=== PATIENT | female | born 1950 | race Caucasian/White ===

== ENCOUNTER 2018-09-29 19:23 | Inpatient (IN) | payer MEDICARE, OTHER, SELFPAY ==
[2018-07-21 10:18] VITALS: BMI 39.9
[2018-09-29 19:30] VITALS: BP 144/61; PULSE 79; RESP 20; TEMP 37; O2SAT 94
[2018-09-29 19:31] VITALS: BP 128/52
[2018-09-29 20:10] VITALS: BMI 42.6
--- NOTE | 2018-09-29 20:20 | PCM.HP.STD ---
Problem List (1) Acute respiratory failure with hypoxemia Status: Acute History of Present Illness Date of Admission: 09/29/18 Chief Complaint: shortness of breath The patient is a 67 year old F with a significant history of CVA; CAD status post stent; diabetes mellitus; asthma; hypertension; morbid obesity; and tobacco abuse who presented at [place] [facility] with 4-month history of progressively worsening shortness of breath at rest and increases tremendously with mild exertion. Patient reported that she has been on a course of steroids 2 times recently and a time course of antibiotics. Patient was transferred from [place] emergency department to our hospital. Associated with her symptoms is dry cough that started about a month ago. Also she reports fatigue and weakness. She thinks she has gained about 33 pounds in 3-4 weeks. She reports her current weight as 211 pounds and she thinks that about 3-4 weeks ago she was 178 pounds. He denies orthopnea or paroxysmal nocturnal dyspnea. She thinks that she has swelling in her bilateral legs. However she reports that her PCP did not think that she has a swollen in her bilateral legs but later her PCP agreed that she may have some mild bilateral swelling in her legs but she was not started on any treatment for this. Her PCP schedule her for an echocardiogram which is yet to be done; also her PCP recommended sleep study which patient refused. Patient refused sleep study because she does not have any problems sleeping and she does not snore. Also patient is scheduled to have an appointment with Dr. Mascorro, [employer] Carriage Operator on October 18, 2018. She reported that at [facility] she was made to walk and her oxygen saturations drop into the 60s. CTPA at [facility] showed no evidence of pulmonary embolism. Mild central lobular emphysema; prominent mediastinal and bilateral hilar lymph nodes likely reactive given chronic lung disease; mild cardiac enlargement; dilated main pulmonary artery as may be seen with pulmonary arterial hypertension; multiple tiny 2-3 mm stable nodules in the right upper and right middle lobe requiring no further imaging follow-up. EKG at [facility] showed normal sinus rhythm with sinus arrhythmia and right axis deviation. Reported patient's oxygen saturation was 63% on room air at [place] ED. Since patient has a history of CAD with stent, accepting physician at our Hospital wanted CAD to be ruled out so patient was admitted to the PCU. Past Medical History Medical History: Medical History (Last Reviewed 09/30/18 @ 02:02 by Dallas Mercer MD) Anxiety and depression F41.9, F32.9 Arthritis M19.90 Asthma J45.909 Back problem M53.9 Cancer C80.1 Cataracts, bilateral H26.9 Chronic headaches R51 GI problem R19.8 Gallstones K80.20 Heart disease I51.9 High triglycerides E78.1 Hives L50.9 Hyperlipidemia E78.5 IBS (irritable bowel syndrome) K58.9 Neuropathy G62.9 Pancreatitis K85.90 Seasonal allergies J30.2 Stroke I63.9 Type 2 diabetes mellitus E11.9 Dx : 1995 last exacerbation : DKA : never Hypoglycemic episode : never ER visit : never UTI (urinary tract infection) N39.0 Vision problem H54.7 HTN (hypertension) I10 Allergies ciprofloxacin Allergy (Severe, Verified 09/29/18 09:27) Hives clindamycin Allergy (Severe, Verified 09/29/18 09:27) Hives formoterol [From Dulera] Allergy (Severe, Verified 09/29/18 09:27) Unknown mometasone furoate [From Dulera] Allergy (Severe, Verified 09/29/18 09:27) Unknown Penicillins Allergy (Severe, Verified 09/29/18 09:27) Hives Sulfa (Sulfonamide Antibiotics) Allergy (Severe, Verified 09/29/18 09:27) Hives acetaminophen [From Percocet] Allergy (Unknown, Verified 09/29/18 09:27) Rash codeine Allergy (Unknown, Verified 09/29/18 09:27) Unknown fluticasone [From Advair Diskus] Allergy (Unknown, Verified 09/29/18 09:27) Unknown gemfibrozil [From Lopid] Allergy (Unknown, Verified 09/29/18 09:27) Unknown metformin Allergy (Unknown, Verified 09/29/18 09:27) Unknown oxycodone [From Percocet] Allergy (Unknown, Verified 09/29/18 09:27) Rash salmeterol [From Advair Diskus] Allergy (Unknown, Verified 09/29/18 09:27) Unknown Home Medications: Ambulatory Orders Medication Instructions Recorded albuterol sulfate 1.25 mg/3 mL 1.25 mg INHALATION Q4H PRN 07/21/18 solution for nebulization albuterol sulfate HFA 90 2 puff INHALATION Q6H PRN 07/21/18 mcg/actuation aerosol inhaler amitriptyline 25 mg tablet 25 mg PO QHS 07/21/18 atenolol 25 mg tablet 25 mg PO DAILY@1500 07/21/18 budesonide-formoterol HFA 80 2 puff INHALATION BID 07/21/18 mcg-4.5 mcg/actuation aerosol inhaler calcium citrate 200 mg (950 mg) 400 mg PO QHS tab 07/21/18 tablet clopidogrel 75 mg tablet 75 mg PO DAILY 07/21/18 cyclobenzaprine 5 mg tablet 5 mg PO TID PRN PRN 07/21/18 dicyclomine 20 mg tablet 20 mg PO TID tab 07/21/18 fenofibrate 54 mg tablet 108 mg PO DAILY tab 07/21/18 gabapentin 800 mg tablet 800 mg PO TID tab 07/21/18 losartan 100 mg tablet 100 mg PO DAILY@1500 07/21/18 montelukast 10 mg tablet 10 mg PO QHS 07/21/18 omega-3 fatty acids 500 mg capsule 500 mg PO BID cap 07/21/18 omeprazole 40 mg capsule,delayed 40 mg PO DAILY 07/21/18 release simvastatin 40 mg tablet 40 mg PO QHS 07/21/18 Fluorometholone [Fml] 1 drop OP TID 09/29/18 Insulin NPH Human [Humulin N Pen] 44 units SQ BREAKFAST 09/29/18 Insulin NPH Human [Humulin N Pen] 48 units SQ DINNER 09/29/18 Insulin Regular, Human [Novolin R] 15 - 20 unit SQ LUNCH 09/29/18 Insulin Regular, Human [Novolin R] 30 unit SQ BREAKFAST 09/29/18 Insulin Regular, Human [Novolin R] 30 unit SQ DINNER 09/29/18 Magnesium Oxide 400 mg PO QHS 09/29/18 Multivitamin with Minerals 1 tab PO DAILY 09/29/18 [Multiple Vitamin] Surgical History: Surgical History (Last Reviewed 09/30/18 @ 02:02 by Dallas Mercer MD) H/O: Z98.891 H/O: hysterectomy Z90.710 Hx of cataract surgery Z98.49 Hx of cholecystectomy Z90.49 Lives: Spouse/ Significant Other Smoking Status: Current every day smoker Alcohol: None - *Family History Maternal Family History: Family History (Last Reviewed 09/30/18 @ 02:02 by Dallas Mercer MD) Mother Asthma Arthritis Hypertension Grandmother Cancer Brother Diabetes Heart disease Hypertension Father Heart disease Hypertension Review of Systems Constitutional: Reports: Weakness, Weight Change - She reports an increase in the weight last 3-4 weeks., Fatigue. Denies: Chills, Fever HEENT: Denies: Head Aches, Sinus Congestion, Sinus Drainage Cardiovascular: Reports: Edema - Bilateral legs.. Denies: Chest Pain, Palpitations Respiratory: Reports: Cough, Shortness of breath at rest. Denies: Sputum production Gastrointestinal: Denies: Abdominal Pain, Nausea, Vomiting Genitourinary: Denies: Dysuria Musculoskeletal: Denies: Joint Pain, Joint Tenderness Skin: Denies: Rash, Wounds Neurological: Denies: Numbness, Tingling, Focal weakness Psychiatric: Denies: Anxiety, Depression, Homicidal Ideations, Suicidal Ideations Hematologic/ Lymphatic: Denies: Easy Bruising, Easy Bleeding VTE Information - Inpt Only VTE Present on Admission: No VTE Mechan Device Prophylaxis: None VTE Pharm Prophylaxis ordered?: Yes Patient Problems: Active and Suspected Problems (Last Reviewed 09/30/18 @ 02:02 by Dallas Mercer MD) Acute respiratory failure with hypoxemia (Acute) - Physical Exam General: Alert, Oriented x3, Cooperative HEENT: Atraumatic, PERRLA, EOMI, Normocephalic Neck: Supple, No JVD, Negative Carotid Bruits Lungs: Normal air movement, Diminished Cardiovascular: Regular rate, No murmurs Abdomen: Bowel Sounds Present, Soft, Non Tender Extremities: No edema, Capillary Refill Less than 3 Seconds Skin: No rashes, No breakdown Musculoskeletal: No Tenderness to Palpation of Joints or Extremities Neurological: Neuro grossly intact Psych/Mental Status: Normal Affect, Appropriate Weight: 95.8 kg Body Mass Index (BMI) 42.6 Assessment/Plan All Active Problems (Last Reviewed 09/30/18 @ 02:02 by Dallas Mercer MD) Acute respiratory failure with hypoxemia (Acute) The patient is a 67 year old F with a significant history of CVA; CAD status post stent; diabetes mellitus; asthma; hypertension; morbid obesity; and tobacco abuse who presented with 4-month history of progressively worsening shortness of breath at rest which increases tremendously with mild exertion and was found to be severely hypoxic fast on room air at outside hospital. Acute on chronic hypoxemic respiratory failure CTPA from outside Hospital without acute pathology Her proBNP at outside hospital was not remarkable. Her white count at outside hospital was not remarkable. Her hematocrit at outside hospital was elevated pointing to chronic hypoxemia. Rapid influenza a and B was negative at outside hospital. Her troponin was unremarkable at outside hospital. We will get echocardiogram to evaluate her left lung and pulmonary artery pressures.. We will start patient on scheduled DuoNeb and as needed albuterol. Patient reluctantly agreed to prednisone. She received Solu-Medrol at outside hospital. We will continue patient on prednisone 40 mg daily and will consult physical therapy manager to help figure out the etiology of her acute hypoxemic respiratory failure. Different diagnosis include worsening asthma; polymyositis/dermatomyositis; heart failure; pickwickian syndrome or other. Consider discussing with cardiology to see whether patient would be a candidate for stress testing or coronary angiogram. At [place] ED was unremarkable and his symptoms have been going on for 4 months so there is no need to trend at this time. At the time of examination I did not appreciate any edema on the bilateral legs. Daily weight beginning tonight. Review of labs at outside hospital showed bicarbonate of 35 which may be due to chronic hypercapnia. We will get ABG. Consider VQ scan for CTPE if pulmonary pressures are elevated. Hypertension On admission her blood pressure was within goal. Cozaar; spironolactone and metoprolol continued Trend blood pressures Adjust blood pressure medication as needed. Diabetes mellitus Admit admission blood glucose is was not within goal. Home hypoglycemic regimen reviewed. Will adjust and add a correction scale regimen to her home insulin . Fingerstick q. before meals at bedtime.Adjust insulin regimen as per history. She had a prescription from [facility]; Human Resources Benefits Coordinator Nurse Practitioner for A1c and urine micro albumin; and patient is requesting that this be done inpatient. Accordingly will order A1c and urine microalbumin. History of CVA Plavix continued History of CAD with stents Plavix continued. Tobacco abuse Counseled. She reports taking 3-4 cigarettes/day at this time. Nicotine patch ordered DVT Prophylaxis Subcutaneous heparin. Code Visit Inpatient E&M: 17505 Init Hosp L3
[2018-09-29 20:35] VITALS: BMI 42.7
--- NOTE | 2018-09-29 20:41 | ECHOD_ITS ---
Reason For Study: [email or web address].[email or web address] Procedure This was a 2D Doppler, Color Flow transthoracic echocardiogram. Exam performed portable in patient room. Left Ventricle Normal size and thickness. The estimated ejection fraction is 65-70 %. Normal diastology for age. No regional wall motion abnormalities noted. Right Ventricle Mildly dilated right ventricle. Normal systolic function. Atria The left atrium is mildly enlarged. Normal right atrium. Normal atrial septum. Mitral Valve Mild diffuse mitral valve thickening. Moderate mitral annular calcification extending into the posterior leaflet. Trivial mitral valve insufficiency. Tricuspid Valve Normal tricuspid valve. Mild (1+) tricuspid valve insufficiency. Right ventricular systolic pressure estimated to be 71 mmHg. Severe pulmonary hypertension. Aortic Valve Trisinus/trileaflet aortic valve. Mild diffuse aortic valve thickening. Pulmonic Valve Normal pulmonic valve. Great Vessels Normal aortic root. Normal arch. Normal inferior vena cava. Inferior vena cava collapse with sniff. Pericardium/Pleural No pericardial effusion. MMode/2D Measurements & Calculations LVIDd: 5.8 cm IVSd: 0.98 cm Ao root diam: 2.8 cm LVIDs: 3.6 cm LVPWd: 1.0 cm RVDd: 3.8 cm FS: 38.7 % LAV(MOD-bp): 67.5 ml LA A4 area: 21.5 cm2 LA dimension(2D): 4.6 cm LAV(MOD-bp) Indexed: 35.8 ml/m2 LAV(MOD-sp2): 62.9 ml LAV(MOD-sp4): 61.2 ml RA A4 area: 17.6 cm2 Doppler Measurements & Calculations MV E max manish: 125.5 cm/sec Lat Peak E' Manish: 7.9 cm/sec Med Peak E' Manish: 6.8 cm/sec MV A max manish: 108.2 cm/sec E/E' lat: 15.8 E/E' med: 18.5 MV E/A: 1.2 Ao V2 max: 147.3 cm/sec LV V1 max: 107.9 cm/sec PA V2 max: 101.0 cm/sec Ao max P.7 mmHg LV V1 max P.7 mmHg TR max manish: 373.7 cm/sec TR max P.4 mmHg Interpretation Summary The estimated ejection fraction is 65-70 %. Normal diastology for age. Mildly dilated right ventricle. The left atrium is mildly enlarged. Trivial mitral valve insufficiency. Mild (1+) tricuspid valve insufficiency. Right ventricular systolic pressure estimated to be 71 mmHg. Severe pulmonary hypertension. There is no comparison study available. Ordering Physician: Dallas Mercer Referring Physician: Natalia Nazario Performed By: Roxie Villareal, DARREN, RVT
[2018-09-29 20:51] LABS: Bedside Glucose 203 mg/dL (70-110)
[2018-09-29 20:59] VITALS: PULSE 86
[2018-09-29 21:53] LABS: Hemoglobin A1c 8.8 % (4.2-6.3)
[2018-09-29] MEDS: Amitriptyline 25 MG Tablet PO (22:27)
[2018-09-29] MEDS: Dicyclomine 10 MG Capsule 20 MG PO (22:27)
[2018-09-29] MEDS: Insulin NPH Human 100 UNITS/ML PEN 48 UNITS SC (22:29)
[2018-09-29] MEDS: Atorvastatin Calcium 20 MG Tablet PO (22:29)
[2018-09-29] MEDS: Insulin Lispro 100 UNIT/ML INSULN.PEN 25 UNIT SQ (22:30)
[2018-09-29] MEDS: Insulin Lispro 100 UNIT/ML INSULN.PEN SQ (22:31)
[2018-09-29] MEDS: Magnesium Oxide 400 MG Tablet PO (22:32)
[2018-09-29] MEDS: Montelukast 10 MG Tablet PO (22:33)
[2018-09-29] MEDS: Gabapentin 800 MG Tablet PO (22:33)
[2018-09-29 22:38] VITALS: BP 135/56; PULSE 84; RESP 18; TEMP 36.6; O2SAT 94
[2018-09-29 22:53] LABS: Microalbumin,Random Urine 56.1 mg/L (NO RANGE EST.)
[2018-09-29 22:58] VITALS: PULSE 90
[2018-09-30] VITALS (19 sets, daily range): BP systolic 110–125; BP diastolic 40–60; PULSE 69–101; RESP 12–24; TEMP 36.5–36.8; O2SAT 81–98
[2018-09-30] MEDS: Ipratropium/Albuterol Sulfate 3 ML AMPUL.NEB INHALATION ×5 (00:10→19:02)
[2018-09-30] MEDS: Insulin Lispro 100 UNIT/ML INSULN.PEN SQ ×5 (03:08→20:56)
[2018-09-30 03:16] LABS: Bedside Glucose 390 mg/dL (70-110)
[2018-09-30 05:56] LABS: Allen Test POS; Base Excess 7 mmol/L (-2 to +2); Bicarbonate 34.5 mmol/L (22-26); Blood Gas Specimen Type ART; O2 Delivery Device Nasal Can; PO2 87 mmHG (75-100); SITE R Radial; SO2 94 % (95-99); Time Given 546; Total Carbon Dioxide 37 mmol/L; pCO2 79.3 mmHg (35-45); pH 7.25 (7.35-7.45)
[2018-09-30] MEDS: Dicyclomine 10 MG Capsule 20 MG PO ×3 (06:13→20:55)
[2018-09-30] MEDS: Gabapentin 800 MG Tablet PO ×3 (06:14→20:55)
[2018-09-30 06:55] LABS: Bedside Glucose 298 mg/dL (70-110)
[2018-09-30 07:10] LABS: Absolute Lymphocyte Count 0.44 X10^3/ul (0.83-4.51); Absolute Neutrophil Count 8.9 X10^3/uL (2.0-7.7); Hematocrit 48.8 % (37-47); Hemoglobin 14.7 g/dl (12.0-15.0); Lymphocyte # 0.44 X10^3/ul (4.0); Lymphocyte % 4.6 % (19-41); Mean Corp Hgb Conc 30.1 g/gl (32-36); Mean Corpuscular Hgb 29.1 pg (27.0-32.0); Mean Corpuscular Volume 96.6 fL (81-99); Mean Platelet Vol. 11.6 fl (6.2-12.0); Monocyte# 0.32 X10^3/uL; Monocyte% 3.3 % (0-10); Neutrophil # 8.89 X10^3/uL (2.7-7.7); Neutrophil % 91.9 % (47-70); POSITIVE COUNT NO; POSITIVE DIFFERENTIAL YES; POSITIVE MORPHOLOGY NO; Platelet Count 149 K/mm3 (150-450); RBC Distribution Width CV 16.1 % (11.6-14.6); RBC Distribution Width SD 56.3 fl (35.1-43.9); Red Blood Count 5.05 M/mm3 (4.2-5.4); White Blood Count 9.7 K/mm3 (4.4-11.0)
[2018-09-30 07:11] LABS: Differential Indicated SCAN CRITERIA MET
[2018-09-30 07:19] LABS: Anion Gap 7 (5-15); BUN 15 mg/dL (7-18); BUN/Creat Ratio 14.6 RATIO (10-20); Calcium,Total 8.7 mg/dL (8.5-10.1); Chloride 96 mmol/L (98-107); Creatinine, Serum 1.03 mg/dL (0.55-1.02); EST Glomerular Filtration Rate 57 mL/min (>60); Est Glom Filt Rate - Afr Amer 68 mL/min (>60); Estimated Creatinine Clearance 79.39 ml/min; Glucose 323 mg/dL (74-106); Potassium 5.3 mmol/L (3.5-5.1); Sodium Level 137 mmol/L (136-145)
[2018-09-30] MEDS: predniSONE 20 MG Tablet 40 MG PO (08:40)
[2018-09-30] MEDS: Fenofibrate 145 MG Tablet PO (08:40)
[2018-09-30] MEDS: Multivitamins,Ther W-Minerals Tablet 1 TABLET PO (08:40)
[2018-09-30] MEDS: Pantoprazole Sodium 40 MG Tablet PO (08:40)
[2018-09-30] MEDS: Clopidogrel Bisulfate 75 MG Tablet PO (08:40)
--- NOTE | 2018-09-30 10:33 | PCM.CONS.GEN ---
Problem List (1) Morbid obesity due to excess calories Status: Chronic (2) Coronary artery disease Status: Chronic Qualifiers: Coronary Disease-Associated Artery/Lesion type: [place] artery [place] vs. transplanted heart: [place] heart Associated angina: without angina Qualified Code(s): I25.10 - Atherosclerotic heart disease of [place] coronary artery without angina pectoris (3) IBS (irritable bowel syndrome) Status: Chronic (4) History of stroke Status: Resolved (5) Asthma Status: Chronic Qualifiers: Asthma severity: mild Asthma persistence: intermittent Asthma complication type: uncomplicated Qualified Code(s): J45.20 - Mild intermittent asthma, uncomplicated (6) Acute respiratory failure with hypoxia and hypercapnia Status: Acute (7) Exertional shortness of breath Status: Acute (8) Uncontrolled type 2 diabetes mellitus Status: Chronic Qualifiers: Glycemic state: with hyperglycemia Comment: Today is second visit with this patient. Seen about 2 months ago at which time patient wanted to know about weight loss. Reason for Consult Date of Consultation: 09/30/18 Reason for Consultation: Acute combined respiratory failure History of Present Illness: The patient is a 67 year old F, with past medical history listed below, who presented to [facility] on 09/29/2018 as a direct admission from [facility] secondary to a 4-month history of progressive shortness of breath. Upon evaluation at [facility], patient reportedly desaturated into the 60s with ambulation. A CT scan of the chest showed no evidence of pulmonary embolism, but dilated main pulmonary artery and multiple subcentimeter nodules. Emphysematous changes were reported. While on PCU, patient was noted to have decreased mental status and tachypnea. An ABG was obtained showing a pH of 7.2 with CO2 retention. Patient was offered BiPAP therapy, but refused. Patient states that she would not want to be intubated, is not interested in BiPAP therapy or CPR. Patient has not discussed this with her at this time. A pulmonary consult was obtained for recommendations moving forward. Patient reportedly has been treated with antibiotics and steroids 2 times since initiation without improvement. Patient states that she continue to worsen, so presented for evaluation. Patient does report that she is gained about 35 pounds over the last 3-4 weeks. Patient denies any orthopnea or PND, but has noted some leg swelling bilaterally. Patient has been seen by her primary care physician and reportedly is to have an echocardiogram later this month. Patient does report a long history of smoking. Patient also has a history of coronary artery disease status post stent and stroke. Patient states that she struggles with her diabetes to keep her sugars under control and has no idea how she gained so much weight so quickly. Patient states her exercise tolerance is approximately 5-10 feet at this time. 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 Patient denies exposure to asbestos or TB. Patient denies any illicit drug use. No recent trauma has been reported. No travel reported. Patient has noticed that she is having more difficulty with word finding recently, similar to what she had following her stroke in the past. Patient states this is highly variable and typically I can make the words if I think hard enough. She denies any other focal neurologic deficits. No dysuria, hemoptysis, hematuria, melena or hematochezia is been reported. Review of systems otherwise negative x10 systems. Past Medical History Past Medical History (Chronic Problems): Chronic Problems (Last Reviewed 09/30/18 @ 02:02 by Dallas Mercer MD) Morbid obesity due to excess calories (Chronic) Coronary artery disease (Chronic) IBS (irritable bowel syndrome) (Chronic) Asthma (Chronic) Uncontrolled type 2 diabetes mellitus (Chronic) Today is second visit with this patient. Seen about 2 months ago at which time patient wanted to know about weight loss. Medical History: Medical History (Last Reviewed 09/30/18 @ 02:02 by Dallas Mercer MD) Anxiety and depression F41.9, F32.9 Arthritis M19.90 Asthma J45.909 Back problem M53.9 Cancer C80.1 Cataracts, bilateral H26.9 Chronic headaches R51 GI problem R19.8 Gallstones K80.20 Heart disease I51.9 High triglycerides E78.1 Hives L50.9 Hyperlipidemia E78.5 IBS (irritable bowel syndrome) K58.9 Neuropathy G62.9 Pancreatitis K85.90 Seasonal allergies J30.2 Stroke I63.9 Type 2 diabetes mellitus E11.9 Dx : 1995 last exacerbation : DKA : never Hypoglycemic episode : never ER visit : never UTI (urinary tract infection) N39.0 Vision problem H54.7 HTN (hypertension) I10 Allergies ciprofloxacin Allergy (Severe, Verified 09/29/18 09:27) Hives clindamycin Allergy (Severe, Verified 09/29/18 09:27) Hives formoterol [From Dulera] Allergy (Severe, Verified 09/29/18 09:27) Unknown mometasone furoate [From Dulera] Allergy (Severe, Verified 09/29/18 09:27) Unknown Penicillins Allergy (Severe, Verified 09/29/18 09:27) Hives Sulfa (Sulfonamide Antibiotics) Allergy (Severe, Verified 09/29/18 09:27) Hives acetaminophen [From Percocet] Allergy (Unknown, Verified 09/29/18 09:27) Rash codeine Allergy (Unknown, Verified 09/29/18 09:27) Unknown fluticasone [From Advair Diskus] Allergy (Unknown, Verified 09/29/18 09:) Unknown gemfibrozil [From Lopid] Allergy (Unknown, Verified 09/29/18 09:27) Unknown metformin Allergy (Unknown, Verified 09/29/18 09:27) Unknown oxycodone [From Percocet] Allergy (Unknown, Verified 09/29/18 09:27) Rash salmeterol [From Advair Diskus] Allergy (Unknown, Verified 09/29/18 09:27) Unknown Home Medications: Ambulatory Orders Medication Instructions Recorded albuterol sulfate 1.25 mg/3 mL 1.25 mg INHALATION Q4H PRN 07/21/18 solution for nebulization albuterol sulfate HFA 90 2 puff INHALATION Q6H PRN 07/21/18 mcg/actuation aerosol inhaler amitriptyline 25 mg tablet 25 mg PO QHS 07/21/18 atenolol 25 mg tablet 25 mg PO DAILY@1500 07/21/18 budesonide-formoterol HFA 80 2 puff INHALATION BID 07/21/18 mcg-4.5 mcg/actuation aerosol inhaler calcium citrate 200 mg (950 mg) 400 mg PO QHS tab 07/21/18 tablet clopidogrel 75 mg tablet 75 mg PO DAILY 07/21/18 cyclobenzaprine 5 mg tablet 5 mg PO TID PRN PRN 07/21/18 dicyclomine 20 mg tablet 20 mg PO TID tab 07/21/18 fenofibrate 54 mg tablet 108 mg PO DAILY tab 07/21/18 gabapentin 800 mg tablet 800 mg PO TID tab 07/21/18 losartan 100 mg tablet 100 mg PO DAILY@1500 07/21/18 montelukast 10 mg tablet 10 mg PO QHS 07/21/18 omega-3 fatty acids 500 mg capsule 500 mg PO BID cap 07/21/18 omeprazole 40 mg capsule,delayed 40 mg PO DAILY 07/21/18 release simvastatin 40 mg tablet 40 mg PO QHS 07/21/18 Fluorometholone [Fml] 1 drop OP TID 09/29/18 Insulin NPH Human [Humulin N Pen] 44 units SQ BREAKFAST 09/29/18 Insulin NPH Human [Humulin N Pen] 48 units SQ DINNER 09/29/18 Insulin Regular, Human [Novolin R] 15 - 20 unit SQ LUNCH 09/29/18 Insulin Regular, Human [Novolin R] 30 unit SQ BREAKFAST 09/29/18 Insulin Regular, Human [Novolin R] 30 unit SQ DINNER 09/29/18 Magnesium Oxide 400 mg PO QHS 09/29/18 Multivitamin with Minerals 1 tab PO DAILY 09/29/18 [Multiple Vitamin] miscInsulin syringes #[id number] ea 09/30/18 Surgical History: Surgical History (Last Reviewed 09/30/18 @ 02:02 by Dallas Mercer MD) H/O: Z98.891 H/O: hysterectomy Z90.710 Hx of cataract surgery Z98.49 Hx of cholecystectomy Z90.49 Lives: Spouse/ Significant Other Smoking Status: Current every day smoker Alcohol: None - *Family History Maternal Family History: Family History (Last Reviewed 09/30/18 @ 02:02 by Dallas Mercer MD) Mother Asthma Arthritis Hypertension Grandmother Cancer Brother Diabetes Heart disease Hypertension Father Heart disease Hypertension Review of Systems Comment: See HPI Patient Problems: Active and Suspected Problems (Last Reviewed 09/30/18 @ 02:02 by Dallas Mercer MD) Acute respiratory failure with hypoxia and hypercapnia (Acute) Acute respiratory failure with hypoxemia (Acute) Objective: CT of the chest was reviewed on disc and I agree with the formal interpretation. - Physical Exam General: Alert, Oriented x3, Cooperative, - - Dozed off intermittently during discussion. Morbidly obese. Mild conversational dyspnea. HEENT: Atraumatic, PERRLA, EOMI, Normocephalic, - - Scleral injection noted Oral: Moist Mucosa, No Gingival or Mucosal Lesions/ Ulcerations, - - Mallampati 4 Neck: Supple, No JVD, No Nodes, Trachea Midline Lungs: No rhonchi, No rales, Diminished - With body habitus, Wheezes, - - Symmetric expansion. No dullness to percussion. Cardiovascular: Regular rate, Regular Rhythm, Normal S1, Normal S2, No murmurs, No rub noted, No Gallop Abdomen: Bowel Sounds Present, Soft, Non Tender, Non-Distended, Obese Extremities: No clubbing, No cyanosis, Edema Skin: - - Arterial insufficiency changes of the lower extremities Musculoskeletal: No Tenderness to Palpation of Joints or Extremities Lymphatic: No Cervical, Supraclavicular, or Inguinal Adenopathy Neurological: Cranial nerves II-XII grossly intact, Neuro grossly intact, Motor Exam 5/5 strength throughout Psych/Mental Status: Appropriate, Flat Affect Vital Signs Temp Pulse Resp BP Pulse Ox 36.6 C 76 18 110/40 L 94 09/30/18 08:37 09/30/18 08:37 09/30/18 08:37 09/30/18 08:37 09/30/18 08:37 Oxygen Flow Rate (L/min) 2 Oxygen Delivery Method Nasal Cannula Weight: 96.2 kg Body Mass Index (BMI) 42.6 Intake and Output for Last 24 Hours 09/28/18 09/29/18 09/30/18 23:59 23:59 23:59 Intake Total 660 / 660 240 / 240 Balance 660 / 660 240 / 240 Microbiology Past 72 Hours 09/30/18 00:15 Respiratory Panel (PCR) - Final Mucosa - Nose Laboratory Tests Past 24 Hrs 09/29/18 09/29/18 09/30/18 21:14 21:49 05:46 WBC RBC Hgb Hct MCV MCH MCHC RDW RDW Differential Plt Count MPV Immature Gran % (Auto) Neut % (Auto) Lymph % (Auto) [place] % (Auto) Eos % (Auto) Baso % (Auto) Absolute Neuts (auto) Absolute Lymphs (auto) Total Counted Specimen Type ART Sample Site R Radial pH 7.25 L Bicarbonate Actual 34.5 H POC Total CO2 37 Base Excess 7 H O2 Saturation 94 L ABG pCO2 79.3 H* ABG pO2 87 Wiley Test POS O2 Delivery Device Nasal Can Liter Flow 5.0 Blood Gas Notified Whom HOSP Blood Gas Notified Time 546 Sodium Potassium Chloride Carbon Dioxide Anion Gap BUN Creatinine Estim Creat Clear Calc Est GFR (MDRD) Af Amer Est GFR (MDRD) Non-Af BUN/Creatinine Ratio Glucose Hemoglobin A1c 8.8 H Calcium Ur Random Microalbumin 56.1 09/30/18 09/30/18 06:30 06:30 WBC 9.7 RBC 5.05 Hgb 14.7 Hct 48.8 H MCV 96.6 MCH 29.1 MCHC 30.1 L RDW 16.1 H RDW Differential 56.3 H Plt Count 149 L MPV 11.6 Immature Gran % (Auto) 0.200 Neut % (Auto) 91.9 H Lymph % (Auto) 4.6 L [place] % (Auto) 3.3 Eos % (Auto) 0.0 Baso % (Auto) 0.0 Absolute Neuts (auto) 8.9 H Absolute Lymphs (auto) 0.44 L Total Counted Not Reportable Specimen Type Sample Site pH Bicarbonate Actual POC Total CO2 Base Excess O2 Saturation ABG pCO2 ABG pO2 Wiley Test O2 Delivery Device Liter Flow Blood Gas Notified Whom Blood Gas Notified Time Sodium 137 Potassium 5.3 H Chloride 96 L Carbon Dioxide 34.0 H Anion Gap 7 BUN 15 Creatinine 1.03 H Estim Creat Clear Calc 79.39 Est GFR (MDRD) Af Amer 68 Est GFR (MDRD) Non-Af 57 L BUN/Creatinine Ratio 14.6 Glucose 323 H Hemoglobin A1c Calcium 8.7 Ur Random Microalbumin POC Glucose 09/30/18 09/30/18 09/29/18 06:52 03:07 20:47 POC Glucose 298 H 390 H 203 H Assessment/Plan All Active Problems (Last Reviewed 09/30/18 @ 02:02 by Dallas Mercer MD) History of stroke (Resolved) Acute respiratory failure with hypoxia and hypercapnia (Acute) Acute respiratory failure with hypoxemia (Acute) Exertional shortness of breath (Acute) RECOMMENDATIONS: 1. Await echocardiogram 2. Consider empiric diuresis 3. Initiate IV steroids empirically with bronchodilators 4. Encourage BiPAP rescue if patient decompensates 5. Wean oxygen as tolerated to keep saturations in the low 90s IMPRESSIONS: 1. Acute combined respiratory failure of unclear etiology Patient does have some emphysematous changes noted on CT scan of the chest, but has received 2 rounds of p.o. steroids without improvement in overall condition. Patient does have significant risk factors for coronary artery disease and has gained over 22 pounds during this time. Clinical suspicion for congestive heart failure versus cor pulmonale. Patient may have an element of obstructive sleep apnea with desaturation given walking oximetry, which could lead to elevated pulmonary artery pressures. Await echocardiogram. Consider empiric diuresis. Patient does have emphysematous changes, so COPD exacerbation would be a consideration. Reasonable to initiate bronchodilators and steroids empirically. Stressed to the patient the role of BiPAP and the overall disease plan of care. Patient is refusing at this time, but if patient were to decompensate, she may reconsider BiPAP therapy. Lack of intubation and CPR are likely appropriate given patient's comorbidities. Patient likely should have a stress test or other cardiac evaluation prior to discharge. Consider consultation with cardiology. Do not believe VQ scan would be indicated. Patient is currently refusing transfer to the intensive care unit. 2. Hypertension/diabetes mellitus/history of CVA/history of CAD with stents/tobacco abuse/morbid obesity Complicates care, management, recovery and prognosis. Will need to watch blood sugars closely given diabetes and steroid therapy. If congestive heart failure is noted, removal of steroids would help with blood sugar control. Patient appears to be pre-contemplative for smoking cessation at this time. Code Visit Inpatient E&M: 52519 Init Hosp L3
[2018-09-30] MEDS: Insulin Lispro 100 UNIT/ML INSULN.PEN 25 UNIT SQ ×2 (10:39→17:11)
[2018-09-30] MEDS: Insulin NPH Human 100 UNITS/ML PEN 44 UNITS SC (10:39)
--- NOTE | 2018-09-30 11:21 | CASEMGMT ---
This RN CM to room to complete CM assessment and the neuroscientist is at bedside completing assessment at this time. Will attempt again later. Ariella PEDERSEN CM
--- NOTE | 2018-09-30 11:31 | PN_ITS ---
<Jackson Taylor - Last Filed: 09/30/18 11:25> Patient Problems: Active and Suspected Problems (Last Reviewed 09/30/18 @ 02:02 by Dallas Mercer MD) Acute respiratory failure with hypoxia and hypercapnia (Acute) Acute respiratory failure with hypoxemia (Acute) Subjective: Pt reports overall she has improvement in SOB. She does not use O2 at home, nor does she normally use cpap/bipap. Initially she was reluctant to consider bipap, however now she is agreeable. She does smoke and has done so since a teenager, has failed quitting multiple times and does not feel she is capable. She denies prior dx of CHF or COPD. She does not see a finance administrator. She has some LE edema, she states this is chronic and unchanged. She has no fever or chills. She has a nonproductive cough. - Physical Exam General: Alert, Oriented x3, Cooperative HEENT: Atraumatic, PERRLA, EOMI, Normocephalic Neck: Supple, No JVD, Negative Carotid Bruits Lungs: Diminished, Wheezes Cardiovascular: Regular rate, No murmurs Abdomen: Bowel Sounds Present, Soft, Non Tender Extremities: Edema - 2+ pitting edema BLE. Skin: No rashes, No breakdown Musculoskeletal: No Tenderness to Palpation of Joints or Extremities Neurological: Cranial nerves II-XII grossly intact Psych/Mental Status: Normal Affect, Appropriate, Alert and oriented to time, place, person, mood and affect Vital Signs Temp Pulse Resp BP Pulse Ox 97.8 F 81 18 110/40 L 94 09/30/18 08:37 09/30/18 11:04 09/30/18 08:37 09/30/18 08:37 09/30/18 08:37 Oxygen Flow Rate (L/min) 2 Oxygen Delivery Method Nasal Cannula Weight: 212 lb 1.355 oz Body Mass Index (BMI) 42.6 Intake and Output for Last 24 Hours 09/28/18 09/29/18 09/30/18 23:59 23:59 23:59 Intake Total 660 / 660 240 / 240 Balance 660 / 660 240 / 240 Microbiology Past 72 Hours 09/30/18 00:15 Respiratory Panel (PCR) - Final Mucosa - Nose Laboratory Tests Past 24 Hrs 09/29/18 09/29/18 09/30/18 21:14 21:49 05:46 WBC RBC Hgb Hct MCV MCH MCHC RDW RDW Differential Plt Count MPV Immature Gran % (Auto) Neut % (Auto) Lymph % (Auto) [place] % (Auto) Eos % (Auto) Baso % (Auto) Absolute Neuts (auto) Absolute Lymphs (auto) Total Counted Specimen Type ART Sample Site R Radial pH 7.25 L Bicarbonate Actual 34.5 H POC Total CO2 37 Base Excess 7 H O2 Saturation 94 L ABG pCO2 79.3 H* ABG pO2 87 Wiley Test POS O2 Delivery Device Nasal Can Liter Flow 5.0 Blood Gas Notified Whom [facility] Blood Gas Notified Time 546 Sodium Potassium Chloride Carbon Dioxide Anion Gap BUN Creatinine Estim Creat Clear Calc Est GFR (MDRD) Af Amer Est GFR (MDRD) Non-Af BUN/Creatinine Ratio Glucose Hemoglobin A1c 8.8 H Calcium Ur Random Microalbumin 56.1 09/30/18 09/30/18 06:30 06:30 WBC 9.7 RBC 5.05 Hgb 14.7 Hct 48.8 H MCV 96.6 MCH 29.1 MCHC 30.1 L RDW 16.1 H RDW Differential 56.3 H Plt Count 149 L MPV 11.6 Immature Gran % (Auto) 0.200 Neut % (Auto) 91.9 H Lymph % (Auto) 4.6 L [place] % (Auto) 3.3 Eos % (Auto) 0.0 Baso % (Auto) 0.0 Absolute Neuts (auto) 8.9 H Absolute Lymphs (auto) 0.44 L Total Counted Not Reportable Specimen Type Sample Site pH Bicarbonate Actual POC Total CO2 Base Excess O2 Saturation ABG pCO2 ABG pO2 Wiley Test O2 Delivery Device Liter Flow Blood Gas Notified Whom Blood Gas Notified Time Sodium 137 Potassium 5.3 H Chloride 96 L Carbon Dioxide 34.0 H Anion Gap 7 BUN 15 Creatinine 1.03 H Estim Creat Clear Calc 79.39 Est GFR (MDRD) Af Amer 68 Est GFR (MDRD) Non-Af 57 L BUN/Creatinine Ratio 14.6 Glucose 323 H Hemoglobin A1c Calcium 8.7 Ur Random Microalbumin POC Glucose 09/30/18 09/30/18 09/29/18 06:52 03:07 20:47 POC Glucose 298 H 390 H 203 H Medical Necessity - Tobacco Use Smoking Status: Current every day smoker Assessment/Plan All Active Problems (Last Reviewed 09/30/18 @ 02:02 by Dallas Mercer MD) History of stroke (Resolved) Acute respiratory failure with hypoxia and hypercapnia (Acute) Acute respiratory failure with hypoxemia (Acute) Exertional shortness of breath (Acute) 1. Acute hypoxic/hypercapnic respiratory failure - unclear etiology, possibly COPD/CHF/pulmonary HTN. Pulm consulted. Start bipap now that she is agreeable. Continue aerosols and steroids. CTA reported negative from outpatient facility. BNP also reportedly negative. Echo is pending. Afebrile, no leukocytosis. She does have chronic LE edema. Pt does feel she is improving. Respiratory panel is negative. 2. Nicotine abuse - patch. Cessation encouraged. 3. HTN - stable 4. DMt2 with morbid obesity - this is poorly controlled - A1C 8.8. will titrate insulin while here. SSI. will fluctate with steroids. 5. Hx CVA - on plavix, atenolol, losartan, statin 6. CAD - prior stents - plavix, statin 7. Mild thrombocytopenia - trend 8. Hyperkalemia - albuterol, recheck, kayex if it does not improve. DVT ppx: heparin DC planning: likely will need home o2. This patient was seen by Jackson Taylor PA-C under the supervision of Dr. Briggs. <Leroy Briggs F - Last Filed: 09/30/18 14:27> - Physical Exam Vital Signs Temp Pulse Resp BP Pulse Ox 97.8 F 81 18 110/40 L 94 09/30/18 08:37 09/30/18 11:04 09/30/18 08:37 09/30/18 08:37 09/30/18 08:37 Oxygen Flow Rate (L/min) 2 Oxygen Delivery Method Nasal Cannula Weight: 212 lb 1.355 oz Body Mass Index (BMI) 42.6 Intake and Output for Last 24 Hours 09/28/18 09/29/18 09/30/18 23:59 23:59 23:59 Intake Total 660 / 660 740 / 740 Balance 660 / 660 740 / 740 Microbiology Past 72 Hours 09/30/18 00:15 Respiratory Panel (PCR) - Final Mucosa - Nose Laboratory Tests Past 24 Hrs 09/29/18 09/29/18 09/30/18 21:14 21:49 05:46 WBC RBC Hgb Hct MCV MCH MCHC RDW RDW Differential Plt Count MPV Immature Gran % (Auto) Neut % (Auto) Lymph % (Auto) [place] % (Auto) Eos % (Auto) Baso % (Auto) Absolute Neuts (auto) Absolute Lymphs (auto) Total Counted Specimen Type ART Sample Site R Radial pH 7.25 L Bicarbonate Actual 34.5 H POC Total CO2 37 Base Excess 7 H O2 Saturation 94 L ABG pCO2 79.3 H* ABG pO2 87 Wiley Test POS O2 Delivery Device Nasal Can Liter Flow 5.0 Blood Gas Notified Whom [facility] Blood Gas Notified Time 546 Sodium Potassium Chloride Carbon Dioxide Anion Gap BUN Creatinine Estim Creat Clear Calc Est GFR (MDRD) Af Amer Est GFR (MDRD) Non-Af BUN/Creatinine Ratio Glucose Hemoglobin A1c 8.8 H Calcium Ur Random Microalbumin 56.1 09/30/18 09/30/18 06:30 06:30 WBC 9.7 RBC 5.05 Hgb 14.7 Hct 48.8 H MCV 96.6 MCH 29.1 MCHC 30.1 L RDW 16.1 H RDW Differential 56.3 H Plt Count 149 L MPV 11.6 Immature Gran % (Auto) 0.200 Neut % (Auto) 91.9 H Lymph % (Auto) 4.6 L [place] % (Auto) 3.3 Eos % (Auto) 0.0 Baso % (Auto) 0.0 Absolute Neuts (auto) 8.9 H Absolute Lymphs (auto) 0.44 L Total Counted Not Reportable Specimen Type Sample Site pH Bicarbonate Actual POC Total CO2 Base Excess O2 Saturation ABG pCO2 ABG pO2 Wiley Test O2 Delivery Device Liter Flow Blood Gas Notified Whom Blood Gas Notified Time Sodium 137 Potassium 5.3 H Chloride 96 L Carbon Dioxide 34.0 H Anion Gap 7 BUN 15 Creatinine 1.03 H Estim Creat Clear Calc 79.39 Est GFR (MDRD) Af Amer 68 Est GFR (MDRD) Non-Af 57 L BUN/Creatinine Ratio 14.6 Glucose 323 H Hemoglobin A1c Calcium 8.7 Ur Random Microalbumin POC Glucose 09/30/18 09/30/18 09/30/18 11:57 06:52 03:07 POC Glucose 370 H 298 H 390 H 09/29/18 20:47 POC Glucose 203 H Code Visit Addendum: Dr. Briggs I personally examined the patient and reviewed the chart. I agree with the above. 67-year-old female presenting as a direct admit from [facility] secondary to shortness of breath and weight gain. She was acidotic on admission on an ABG with pH of 7.2 and a CO2 level in the 70s. Pulmonology was consulted and recommended BiPAP though they felt that with the weight gain she could be heart failure and an echo was obtained demonstrating significant right ventricular systolic pressures to 71 mmHg though normal EF. At the moment we will continue treating as a COPD exacerbation given wheezing that was heard on exam that she may need Lasix intermittently given her severe pulmonary hypertension. Inpatient E&M: 14840 Subs Hosp L2
--- NOTE | 2018-09-30 11:48 | CASEMGMT ---
RN CM assessment: Face to Face with patient for initial transition planning/care coordination assessment. RN CM introduced self and role at [facility], pt voices understanding and consents to assessment at this time. Pt is sitting up in chair in no distress at this time. Pt is A/Ox4 at this time and answers all questions appropriately at this time. Care providers, pharmacy, and demographics verified/updated at this time. PCP: Aravind Specialists: Wilfred-cardio at [facility] Preferred Pharmacy: [facility] [employer] Insurance: MCR A/B, [employer] Prescription Benefit: MCR D, pt states she does pay from some Rx's out of pocket as they are cheaper that way or d/t difficulty dealing with Rx insurance. Living Will/HPOA: Pt states does not have LW/HPOA but is interested in info at this time. Pt states would like to look over the info and then talk to her tomorrow. Filipe wilson at this time, voices understanding and will check in with pt tomorrow afternoon. Pt was provided with AD forms, advanced care planning booklet, and social studies department chair pamphlet. LNOK: Win [place], Living Arrangements: Pt states lives with in 2 story home and states no concerns at home at this time. Pt states is independent with ADL's at home at this time. Transportation: Pt states drives self and states no transportation concerns at this time. DME/HHC: Pt states has the following DME: shower chair, grab bars, walker(which she doesn't use), and nebulizer. Pt states has had difficulty getting nebulizer solution lately and call placed to [facility] and they state they will be able to fill if new script sent at discharge. Pt updated at this time and voices gratification to this RN CM. Pt states she would like all scripts sent to [facility] at discharge, so this is marked as preference by this RN CM at this time. Pt states has had HHC in the past s/p CVA but has not been to SNF. Pt states no concerns with going home at time of discharge. Pt is retired. Pt states that she still smokes 5 cigarettes daily and does not drink ETOH. Pt states no further questions/concerns/needs at this time. CM to follow for home oxygen, PT/OT evals and any further discharge planning/needs. Advised pt to ask for CM if any further questions/concerns/needs arise, voices understanding. Plan: Home SStelsa PEDERSEN CM
[2018-09-30 12:00] LABS: Bedside Glucose 370 mg/dL (70-110)
[2018-09-30] MEDS: Insulin Lispro 100 UNIT/ML INSULN.PEN 10 UNIT SQ (12:34)
[2018-09-30] MEDS: Furosemide 20 MG/2 ML VIAL IV ×2 (14:53→21:06)
[2018-09-30] MEDS: Heparin Injection (Vial) 5,000 UNIT/ML VIAL 5000 UNIT SC ×2 (14:54→20:55)
[2018-09-30] MEDS: 0.9% NaCl Peripheral Flush Adult/Peds IV ×2 (14:55→20:59)
[2018-09-30] MEDS: Losartan Potassium 100 MG Tablet PO (15:03)
[2018-09-30] MEDS: Atenolol 25 MG Tablet PO (15:03)
[2018-09-30 16:41] LABS: Bedside Glucose 390 mg/dL (70-110)
[2018-09-30 16:49] LABS: Potassium 5.3 mmol/L (3.5-5.1)
[2018-09-30] MEDS: Magnesium Oxide 400 MG Tablet PO (20:55)
[2018-09-30] MEDS: Montelukast 10 MG Tablet PO (20:55)
[2018-09-30] MEDS: Atorvastatin Calcium 20 MG Tablet PO (20:55)
[2018-09-30] MEDS: Amitriptyline 25 MG Tablet PO (20:55)
[2018-09-30] MEDS: Insulin NPH Human 100 UNITS/ML PEN 48 UNITS SC (20:57)
[2018-09-30 22:51] LABS: Bedside Glucose 284 mg/dL (70-110)
[2018-10-01] VITALS (17 sets, daily range): BP systolic 105–117; BP diastolic 53–68; PULSE 64–90; RESP 12–24; TEMP 36.6–36.8; O2SAT 93–98
[2018-10-01] MEDS: Insulin Lispro 100 UNIT/ML INSULN.PEN SQ ×5 (02:55→22:20)
[2018-10-01 03:16] LABS: Bedside Glucose 166 mg/dL (70-110)
[2018-10-01] MEDS: Ipratropium/Albuterol Sulfate 3 ML AMPUL.NEB INHALATION ×6 (04:11→22:54)
[2018-10-01] MEDS: Dicyclomine 10 MG Capsule 20 MG PO ×3 (05:09→22:18)
[2018-10-01] MEDS: Gabapentin 800 MG Tablet PO ×3 (05:09→22:17)
[2018-10-01] MEDS: Heparin Injection (Vial) 5,000 UNIT/ML VIAL 5000 UNIT SC ×3 (05:09→22:18)
[2018-10-01 06:47] LABS: Anion Gap 6 (5-15); BUN 26 mg/dL (7-18); BUN/Creat Ratio 26.5 RATIO (10-20); Calcium,Total 8.6 mg/dL (8.5-10.1); Chloride 94 mmol/L (98-107); Creatinine, Serum 0.98 mg/dL (0.55-1.02); EST Glomerular Filtration Rate 60 mL/min (>60); Est Glom Filt Rate - Afr Amer 72 mL/min (>60); Estimated Creatinine Clearance 83.44 ml/min; Glucose 147 mg/dL (74-106); Potassium 4.1 mmol/L (3.5-5.1); Sodium Level 135 mmol/L (136-145)
[2018-10-01 07:10] LABS: Bedside Glucose 139 mg/dL (70-110)
[2018-10-01] MEDS: Insulin Lispro 100 UNIT/ML INSULN.PEN 25 UNIT SQ ×2 (08:23→17:26)
[2018-10-01] MEDS: Insulin NPH Human 100 UNITS/ML PEN 44 UNITS SC (08:23)
[2018-10-01] MEDS: predniSONE 20 MG Tablet 40 MG PO (08:26)
[2018-10-01] MEDS: Fenofibrate 145 MG Tablet PO (08:26)
[2018-10-01] MEDS: Multivitamins,Ther W-Minerals Tablet 1 TABLET PO (08:26)
[2018-10-01 08:30] LABS: Bedside Glucose 171 mg/dL (70-110)
[2018-10-01] MEDS: Furosemide 40 MG/4 ML Vial IV ×2 (09:24→17:31)
[2018-10-01] MEDS: Pantoprazole Sodium 40 MG Tablet PO (09:25)
[2018-10-01] MEDS: Clopidogrel Bisulfate 75 MG Tablet PO (09:25)
[2018-10-01] MEDS: 0.9% NaCl Peripheral Flush Adult/Peds IV ×2 (09:30→17:37)
--- NOTE | 2018-10-01 09:34 | PCM.PROGNOTE ---
Patient Problems: Active and Suspected Problems (Last Reviewed 09/30/18 @ 02:02 by Dallas Mercer MD) Acute respiratory failure with hypoxia and hypercapnia (Acute) Acute respiratory failure with hypoxemia (Acute) Subjective: Patient did well overnight. No acute issues were reported. Patient reports subjective improvement in dyspnea compared to yesterday. Patient continues to have some dyspnea on exertion and this morning reported I feel shaky, but I think it is my sugar. Patient states her discomfort in her legs is improved. - Physical Exam General: Alert, Oriented x3, Cooperative, No apparent distress, - - Morbidly obese. Speaking in full sentences. Supplemental oxygen in place. HEENT: Atraumatic, PERRLA, EOMI, Normocephalic, - - No scleral icterus or injection noted. Oral: Moist Mucosa, No Gingival or Mucosal Lesions/ Ulcerations Neck: Supple, No JVD, No Nodes, Trachea Midline Lungs: No rhonchi, No wheeze, No rales, Diminished, - - Symmetric expansion. No dullness to percussion. Slight kyphosis noted. Cardiovascular: Regular rate, Regular Rhythm, Normal S1, Normal S2, No murmurs, No rub noted, No Gallop Abdomen: Bowel Sounds Present, Soft, Non Tender, Non-Distended, Obese Extremities: No cyanosis, Capillary Refill Less than 3 Seconds, Edema Skin: - - Grossly unchanged compared to previous Musculoskeletal: No Tenderness to Palpation of Joints or Extremities Lymphatic: No Cervical, Supraclavicular, or Inguinal Adenopathy Neurological: Cranial nerves II-XII grossly intact, Neuro grossly intact, Motor Exam 5/5 strength throughout Psych/Mental Status: Alert and oriented to time, place, person, mood and affect Vital Signs Temp Pulse Resp BP Pulse Ox 36.7 C 78 18 108/68 98 10/01/18 09:20 10/01/18 09:20 10/01/18 09:20 10/01/18 09:20 10/01/18 09:20 Oxygen Flow Rate (L/min) 2.5 Oxygen Delivery Method Nasal Cannula Weight: 96 kg Body Mass Index (BMI) 42.6 Intake and Output for Last 24 Hours 09/29/18 09/30/18 10/01/18 23:59 23:59 23:59 Intake Total 660 / 660 1490 / 1490 240 / 240 Output Total 750 / 750 750 / 750 Balance 660 / 660 740 / 740 -510 / -510 Microbiology Past 72 Hours 09/30/18 00:15 Respiratory Panel (PCR) - Final Mucosa - Nose Laboratory Tests Past 24 Hrs 09/30/18 09/30/18 10/01/18 15:25 16:20 05:20 Sodium 135 L Potassium Cancelled 5.3 H 4.1 Chloride 94 L Carbon Dioxide 35.0 H Anion Gap 6 BUN 26 H Creatinine 0.98 Estim Creat Clear Calc 83.44 Est GFR (MDRD) Af Amer 72 Est GFR (MDRD) Non-Af 60 BUN/Creatinine Ratio 26.5 H Glucose 147 H Calcium 8.6 POC Glucose 10/01/18 10/01/18 10/01/18 08:19 07:02 02:54 POC Glucose 171 H 139 H 166 H 09/30/18 09/30/18 09/30/18 20:51 16:30 11:57 POC Glucose 284 H 390 H 370 H Medical Necessity - Tobacco Use Smoking Status: Current every day smoker Assessment/Plan All Active Problems (Last Reviewed 09/30/18 @ 02:02 by Dallas Mercer MD) History of stroke (Resolved) Acute respiratory failure with hypoxia and hypercapnia (Acute) Acute respiratory failure with hypoxemia (Acute) Exertional shortness of breath (Acute) RECOMMENDATIONS: 1. Continue diuresis 2. Continue p.o. steroids 3. Increase activity as tolerated 4. Encourage BiPAP rescue if patient decompensates 5. Wean oxygen as tolerated to keep saturations in the low 90s IMPRESSIONS: 1. Acute combined respiratory failure of unclear etiology Patient's echocardiogram shows significant elevation of right-sided pressures. It is unclear if this is secondary to chronic hypoxemia, uncontrolled sleep apnea or diastolic dysfunction. Improvement in creatinine shows improved cardiac output with diuresis indicating over distention of the RV. Would continue with diuresis for now. Patient likely can be discontinued after 5 days of steroid therapy. High clinical suspicion the patient will require supplemental oxygen with ambulation on discharge. After extensive conversation, patient was open to using BiPAP if necessary, but did not use it overnight. 2. Hypertension/diabetes mellitus/history of CVA/history of CAD with stents/tobacco abuse/morbid obesity Complicates care, management, recovery and prognosis. Will need to watch blood sugars closely given diabetes and steroid therapy. If congestive heart failure is noted, removal of steroids would help with blood sugar control. Patient appears to be pre-contemplative for smoking cessation at this time. Code Visit Inpatient E&M: 26420 Subs Hosp L3
[2018-10-01 12:06] LABS: Bedside Glucose 271 mg/dL (70-110)
[2018-10-01] MEDS: Insulin Lispro 100 UNIT/ML INSULN.PEN 10 UNIT SQ (12:08)
--- NOTE | 2018-10-01 13:05 | PN_ITS ---
<Jackson Taylor - Last Filed: 10/01/18 13:00> Patient Problems: Active and Suspected Problems (Last Reviewed 09/30/18 @ 02:02 by Dallas Mercer MD) Acute respiratory failure with hypoxia and hypercapnia (Acute) Acute respiratory failure with hypoxemia (Acute) Subjective: Patient feels that her edema has improved in her lower extremities, she feels that her breathing has greatly improved. She is still on a small amount of O2 via NC. She also wore the BiPAP overnight last night, and states that it was the best night sleep she had had in 4 months. She is agreeable to further diuresis. - Physical Exam General: Alert, Oriented x3, Cooperative HEENT: Atraumatic, PERRLA, EOMI, Normocephalic Neck: Supple, No JVD, Negative Carotid Bruits Lungs: Wheezes Cardiovascular: Regular rate, No murmurs Abdomen: Bowel Sounds Present, Soft, Non Tender Extremities: Capillary Refill Less than 3 Seconds, Edema - 2+ pitting edema ankle to below knees Skin: No rashes, No breakdown Musculoskeletal: No Tenderness to Palpation of Joints or Extremities Neurological: Cranial nerves II-XII grossly intact Psych/Mental Status: Normal Affect, Appropriate, Alert and oriented to time, place, person, mood and affect Vital Signs Temp Pulse Resp BP Pulse Ox 98.0 F 90 18 108/68 98 10/01/18 09:20 10/01/18 11:14 10/01/18 11:14 10/01/18 09:20 10/01/18 09:20 Oxygen Flow Rate (L/min) 2 Oxygen Delivery Method Nasal Cannula Weight: 211 lb 10.3 oz Body Mass Index (BMI) 42.6 Intake and Output for Last 24 Hours 09/29/18 09/30/18 10/01/18 23:59 23:59 23:59 Intake Total 660 / 660 1490 / 1490 765 / 765 Output Total 750 / 750 1650 / 1650 Balance 660 / 660 740 / 740 -885 / -885 Microbiology Past 72 Hours 09/30/18 00:15 Respiratory Panel (PCR) - Final Mucosa - Nose Laboratory Tests Past 24 Hrs 09/30/18 09/30/18 10/01/18 15:25 16:20 05:20 Sodium 135 L Potassium Cancelled 5.3 H 4.1 Chloride 94 L Carbon Dioxide 35.0 H Anion Gap 6 BUN 26 H Creatinine 0.98 Estim Creat Clear Calc 83.44 Est GFR (MDRD) Af Amer 72 Est GFR (MDRD) Non-Af 60 BUN/Creatinine Ratio 26.5 H Glucose 147 H Calcium 8.6 POC Glucose 10/01/18 10/01/18 10/01/18 11:47 08:19 07:02 POC Glucose 271 H 171 H 139 H 10/01/18 09/30/18 09/30/18 02:54 20:51 16:30 POC Glucose 166 H 284 H 390 H Medical Necessity - Tobacco Use Smoking Status: Current every day smoker Assessment/Plan All Active Problems (Last Reviewed 09/30/18 @ 02:02 by Dallas Mercer MD) History of stroke (Resolved) Acute respiratory failure with hypoxia and hypercapnia (Acute) Acute respiratory failure with hypoxemia (Acute) Exertional shortness of breath (Acute) 1. Acute hypoxic/hypercapnic respiratory failure - 2/2 severe pulmonary HTN, Cor pulmonale, probable COPD exacerbation (no formal testing). Pulm consulted. Greatly improved. Tolerated bipap. Lasix increased to 40 BID. Continue aerosols and steroids. CTA reported negative from outpatient facility. BNP also reportedly negative. Afebrile, no leukocytosis. She does have chronic LE edema. Pt does feel she is improving. Respiratory panel is negative. EF 65-70% with normal diastology, RVSP 71, 1+tvi -One more day IV diuresis. -Pt needs sleep study - likely has CIARRA/OHS 2. Nicotine abuse - patch. Cessation encouraged. 3. HTN - stable 4. DMt2 with morbid obesity - this is poorly controlled - A1C 8.8. will titrate insulin while here. SSI. will fluctate with steroids. 5. Hx CVA - on plavix, atenolol, losartan, statin 6. CAD - prior stents - plavix, statin 7. Mild thrombocytopenia - trend 8. Hyperkalemia - resolved. DVT ppx: heparin DC planning: likely will need home o2. This patient was seen by Jackson Taylor PA-C under the supervision of Dr. Briggs. <Leroy Briggs F - Last Filed: 10/01/18 14:27> - Physical Exam Vital Signs Temp Pulse Resp BP Pulse Ox 98.0 F 90 18 108/68 98 10/01/18 09:20 10/01/18 11:14 10/01/18 11:14 10/01/18 09:20 10/01/18 09:20 Oxygen Flow Rate (L/min) 2 Oxygen Delivery Method Nasal Cannula Weight: 211 lb 10.3 oz Body Mass Index (BMI) 42.6 Intake and Output for Last 24 Hours 09/29/18 09/30/18 10/01/18 23:59 23:59 23:59 Intake Total 660 / 660 1490 / 1490 765 / 765 Output Total 750 / 750 1650 / 1650 Balance 660 / 660 740 / 740 -885 / -885 Microbiology Past 72 Hours 09/30/18 00:15 Respiratory Panel (PCR) - Final Mucosa - Nose Laboratory Tests Past 24 Hrs 09/30/18 09/30/18 10/01/18 15:25 16:20 05:20 Sodium 135 L Potassium Cancelled 5.3 H 4.1 Chloride 94 L Carbon Dioxide 35.0 H Anion Gap 6 BUN 26 H Creatinine 0.98 Estim Creat Clear Calc 83.44 Est GFR (MDRD) Af Amer 72 Est GFR (MDRD) Non-Af 60 BUN/Creatinine Ratio 26.5 H Glucose 147 H Calcium 8.6 POC Glucose 10/01/18 10/01/18 10/01/18 11:47 08:19 07:02 POC Glucose 271 H 171 H 139 H 10/01/18 09/30/18 09/30/18 02:54 20:51 16:30 POC Glucose 166 H 284 H 390 H Code Visit Addendum: Dr. Briggs I personally examined the patient and reviewed the chart. I agree with the above. 67-year-old female with a COPD exacerbation, cor pulmonale and severe pulmonary hypertension with shortness of breath. She is doing much better after COPD therapy and Lasix. Right now we will continue with daily IV diuresis and steroids with breathing treatments. The plan will be to discharge in the morning with outpatient follow-up with her primary care physician as well as pulmonology. Inpatient E&M: [id number] [facility] Hosp L2
[2018-10-01] MEDS: Losartan Potassium 100 MG Tablet PO (15:18)
[2018-10-01] MEDS: Atenolol 25 MG Tablet PO (15:18)
[2018-10-01 17:11] LABS: Bedside Glucose 344 mg/dL (70-110)
[2018-10-01] MEDS: Insulin NPH Human 100 UNITS/ML PEN 48 UNITS SC (17:28)
[2018-10-01] MEDS: Atorvastatin Calcium 20 MG Tablet PO (22:18)
[2018-10-01] MEDS: Montelukast 10 MG Tablet PO (22:18)
[2018-10-01] MEDS: Amitriptyline 25 MG Tablet PO (22:18)
[2018-10-01] MEDS: Magnesium Oxide 400 MG Tablet PO (22:18)
[2018-10-01] MEDS: FLUOROMETHOLONE 1 DROP BOTTLE 1 DRP OP (22:21)
[2018-10-01 22:36] LABS: Bedside Glucose 307 mg/dL (70-110)
[2018-10-02] VITALS (10 sets, daily range): BP systolic 112–134; BP diastolic 54–65; PULSE 66–80; RESP 16–20; TEMP 36.6–36.7; O2SAT 83–97
[2018-10-02] MEDS: Insulin Lispro 100 UNIT/ML INSULN.PEN SQ ×3 (02:55→11:51)
[2018-10-02 03:11] LABS: Bedside Glucose 253 mg/dL (70-110)
[2018-10-02] MEDS: Ipratropium/Albuterol Sulfate 3 ML AMPUL.NEB INHALATION ×3 (03:27→10:59)
[2018-10-02] MEDS: Gabapentin 800 MG Tablet PO (05:37)
[2018-10-02] MEDS: Dicyclomine 10 MG Capsule 20 MG PO (05:37)
[2018-10-02] MEDS: FLUOROMETHOLONE 1 DROP BOTTLE 1 DRP OP (05:38)
[2018-10-02] MEDS: Heparin Injection (Vial) 5,000 UNIT/ML VIAL 5000 UNIT SC (05:38)
[2018-10-02 07:00] LABS: Anion Gap 9 (5-15); BUN 31 mg/dL (7-18); BUN/Creat Ratio 27.7 RATIO (10-20); Calcium,Total 8.9 mg/dL (8.5-10.1); Chloride 90 mmol/L (98-107); Creatinine, Serum 1.12 mg/dL (0.55-1.02); EST Glomerular Filtration Rate 51 mL/min (>60); Est Glom Filt Rate - Afr Amer 62 mL/min (>60); Estimated Creatinine Clearance 71.95 ml/min; Glucose 232 mg/dL (74-106); Potassium 4.5 mmol/L (3.5-5.1); Sodium Level 137 mmol/L (136-145)
[2018-10-02 07:50] LABS: Bedside Glucose 201 mg/dL (70-110)
--- NOTE | 2018-10-02 07:55 | PCM.PROGNOTE ---
Patient Problems: Active and Suspected Problems (Last Reviewed 09/30/18 @ 02:02 by Dallas Mercer MD) Acute respiratory failure with hypoxia and hypercapnia (Acute) Acute respiratory failure with hypoxemia (Acute) Subjective: Patient feels significantly better compared to admission. Patient states that she continues to have a periodic cough and some dyspnea on exertion, but feels this is much improved compared to previous. - Physical Exam General: Alert, Oriented x3, Cooperative, No apparent distress, - - Morbidly obese. No conversational dyspnea. HEENT: Atraumatic, PERRLA, EOMI, Normocephalic, - - No scleral icterus or injection noted. Oral: Moist Mucosa, No Gingival or Mucosal Lesions/ Ulcerations Neck: Supple, No JVD, No Nodes, Trachea Midline, - - JVD difficult to assess secondary to body habitus Lungs: No rhonchi, No wheeze, No rales, Diminished, - - Kyphosis noted Cardiovascular: Regular rate, Regular Rhythm, Normal S1, Normal S2, No murmurs, No rub noted, No Gallop Abdomen: Bowel Sounds Present, Soft, Non Tender, Non-Distended, Obese Extremities: No clubbing, No cyanosis, No edema, Capillary Refill Less than 3 Seconds Skin: - - No significant change compared to previous Musculoskeletal: No Tenderness to Palpation of Joints or Extremities Lymphatic: No Cervical, Supraclavicular, or Inguinal Adenopathy Neurological: Cranial nerves II-XII grossly intact, Neuro grossly intact, Motor Exam 5/5 strength throughout Psych/Mental Status: Alert and oriented to time, place, person, mood and affect Vital Signs Temp Pulse Resp BP Pulse Ox 36.7 C 68 16 112/54 L 96 10/02/18 05:57 10/02/18 07:25 10/02/18 07:05 10/02/18 05:57 10/02/18 07:05 Oxygen Flow Rate (L/min) 2 Oxygen Delivery Method Nasal Cannula Weight: 94.8 kg Body Mass Index (BMI) 42.6 Intake and Output for Last 24 Hours 09/30/18 10/01/18 10/02/18 23:59 23:59 23:59 Intake Total 1490 / 1490 1390 / 1390 330 / 330 Output Total 750 / 750 2850 / 2850 250 / 250 Balance 740 / 740 -1460 / -1460 80 / 80 Microbiology Past 72 Hours 09/30/18 00:15 Respiratory Panel (PCR) - Final Mucosa - Nose Laboratory Tests Past 24 Hrs 10/02/18 05:28 Sodium 137 Potassium 4.5 Chloride 90 L Carbon Dioxide 38.0 H Anion Gap 9 BUN 31 H Creatinine 1.12 H Estim Creat Clear Calc 71.95 Est GFR (MDRD) Af Amer 62 Est GFR (MDRD) Non-Af 51 L BUN/Creatinine Ratio 27.7 H Glucose 232 H Calcium 8.9 POC Glucose 10/02/18 10/02/18 10/01/18 07:41 02:53 22:12 POC Glucose 201 H 253 H 307 H 10/01/18 10/01/18 10/01/18 16:37 11:47 08:19 POC Glucose 344 H 271 H 171 H Medical Necessity - Tobacco Use Smoking Status: Current every day smoker Assessment/Plan All Active Problems (Last Reviewed 09/30/18 @ 02:02 by Dallas Mercer MD) History of stroke (Resolved) Acute respiratory failure with hypoxia and hypercapnia (Acute) Acute respiratory failure with hypoxemia (Acute) Exertional shortness of breath (Acute) RECOMMENDATIONS: 1. Okay to switch to p.o. diuretic therapy at low dose 2. Complete 5-day steroid burst 3. Increase activity as tolerated 4. Walking oximetry prior to discharge 5. Wean oxygen as tolerated to keep saturations in the low 90s IMPRESSIONS: 1. Acute combined respiratory failure of unclear etiology Patient's echocardiogram shows significant elevation of right-sided pressures. She has received some diuretic therapy with good response. Likely okay to transition to p.o. diuretic therapy. Patient should likely have a repeat BMP in approximately 1 week with follow-up with PCP. We can see patient in our office in 2 weeks with nurse practitioner for complete pulmonary function test and workup of pulmonary hypertension. Patient has high likelihood of requiring supplemental oxygen on discharge. Stressed to the patient the importance of avoiding open flames around oxygen. Patient does have a history of active tobacco abuse prior to hospitalization. 2. Hypertension/diabetes mellitus/history of CVA/history of CAD with stents/tobacco abuse/morbid obesity Complicates care, management, recovery and prognosis. Will need to watch blood sugars closely given diabetes and steroid therapy. If congestive heart failure is noted, removal of steroids would help with blood sugar control. Patient appears to be pre-contemplative for smoking cessation at this time. Code Visit Inpatient E&M: 68973 Subs Hosp L2
[2018-10-02] MEDS: Insulin Lispro 100 UNIT/ML INSULN.PEN 25 UNIT SQ (08:10)
[2018-10-02] MEDS: Multivitamins,Ther W-Minerals Tablet 1 TABLET PO (08:11)
[2018-10-02] MEDS: Insulin NPH Human 100 UNITS/ML PEN 44 UNITS SC (08:11)
[2018-10-02] MEDS: Fenofibrate 145 MG Tablet PO (08:11)
[2018-10-02] MEDS: Clopidogrel Bisulfate 75 MG Tablet PO (08:12)
[2018-10-02] MEDS: predniSONE 20 MG Tablet 40 MG PO (08:12)
[2018-10-02] MEDS: Pantoprazole Sodium 40 MG Tablet PO (08:13)
[2018-10-02] MEDS: Furosemide 40 MG/4 ML Vial IV (08:13)
[2018-10-02] MEDS: 0.9% NaCl Peripheral Flush Adult/Peds IV (08:21)
--- NOTE | 2018-10-02 11:26 | DCINST_ITS ---
- Discharge Diagnoses Current Active Problems: Current Active and Chronic Problems (Last Reviewed 09/30/18 @ 02:02 by Dallas Mercer MD) Morbid obesity due to excess calories (Chronic) Coronary artery disease (Chronic) IBS (irritable bowel syndrome) (Chronic) Asthma (Chronic) Acute respiratory failure with hypoxia and hypercapnia (Acute) Acute respiratory failure with hypoxemia (Acute) You will use the following diet at home:: Calorie/Carbohydrate Controlled (specify 1200, 1400, etc), Cardiac Your food should be the consistency of: Regular Your liquids should be the consistency of: Regular/Thin Discharge Activity: Return to Normal Activity Call your doctor if you observe: Shortness of breath, Dizziness, Fainting spells, Chest pain, Increased palpitations (irregular heartbeat) Pending Tests on Discharge: BMP next week with her PCP to monitor renal function Allergies/Adverse Reactions: Allergies ciprofloxacin Allergy (Severe, Verified 09/29/18 09:27) Hives clindamycin Allergy (Severe, Verified 09/29/18 09:27) Hives formoterol [From Dulera] Allergy (Severe, Verified 09/29/18 09:27) Unknown mometasone furoate [From Dulera] Allergy (Severe, Verified 09/29/18 09:27) Unknown Penicillins Allergy (Severe, Verified 09/29/18 09:27) Hives Sulfa (Sulfonamide Antibiotics) Allergy (Severe, Verified 09/29/18 09:27) Hives acetaminophen [From Percocet] Allergy (Unknown, Verified 09/29/18 09:27) Rash codeine Allergy (Unknown, Verified 09/29/18 09:27) Unknown fluticasone [From Advair Diskus] Allergy (Unknown, Verified 09/29/18 09:27) Unknown gemfibrozil [From Lopid] Allergy (Unknown, Verified 09/29/18 09:27) Unknown metformin Allergy (Unknown, Verified 09/29/18 09:27) Unknown oxycodone [From Percocet] Allergy (Unknown, Verified 09/29/18 09:27) Rash salmeterol [From Advair Diskus] Allergy (Unknown, Verified 09/29/18 09:27) Unknown Medications to take at Discharge albuterol sulfate HFA 90 mcg/actuation aerosol inhaler 2 puff INHALATION Q6H PRN 07/21/18 amitriptyline 25 mg tablet 25 mg PO QHS 07/21/18 atenolol 25 mg tablet 25 mg PO DAILY@1500 07/21/18 budesonide-formoterol HFA 80 mcg-4.5 mcg/actuation aerosol inhaler 2 puff INHALATION BID 07/21/18 calcium citrate 200 mg (950 mg) tablet 400 mg PO QHS tab 07/21/18 clopidogrel 75 mg tablet 75 mg PO DAILY 07/21/18 cyclobenzaprine 5 mg tablet 5 mg PO TID PRN PRN 07/21/18 dicyclomine 20 mg tablet 20 mg PO TID tab 07/21/18 fenofibrate 54 mg tablet 108 mg PO DAILY tab 07/21/18 gabapentin 800 mg tablet 800 mg PO TID tab 07/21/18 losartan 100 mg tablet 100 mg PO DAILY@1500 07/21/18 montelukast 10 mg tablet 10 mg PO QHS 07/21/18 omega-3 fatty acids 500 mg capsule 500 mg PO BID cap 07/21/18 omeprazole 40 mg capsule,delayed release 40 mg PO DAILY 07/21/18 simvastatin 40 mg tablet 40 mg PO QHS 07/21/18 Fluorometholone [Fml] 1 drop OP TID 09/29/18 Insulin NPH Human [Humulin N Pen] 44 units SQ BREAKFAST 09/29/18 Insulin NPH Human [Humulin N Pen] 48 units SQ DINNER 09/29/18 Insulin Regular, Human [Novolin R] 15 - 20 unit SQ LUNCH 09/29/18 Insulin Regular, Human [Novolin R] 30 unit SQ BREAKFAST 09/29/18 Insulin Regular, Human [Novolin R] 30 unit SQ DINNER 09/29/18 Magnesium Oxide 400 mg PO QHS 09/29/18 Multivitamin with Minerals [Multiple Vitamin] 1 tab PO DAILY 09/29/18 miscInsulin syringes #4501 ea 09/30/18 Albuterol Aerosols [Ventolin Aerosols] 2.5 mg INHALATION Q6H PRN PRN #120 vial 10/01/18 Furosemide [Lasix] 40 mg PO DAILY #30 tablet 10/02/18 Prednisone 20 mg PO BID #10 tablet 10/02/18 The following prescriptions were given: Albuterol Aerosols [Ventolin Aerosols] 2.5 mg INHALATION Q6H PRN PRN #120 vial PRN Reason: Sob &/Or Wheezing Furosemide [Lasix] 40 mg PO DAILY #30 tablet Prednisone 20 mg PO BID #10 tablet Primary Care Physician: Natalia Nazario NP-C [Primary Care Provider] - Please follow up with your Primary Care Physician in: 3-5 days Test Results: Test results from this visit will be discussed in further detail at your follow- up appointment, if applicable. Please Follow Up With: Reji Chauhan MD
--- NOTE | 2018-10-02 11:27 | PCM.DC.SUM ---
Discharge Date and Diagnosis - Problem List Patient Problems: Active and Suspected Problems (Last Reviewed 09/30/18 @ 02:02 by Dallas Mercer MD) Acute respiratory failure with hypoxia and hypercapnia (Acute) Acute respiratory failure with hypoxemia (Acute) Date of Admission: 09/29/18 Date of Discharge: 10/02/18 - Primary Discharge Diagnosis Active and Suspected Problems (Last Reviewed 09/30/18 @ 02:02 by Dallas Mercer MD) Acute respiratory failure with hypoxia and hypercapnia (Acute) Acute respiratory failure with hypoxemia (Acute) - Secondary Discharge Diagnosis Chronic Problems (Last Reviewed 09/30/18 @ 02:02 by Dallas Mercer MD) Morbid obesity due to excess calories (Chronic) Coronary artery disease (Chronic) IBS (irritable bowel syndrome) (Chronic) Asthma (Chronic) Uncontrolled type 2 diabetes mellitus (Chronic) Today is second visit with this patient. Seen about 2 months ago at which time patient wanted to know about weight loss. Hospital Course and Treatment Consults: Pulmonology Operations: None Procedures: 2-D Echocardiogram - Interpretation Summary The estimated ejection fraction is 65-70 %. Normal diastology for age. Mildly dilated right ventricle. The left atrium is mildly enlarged. Trivial mitral valve insufficiency. Mild (1+) tricuspid valve insufficiency. Right ventricular systolic pressure estimated to be 71 mmHg. Severe pulmonary hypertension. There is no comparison study available. Summary of Care Provided: Per HPI: The patient is a 67 year old F with a significant history of CVA; CAD status post stent; diabetes mellitus; asthma; hypertension; morbid obesity; and tobacco abuse who presented at [facility] with 4-month history of progressively worsening shortness of breath at rest and increases tremendously with mild exertion. Patient reported that she has been on a course of steroids 2 times recently and a time course of antibiotics. Patient was transferred from [place] emergency department to our hospital. Associated with her symptoms is dry cough that started about a month ago. Also she reports fatigue and weakness. She thinks she has gained about 33 pounds in 3-4 weeks. She reports her current weight as 211 pounds and she thinks that about 3-4 weeks ago she was 178 pounds. He denies orthopnea or paroxysmal nocturnal dyspnea. She thinks that she has swelling in her bilateral legs. However she reports that her PCP did not think that she has a swollen in her bilateral legs but later her PCP agreed that she may have some mild bilateral swelling in her legs but she was not started on any treatment for this. Her PCP schedule her for an echocardiogram which is yet to be done; also her PCP recommended sleep study which patient refused. Patient refused sleep study because she does not have any problems sleeping and she does not snore. Also patient is scheduled to have an appointment with Dr. Mascorro, Payment Collector on October 18, 2018. She reported that at [facility] she was made to walk and her oxygen saturations drop into the 60s. CTPA at [facility] showed no evidence of pulmonary embolism. Mild central lobular emphysema; prominent mediastinal and bilateral hilar lymph nodes likely reactive given chronic lung disease; mild cardiac enlargement; dilated main pulmonary artery as may be seen with pulmonary arterial hypertension; multiple tiny 2-3 mm stable nodules in the right upper and right middle lobe requiring no further imaging follow-up. EKG at [facility] showed normal sinus rhythm with sinus arrhythmia and right axis deviation. Reported patient's oxygen saturation was 63% on room air at [facility]. Since patient has a history of CAD with stent, accepting physician at our Hospital wanted CAD to be ruled out so patient was admitted to the PCU. Hospital Course: 1. Acute hypoxic and hypercapnic respiratory failure secondary to severe pulmonary hypertension and cor pulmonale with a probable COPD exacerbation -67-year-old female who presented to [facility] with complaints of shortness of breath and weight gain. She had a CTA of the chest which was negative for PE at the outside facility however she was not maintaining her oxygen sats and they transferred her to this facility. On admission her ABG was significant for a respiratory acidosis, with a pH of 7.25, a PCO2 of 79.3 and a bicarb of 34.5. She did tolerate the BiPAP for the first day that she was here and she was treated as both a COPD exacerbation as well as possible heart failure. She was given IV diuresis as well as steroids and nebulizer therapy. She had an echo which demonstrated a normal ejection fraction but significant pulmonary hypertension. The diuresis and the steroids helped her wheezing resolved on the day of discharge and she had gone down by about 3 pounds from her admission weight on the day of discharge. She had an ambulatory pulse ox which went to 83% on room air, so she will be discharged with oxygen. We will also discharge her with daily Lasix 40 mg and prednisone 40 mg for 5 days as well as continuing her home inhalers. She is to follow-up with her primary care doctor in 1 week for a BMP to monitor her renal function given the new diuretic. She will follow-up with pulmonology in 2 weeks for further outpatient testing to possibly include sleep study to rule out CIARRA. 2. DM 2 -I discussed with her that since she is on steroids, her insulin requirements may fluctuate and that she should monitor her blood sugar more closely while taking the steroids. We also extensively discussed diet and exercise as a way to control both her diabetes and her morbid obesity. She did seem receptive but we will see if she is able to follow through. 3. Her other medical diagnoses were evaluated and her home medications were continued where appropriate Patient Problems: Active and Suspected Problems (Last Reviewed 09/30/18 @ 02:02 by Dallas Mercer MD) Acute respiratory failure with hypoxia and hypercapnia (Acute) Acute respiratory failure with hypoxemia (Acute) - Physical Exam General: Alert, Oriented x3, Cooperative, No apparent distress HEENT: Atraumatic, PERRLA, EOMI, Normocephalic Oral: Moist Mucosa Neck: Supple, No JVD, Trachea Midline Lungs: Normal air movement, No rhonchi, No wheeze, No rales, Diminished Cardiovascular: Regular rate, Regular Rhythm, Normal S1, Normal S2, No murmurs, No rub noted, No Gallop Abdomen: Soft, Non Tender, Non-Distended, No Hepato-splenomegaly Extremities: Capillary Refill Less than 3 Seconds, Edema - 2+ pitting Skin: No rashes, No breakdown Neurological: Neuro grossly intact, Sensory exam intact to light touch and pain Psych/Mental Status: Normal Affect, Appropriate Vital Signs Temp Pulse Resp BP Pulse Ox 98.0 F 66 18 134/65 H 90 10/02/18 08:09 10/02/18 08:09 10/02/18 08:09 10/02/18 08:09 10/02/18 10:41 Oxygen Flow Rate (L/min) [ 4 AMBULATION with Oxygen] Oxygen Flow Rate (L/min) 2 Oxygen Delivery Method Nasal Cannula Weight: 208 lb 15.971 oz Body Mass Index (BMI) 42.6 Intake and Output for Last 24 Hours 09/30/18 10/01/18 10/02/18 23:59 23:59 23:59 Intake Total 1490 / 1490 1390 / 1390 810 / 810 Output Total 750 / 750 2850 / 2850 1250 / 1250 Balance 740 / 740 -1460 / -1460 -440 / -440 Microbiology Past 72 Hours 09/30/18 00:15 Respiratory Panel (PCR) - Final Mucosa - Nose Laboratory Tests Past 24 Hrs 10/02/18 05:28 Sodium 137 Potassium 4.5 Chloride 90 L Carbon Dioxide 38.0 H Anion Gap 9 BUN 31 H Creatinine 1.12 H Estim Creat Clear Calc 71.95 Est GFR (MDRD) Af Amer 62 Est GFR (MDRD) Non-Af 51 L BUN/Creatinine Ratio 27.7 H Glucose 232 H Calcium 8.9 POC Glucose 10/02/18 10/02/18 10/01/18 07:41 02:53 22:12 POC Glucose 201 H 253 H 307 H 10/01/18 10/01/18 16:37 11:47 POC Glucose 344 H 271 H Discharge Activity: Return to Normal Activity Call your doctor if you observe: Shortness of breath, Dizziness, Fainting spells, Chest pain, Increased palpitations (irregular heartbeat) Home Medications: Medications to take at Discharge albuterol sulfate HFA 90 mcg/actuation aerosol inhaler 2 puff INHALATION Q6H PRN 07/21/18 amitriptyline 25 mg tablet 25 mg PO QHS 07/21/18 atenolol 25 mg tablet 25 mg PO DAILY@1500 07/21/18 budesonide-formoterol HFA 80 mcg-4.5 mcg/actuation aerosol inhaler 2 puff INHALATION BID 07/21/18 calcium citrate 200 mg (950 mg) tablet 400 mg PO QHS tab 07/21/18 clopidogrel 75 mg tablet 75 mg PO DAILY 07/21/18 cyclobenzaprine 5 mg tablet 5 mg PO TID PRN PRN 07/21/18 dicyclomine 20 mg tablet 20 mg PO TID tab 07/21/18 fenofibrate 54 mg tablet 108 mg PO DAILY tab 07/21/18 gabapentin 800 mg tablet 800 mg PO TID tab 07/21/18 losartan 100 mg tablet 100 mg PO DAILY@1500 07/21/18 montelukast 10 mg tablet 10 mg PO QHS 07/21/18 omega-3 fatty acids 500 mg capsule 500 mg PO BID cap 07/21/18 omeprazole 40 mg capsule,delayed release 40 mg PO DAILY 07/21/18 simvastatin 40 mg tablet 40 mg PO QHS 07/21/18 Fluorometholone [Fml] 1 drop OP TID 09/29/18 Insulin NPH Human [Humulin N Pen] 44 units SQ BREAKFAST 09/29/18 Insulin NPH Human [Humulin N Pen] 48 units SQ DINNER 09/29/18 Insulin Regular, Human [Novolin R] 15 - 20 unit SQ LUNCH 09/29/18 Insulin Regular, Human [Novolin R] 30 unit SQ BREAKFAST 09/29/18 Insulin Regular, Human [Novolin R] 30 unit SQ DINNER 09/29/18 Magnesium Oxide 400 mg PO QHS 09/29/18 Multivitamin with Minerals [Multiple Vitamin] 1 tab PO DAILY 09/29/18 miscInsulin syringes #4501 ea 09/30/18 Albuterol Aerosols [Ventolin Aerosols] 2.5 mg INHALATION Q6H PRN PRN #120 vial 10/01/18 Furosemide [Lasix] 40 mg PO DAILY #30 tablet 10/02/18 Prednisone 20 mg PO BID #10 tablet 10/02/18 Following Prescrptions Were Given to Patient: Albuterol Aerosols [Ventolin Aerosols] 2.5 mg INHALATION Q6H PRN PRN #120 vial PRN Reason: Sob &/Or Wheezing Furosemide [Lasix] 40 mg PO DAILY #30 tablet Prednisone 20 mg PO BID #10 tablet Primary Care Physician: Natalia Nazario NP-C [Primary Care Provider] - Please follow up with your Primary Care Physician in: 3-5 days Please Follow Up With: Reji Chauhan MD Disposition: Home Minutes spent on discharge:: 35 Patient Condition:: Stable Medical Necessity - Tobacco Use Smoking Status: Current every day smoker Meaningful Use Info Meaningful Use Diagnoses (Choose all that apply): None applicable Code Visit Inpatient E&M: 82340 Disch Hosp
--- NOTE | 2018-10-02 11:28 | CPS ---
pt placed back on 2 lpm....92%. nurse aware
[2018-10-02] MEDS: Insulin Lispro 100 UNIT/ML INSULN.PEN 10 UNIT SQ (11:51)
[2018-10-02 12:01] LABS: Bedside Glucose 206 mg/dL (70-110)
== END 2018-10-02 14:59 | disposition home or self-care (01) | DRG 189 ==
PROVIDERS: Hospitalist; Physician Assistant; Family Provider Nurse Practitioner Adult Health; PCP Nurse Practitioner Adult Health; Visit Provider Family Medicine
DX: J96.02 Acute respiratory failure with hypercapnia (principal); Z68.41 Body mass index [BMI] 40.0-44.9, adult; I25.10 Atherosclerotic heart disease of native coronary artery without angina pectoris; E66.01 Morbid (severe) obesity due to excess calories; I27.20 Pulmonary hypertension, unspecified; I27.81 Cor pulmonale (chronic); E87.5 Hyperkalemia; E11.65 Type 2 diabetes mellitus with hyperglycemia; Z79.4 Long term (current) use of insulin; Z79.02 Long term (current) use of antithrombotics/antiplatelets; Z86.73 Personal history of transient ischemic attack (TIA), and cerebral infarction without residual deficits; Z95.5 Presence of coronary angioplasty implant and graft; I10 Essential (primary) hypertension; K58.9 Irritable bowel syndrome, unspecified; J45.909 Unspecified asthma, uncomplicated; Z72.0 Tobacco use
CPT/HCPCS: 36415; 36600; 80048; 82043; 82803; 82962; 83036; 84132; 85025; 87633; 93306; 94002; 94003; 94640; 94667; 94668; 97116; 97162; 97165; 97530; 97802; 99406; A4216; J1940

== ENCOUNTER → 2018-10-18 10:48 | Outpatient (CLI) | payer MEDICARE, OTHER, SELFPAY ==
[2018-10-18 09:36] VITALS: BMI 41.8
[2018-10-18 12:37] LABS: Rheumatoid Factor < 10.0 IU/mL (<15)
[2018-10-19 15:06] LABS: ANTINUCLEAR ANTIBODIES DIRECT Negative (Negative)
[2018-10-20 03:07] LABS: Cytoplasmic Ab (C-ANCA) <1:20 titer (Neg:<1:20)
[2018-10-20 11:38] LABS: CCP IgG Antibodies 7 units (0-19); Perinuclear Ab (P-ANCA) <1:20 titer (Neg:<1:20)
== END ==
PROVIDERS: Visit Provider Nurse Practitioner Acute Care
DX: R06.02 Shortness of breath (principal)
CPT/HCPCS: 36415; 86038; 86200; 86225; 86235; 86256; 86431

== ENCOUNTER → 2018-10-21 16:35 | Outpatient (CLI) | payer MEDICARE, OTHER, SELFPAY ==
[2018-10-21 14:51] VITALS: BMI 41.8
[2018-10-21 17:50] LABS: Anion Gap 10 (5-15); BUN 21 mg/dL (7-18); BUN/Creat Ratio 24.9 RATIO (10-20); Chloride 94 mmol/L (98-107); Creatinine, Serum 0.84 mg/dL (0.55-1.02); EST Glomerular Filtration Rate 71 mL/min (>60); Est Glom Filt Rate - Afr Amer 86 mL/min (>60); Glucose 144 mg/dL (74-106); Potassium 3.7 mmol/L (3.5-5.1); Sodium Level 140 mmol/L (136-145)
== END ==
PROVIDERS: Family Provider Internal Medicine; PCP Internal Medicine; Referring Provider Internal Medicine; Visit Provider Internal Medicine
DX: I10 Essential (primary) hypertension (principal)
CPT/HCPCS: 36415; 80048

== ENCOUNTER → 2018-10-26 10:56 | Outpatient (CLI) | payer MEDICARE, OTHER, SELFPAY ==
[2018-10-26 10:22] VITALS: BMI 41.8
[2018-10-26 11:31] LABS: Hematocrit 45.2 % (37-47); Hemoglobin 13.7 g/dl (12.0-15.0); Mean Corp Hgb Conc 30.3 g/gl (32-36); Mean Corpuscular Hgb 28.8 pg (27.0-32.0); Mean Platelet Vol. 12.1 fl (6.2-12.0); Platelet Count 127 K/mm3 (150-450); RBC Distribution Width CV 14.7 % (11.6-14.6); RBC Distribution Width SD 51.2 fl (35.1-43.9); Red Blood Count 4.76 M/mm3 (4.2-5.4); White Blood Count 6.4 K/mm3 (4.4-11.0)
[2018-10-26 11:32] LABS: Scan Indicated on CBC? Y/N NO
[2018-10-26 11:39] LABS: International Normalized Ratio 0.9; Prothrombin Time (Protime)PT. 12.5 SECONDS (11.7-14.9)
[2018-10-26 11:40] LABS: Partial Thromboplast Time 28.1 Seconds (24.1-36.2)
[2018-10-26 12:01] LABS: AST(SGOT) 56 U/L (15-37); Alanine Aminotransfer ALT/SGPT 61 U/L (13-56); Albumin, Serum 3.2 g/dL (3.2-5.0); Alkaline Phosphatase 108 U/L (45-117); Anion Gap 5 (5-15); BUN 20 mg/dL (7-18); BUN/Creat Ratio 23.4 RATIO (10-20); Bilirubin, Direct 0.12 mg/dL (0.00-0.30); Calcium,Total 8.7 mg/dL (8.5-10.1); Chloride 95 mmol/L (98-107); Cholesterol 163 mg/dL (200); Creatinine, Serum 0.85 mg/dL (0.55-1.02); EST Glomerular Filtration Rate 70 mL/min (>60); Est Glom Filt Rate - Afr Amer 85 mL/min (>60); Globulin 3.4 g/dL (2.2-4.2); Glucose 240 mg/dL (74-106); High Density Lipoprotein 33 mg/dL; Potassium 3.9 mmol/L (3.5-5.1); Protein, Total 6.6 g/dL (6.4-8.2); Sodium Level 135 mmol/L (136-145); Triglycerides 271 mg/dL; Very Low Density Lipoprotein 54 mg/dL (5-40)
== END ==
PROVIDERS: Family Provider Internal Medicine; PCP Internal Medicine; Referring Provider Internal Medicine Cardiovascular Disease; Visit Provider Internal Medicine Cardiovascular Disease
DX: I63.9 Cerebral infarction, unspecified (principal); R06.09 Other forms of dyspnea; I10 Essential (primary) hypertension; E78.5 Hyperlipidemia, unspecified
CPT/HCPCS: 36415; 80048; 80061; 80076; 85027; 85610; 85730

== ENCOUNTER 2018-11-03 08:02 | Day surgery (SDC) | payer MEDICARE, OTHER, SELFPAY ==
[2018-10-26 10:18] VITALS: BMI 41.8
[2018-10-26 10:22] VITALS: BMI 41.8
[2018-11-03] VITALS (22 sets, daily range): BP systolic 107–162; BP diastolic 27–100; PULSE 80–92; RESP 15–97; TEMP 36.7–37.1; O2SAT 94–100; BMI 44.2
--- NOTE | 2018-11-03 10:35 | CL.I_ITS ---
Patient Name: BIMAL STOKES Study Date: 11/03/2018 Performing: Jan Wick MD Ht: 59 inches 149.86 cm : 1950 Wt: 218.99 lbs 99.33 kg Age: 67 Gender: female BSA: 1.92 PROCEDURE(S) PERFORMED [id number]/COR/LV FL13-EIC W OR WO PTCA, SINGLE CORONARY ARTERY CLINICAL PROFILE AND CO-MORBIDITIES Indications: Stable Known CAD, Pre-Operative Evaluation Heart Failure: None Stress/Imaging Stress Test w/SPECT MPI: Yes Result: Positive Low Risk Stress Test with SPECT MPI: Positive Low Risk Angina Classification Anginal Classification w/in 2 Weeks: No symptoms CAD Presentations: Other: Dyspnea on exertion Comorbidities/Risk Factors: Hypertension Dyslipidemia Diabetes Mellitus: Diabetes Therapy: Insulin Prior PCI CONCLUSIONS Normal LV size, wall motion,and systolic function Non obstructive coronary arteries Single vessel CAD of the mid RAMUS Successful PTCA/NICOLLE of mid RAMUS with a 2.25 x 12 Promus Synergy, post dilated with a 2.25 x 8 NC Bal loon; 75%-->0%, no dissection. RECOMMENDATIONS Referred for immediate PCI Highly recommend quitting all tobacco products Follow up with primary service provider Risk factor modification ASA Indefinitley Plavix for at least 12 months Routine post interventional care Refer for Outpatient Cardiac Rehab Manual sheath removal per protocol Follow up with Dr. Wick Pt is at low risk for non cardia surgery and may proceed with cataract surgery. Succesful Mynx closure of RFA. DESCRIPTION OF PROCEDURE The patient arrived to the procedure lab. The risks and benefits of the procedure as well as a full d escription of our services here and lack of surgical backup were fully explained to the patient and/o r their significant other prior to the catheterization. The Timeout was completed, verifying the vera ect patient and procedure. The patient's procedural site was prepped and draped in the usual fashion. Local anesthetic was given subcutaneously to right groin region with Lidocaine 2%. Using a modified Seldinger technique, arterial access was obtained via the right femoral artery, a 4Fr sheath was inse rted. Left Coronary Artery selective angiography was performed in multiple views using a 4 Fr. JL5 c atheter. Right Coronary Artery selective angiography was then performed in multiple views using a 4 F r. 3DRC catheter. Left Ventriculography was performed in OJEDA projection using a 4 Fr. Pigtail cathete r. LV to AO pullback pressures were then recordedThe images were reviewed and options discussed. A decision was then made to proceed with an Intervention, IVUS or other adjunct procedure. Arterial sheath was exchanged for a 6 Fr Sheath. EBU 3.75 Guide catheter was inserted and engaged into the LCA. EBU 3.5 Guide catheter was inserted and engaged into the LCA. BMW Guide wire was advan raj to the Ramus. Angiogram performed pre balloon dilatation. Emerge 2.00x12 Balloon catheter was ins erted. PTCA balloon inflated at 6 atms for 10 secs. Angiogram performed post balloon dilatation. Syne rgy 2.25x12 Drug Eluting stent was inserted. NC Emerge 2.25x8 Balloon catheter was inserted. PTCA bal loon inflated at 10 atms for 12 secs. Contrast was injected through the sheath and the Right Iliac an d Femoral artery were assessed for possible closure device. The arterial sheath was pulled and a Myn x closure device was deployed for hemostasis CORONARY ANGIOGRAPHY DOMINANCE: Right Dominant LEFT HEART ASSESSMENT Left Ventricular Ejection Fraction: by LV Gram 75 % Normal Left Ventricular systolic function LVEDP: 11 mmHg Normal LV wall motion LEFT MAIN: Angiographically normal LEFT ANTERIOR DECENDING ARTERY: No significant disease noted DIAGONAL 1: Mid - 50 % Stenosis CIRCUMFLEX ARTERY: Mild luminal irregularities less than 30% RAMUS: 75 % Stenosis RIGHT CORONARY ARTERY: PROX RCA: Instent restenosis 10 % MID RCA: 50 % Stenosis INTERVENTION INFORMATION LESION SITE: Ramus (Mid) Lesion Complexity: Non-High/Non-C, lesion at bifurcation: Yes, thrombus present: No, lesion length: 1 2 mm, culprit lesion: Yes Pre Stenosis: 75 % Pre intervention RYDER flow: 3 PROCEDURE: Drug Eluting Stent with pre and post dilatation Post Stenosis: 0 % Post intervention RYDER flow: 3 COMPLICATIONS No Complications PROCEDURE MEDICATIONS Oxygen: 2 L/min via nasal cannula Heparin 6000 unit(s) IV 11/03/2018 09:51:37 Nitro 200 mcg IC 11/03/2018 10:08:38 IV Bolus: .9 NaCl 250 ml total 11/03/2018 09:53:36 SUMMARY OF HEMODYNAMIC DATA Time AIR REST ECG 08:24:25 AO 139/77 (102) SA 09:40:04 LV 157/-10, 11 09:46:42 LV 160/-15, 11 09:46:49 LVp 149/-5, 14 09:48:00 AOp 154/57 (94) 09:48:05 Signed By Jan Wick MD On 11/03/2018 10:34:32 AM Jan Wick MD
--- NOTE | 2018-11-03 10:41 | EKG12_ITS ---
Test Reason : POST PCI Blood Pressure : / mmHG Vent. Rate : 075 BPM Atrial Rate : 075 BPM P-R Int : 168 ms QRS Dur : 074 ms QT Int : 370 ms P-R-T Axes : 060 094 077 degrees QTc Int : 413 ms Normal sinus rhythm Nonspecific ST abnormality Abnormal ECG No previous ECGs available Confirmed by YESENIA WALTERS, MARY ANNE ([id number]), dictionary editor LANCE BOO ([id number]) on 11/05/2018 9:31:24 AM Referred By: Jan Wick Confirmed By:MARY ANNE PATTERSON MD
[2018-11-03] MEDS: 0.9% Normal Saline 1,000 ML 150 ML IV (10:45)
--- NOTE | 2018-11-03 11:10 | PCM.DC.CCA ---
Discharge Diet: Low fat/ Low Cholesterol Discharge Activity: Return to Normal Activity May shower in (days): 1 May resume sexual activity in: 10-14 days Lifting Restrictions: Do not lift anything greater than 10 pounds for 3 days Call your doctor if your incision/area has: Continuous Slow Oozing, Sudden Increased Bleeding, Increased Pain/ Swelling, Increased Redness, Foul Smelling Discharge, Swelling at the incision site Call your doctor if you observe: Fever of 101 or Higher, Shortness of breath, Chest pain Remove Dressing in (days):: 1 Cleanse incision/area with: Soap & Water Additional Instructions: You will continue with aspirin therapy. You will continue Plavix for at least one year. If anyone asks you to stop Plavix, please call the [facility] first at [phone]. You are scheduled for an office appointment with Dr. Wick on 11/19/2018 at 1:45 PM. If you have any questions or concerns, please call the [facility] Office. Allergies/Adverse Reactions: Allergies ciprofloxacin Allergy (Severe, Verified 10/26/18 09:03) Hives clindamycin Allergy (Severe, Verified 10/26/18 09:03) Hives formoterol [From Dulera] Allergy (Severe, Verified 10/26/18 09:03) Unknown mometasone furoate [From Dulera] Allergy (Severe, Verified 10/26/18 09:03) Unknown Penicillins Allergy (Severe, Verified 10/26/18 09:03) Hives Sulfa (Sulfonamide Antibiotics) Allergy (Severe, Verified 10/26/18 09:03) Hives acetaminophen [From Percocet] Allergy (Unknown, Verified 10/26/18 09:03) Rash codeine Allergy (Unknown, Verified 10/26/18 09:03) Unknown fluticasone [From Advair Diskus] Allergy (Unknown, Verified 10/26/18 09:03) Unknown gemfibrozil [From Lopid] Allergy (Unknown, Verified 10/26/18 09:03) Unknown metformin Allergy (Unknown, Verified 10/26/18 09:03) Unknown oxycodone [From Percocet] Allergy (Unknown, Verified 10/26/18 09:03) Rash salmeterol [From Advair Diskus] Allergy (Unknown, Verified 10/26/18 09:03) Unknown Medications to take at Discharge albuterol sulfate HFA 90 mcg/actuation aerosol inhaler 2 puff INHALATION Q6H PRN 07/21/18 amitriptyline 25 mg tablet 25 mg PO QHS 07/21/18 budesonide-formoterol HFA 80 mcg-4.5 mcg/actuation aerosol inhaler 2 puff INHALATION BID 07/21/18 calcium citrate 200 mg (950 mg) tablet 400 mg PO QHS tab 07/21/18 clopidogrel 75 mg tablet 75 mg PO DAILY 07/21/18 cyclobenzaprine 5 mg tablet 5 mg PO TID PRN PRN 07/21/18 fenofibrate 54 mg tablet 108 mg PO DAILY tab 07/21/18 gabapentin 800 mg tablet 800 mg PO TID tab 07/21/18 losartan 100 mg tablet 100 mg PO DAILY@1500 07/21/18 montelukast 10 mg tablet 10 mg PO QHS 07/21/18 omega-3 fatty acids 500 mg capsule 500 mg PO BID cap 07/21/18 omeprazole 40 mg capsule,delayed release 40 mg PO DAILY 07/21/18 simvastatin 40 mg tablet 40 mg PO QHS 07/21/18 Fluorometholone [Fml] 1 drp OP TID 09/29/18 Magnesium Oxide 400 mg PO QHS 09/29/18 Multivitamin with Minerals [Multiple Vitamin] 1 tab PO DAILY 09/29/18 Albuterol Aerosols [Ventolin Aerosols] 2.5 mg INHALATION Q6H PRN PRN #120 vial 10/01/18 nitroglycerin 0.3 mg sublingual tablet 0.3 mg SUBLINGUAL Q5-15M PRN 10/21/18 aspirin 81 mg tablet,delayed release 81 mg PO DAILY 10/26/18 atenolol 25 mg tablet 25 mg PO DAILY tab 10/26/18 dicyclomine 20 mg tablet 20 mg PO TID #90 tab 10/26/18 furosemide 40 mg tablet 40 mg PO DAILY #30 tab 10/26/18 insulin NPH isophane U- 100 human 100 unit/mL subcutaneous suspension 44 unit SC .COMPLEX ml 10/29/18 insulin U- 100 regular human 100 unit/mL injection solution 30 unit SC TID ml 10/29/18 Primary Care Physician: Lucila Asencio MD [Primary Care Provider] - Test Results: Test results from this visit will be discussed in further detail at your follow-up appointment, if applicable. Please Follow Up With: Dr. Wick - [facility] Office When: 11/19/2018 at 1:45 Proposed Discharge Date: 11/04/18 Cardiac Rehabilitation Info Cardiac Rehabilitation Program Information: Cardiac Rehabilitation is important for patients like you who are recovering from a heart problem. Cardiac rehabilitation programs are recognized as integral to the continued care of the patient with coronary heart disease. The cardiac rehabilitation program is designed to optimize a patient's physical, psychological, and social functioning. Health healthcare project manager work in cardiac rehabilitation programs and assist you with getting the treatments you need to get stronger and healthier - like exercise, healthy eating habits, and medications. Cardiac rehabilitation has been show to help people with heart problems live longer and have better life enjoyment than people who do not go to cardiac rehabilitation. Please contact the Cardiac Rehabilitation Program at [facility] at in two weeks if you have not heard from them.
--- NOTE | 2018-11-03 11:16 | DCINST_ITS ---
Discharge Diet: Low fat/ Low Cholesterol Discharge Activity: Return to Normal Activity May shower in (days): 1 May resume sexual activity in: 10-14 days Lifting Restrictions: Do not lift anything greater than 10 pounds for 3 days Call your doctor if your incision/area has: Continuous Slow Oozing, Sudden Increased Bleeding, Increased Pain/ Swelling, Increased Redness, Foul Smelling Discharge, Swelling at the incision site Call your doctor if you observe: Fever of 101 or Higher, Shortness of breath, Chest pain Remove Dressing in (days):: 1 Cleanse incision/area with: Soap & Water Additional Instructions: You will continue with aspirin therapy. You will continue Plavix for at least one year. If anyone asks you to stop Plavix, please call the [facility] first at [phone]. You are scheduled for an office appointment with Dr. Wick on 11/19/2018 at 1:45 PM. If you have any questions or concerns, please call the [facility] Office. Allergies/Adverse Reactions: Allergies ciprofloxacin Allergy (Severe, Verified 10/26/18 09:03) Hives clindamycin Allergy (Severe, Verified 10/26/18 09:03) Hives formoterol [From Dulera] Allergy (Severe, Verified 10/26/18 09:03) Unknown mometasone furoate [From Dulera] Allergy (Severe, Verified 10/26/18 09:03) Unknown Penicillins Allergy (Severe, Verified 10/26/18 09:03) Hives Sulfa (Sulfonamide Antibiotics) Allergy (Severe, Verified 10/26/18 09:03) Hives acetaminophen [From Percocet] Allergy (Unknown, Verified 10/26/18 09:03) Rash codeine Allergy (Unknown, Verified 10/26/18 09:03) Unknown fluticasone [From Advair Diskus] Allergy (Unknown, Verified 10/26/18 09:03) Unknown gemfibrozil [From Lopid] Allergy (Unknown, Verified 10/26/18 09:03) Unknown metformin Allergy (Unknown, Verified 10/26/18 09:03) Unknown oxycodone [From Percocet] Allergy (Unknown, Verified 10/26/18 09:03) Rash salmeterol [From Advair Diskus] Allergy (Unknown, Verified 10/26/18 09:03) Unknown Medications to take at Discharge albuterol sulfate HFA 90 mcg/actuation aerosol inhaler 2 puff INHALATION Q6H PRN 07/21/18 amitriptyline 25 mg tablet 25 mg PO QHS 07/21/18 budesonide-formoterol HFA 80 mcg-4.5 mcg/actuation aerosol inhaler 2 puff INHALATION BID 07/21/18 calcium citrate 200 mg (950 mg) tablet 400 mg PO QHS tab 07/21/18 clopidogrel 75 mg tablet 75 mg PO DAILY 07/21/18 cyclobenzaprine 5 mg tablet 5 mg PO TID PRN PRN 07/21/18 fenofibrate 54 mg tablet 108 mg PO DAILY tab 07/21/18 gabapentin 800 mg tablet 800 mg PO TID tab 07/21/18 losartan 100 mg tablet 100 mg PO DAILY@1500 07/21/18 montelukast 10 mg tablet 10 mg PO QHS 07/21/18 omega-3 fatty acids 500 mg capsule 500 mg PO BID cap 07/21/18 omeprazole 40 mg capsule,delayed release 40 mg PO DAILY 07/21/18 simvastatin 40 mg tablet 40 mg PO QHS 07/21/18 Fluorometholone [Fml] 1 drp OP TID 09/29/18 Magnesium Oxide 400 mg PO QHS 09/29/18 Multivitamin with Minerals [Multiple Vitamin] 1 tab PO DAILY 09/29/18 Albuterol Aerosols [Ventolin Aerosols] 2.5 mg INHALATION Q6H PRN PRN #120 vial 10/01/18 nitroglycerin 0.3 mg sublingual tablet 0.3 mg SUBLINGUAL Q5-15M PRN 10/21/18 aspirin 81 mg tablet,delayed release 81 mg PO DAILY 10/26/18 atenolol 25 mg tablet 25 mg PO DAILY tab 10/26/18 dicyclomine 20 mg tablet 20 mg PO TID #90 tab 10/26/18 furosemide 40 mg tablet 40 mg PO DAILY #30 tab 10/26/18 insulin NPH isophane U- 100 human 100 unit/mL subcutaneous suspension 44 unit SC .COMPLEX ml 10/29/18 insulin U- 100 regular human 100 unit/mL injection solution 30 unit SC TID ml 10/29/18 Primary Care Physician: Lucila Asencio MD [Primary Care Provider] - Test Results: Test results from this visit will be discussed in further detail at your follow- up appointment, if applicable. Please Follow Up With: Dr. Wick - [facility] Office When: 11/19/2018 at 1:45 Proposed Discharge Date: 11/04/18 Cardiac Rehabilitation Info Cardiac Rehabilitation Program Information: Cardiac Rehabilitation is important for patients like you who are recovering from a heart problem. Cardiac rehabilitation programs are recognized as integral to the continued care of the patient with coronary heart disease. The cardiac rehabilitation program is designed to optimize a patient's physical, psychological, and social functioning. Health rn acute care work in cardiac rehabilitation programs and assist you with getting the treatments you need to get stronger and healthier - like exercise, healthy eating habits, and medications. Cardiac rehabilitation has been show to help people with heart problems live longer and have better life enjoyment than people who do not go to cardiac rehabilitation. Please contact the Cardiac Rehabilitation Program at [facility] at in two weeks if you have not heard from them.
[2018-11-03 11:21] LABS: Bedside Glucose 309 mg/dL (70-110)
[2018-11-03 12:00] LABS: ACT Activated Clotting Time 164 sec (74-137)
--- NOTE | 2018-11-03 12:59 | CRPHASE1 ---
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 PCP:: Lucila Asencio Phase II:: Yes Risk Factors/Lifestyle Smoking Status: Former smoker Hx Hypertension: Yes Hx Diabetes Mellitus Type 2: Yes Hx Metabolic Disorders: Yes Hx Dyslipidemia: Yes Hx Obesity: Yes Height: 4 ft 11 in Weight:: 219 lb BMI: 44.2 Family History: Family History (Last Reviewed 10/21/18 @ 14:30 by Terra Ariza) Mother Asthma Arthritis Hypertension Grandmother Cancer Brother Diabetes Heart disease Hypertension Father Heart disease Hypertension Past Cardiac Illness: CHF, Coronary Artery Disease, Previous PCI w/Stent Phase I Education Given On:: [place], Nutrition, Antiplatelet medication, CHF, Smoking cessation, Diabetes - Type I, Diabetes - Type II Issues Affecting Care:: None Medical/Surgical History CAD:: Yes Valve Disease/Replacement:: No Pulmonary:: Yes Asthma:: Yes Diabetes:: Yes Hypertension:: Yes Dyslipidemia:: Yes Arthritis:: Yes GI:: No GERD:: No Cancer:: Yes Renal:: No Thyroid:: No Anxiety:: Yes CABG: No PTCA:: Yes ICD:: No Pacemaker:: No Discharge/Home/Social Eval Discharge Disposition: Home Marital Status:
[2018-11-03] MEDS: Insulin Lispro 100 UNIT/ML INSULN.PEN 30 UNIT SC ×2 (13:04→17:06)
--- NOTE | 2018-11-03 13:04 | CRPH1.INSTRU ---
General Education CAD and cardiac anatomy and function:: Not instructed Explanation of diagnoses and procedures:: Not instructed Sign/Symptoms of IN:: Not instructed Antiplatelet therapy: Needs reinforcement Proper use of NTG-SL: Family communicates acknowledgment Emergency procedures and activation of EMS: Not instructed Compliance of all prescribed medications: Needs reinforcement Smoking Patient Nicotine/Smoking Risk Factors Are:: Cigarettes - PT STATES SHE QUIT SMOKING 1 MONTH AGO Recommendations Include:: Previous smoker; encourage continued cessation Nicotine/Smoking Response Code:: Needs reinforcement Dyslipidemia Dyslipidemia Response Code:: Not instructed Overweight/Obesity Patient Overweight/Obesity Risk Factors Are:: Obesity - > or = 30 Overweight/Obesity:: Not instructed Hypertension Hypertension:: Not instructed Heart Disease Patient Heart Disease Risk Factors Are:: Previous cardiac event Heart Disease Response Code:: Not instructed Diabetes Patient Diabetes Risk Factors Are:: Elevated blood sugars Diabetes:: Not instructed Metabolic Syndrome Patient Metabolic Syndrome Risk Factors Are [3 of 5]:: Fasting blood sugar > 100 mg/dL, Waist circumference > 35 [female] or 40 [male], Hypertension Metabolic Syndrome Response Code:: Not instructed Sedentary Sedentary Response Code:: Not instructed Stress Stress Response Code:: Not instructed
[2018-11-03] MEDS: Insulin Lispro 100 UNIT/ML INSULN.PEN SC ×3 (13:05→21:03)
[2018-11-03] MEDS: Albuterol 2.5 MG/3 ML VIAL.NEB. INHALATION ×2 (13:40→18:46)
[2018-11-03] MEDS: CYCLOBENZAPRINE HCL 5 MG TABLET PO (15:52)
[2018-11-03] MEDS: CLARIFY ORDER NOTE (15:53)
[2018-11-03 16:56] LABS: Bedside Glucose 254 mg/dL (70-110)
[2018-11-03] MEDS: Losartan Potassium 100 MG Tablet PO (17:05)
[2018-11-03] MEDS: Dicyclomine 10 MG Capsule 20 MG PO (17:05)
[2018-11-03] MEDS: Gabapentin 800 MG Tablet PO (17:07)
[2018-11-03] MEDS: Insulin NPH Human 100 UNITS/ML PEN 48 UNITS SC (17:07)
[2018-11-03] MEDS: Budesonide Respules 0.5 MG/2 ML AMPUL.NEB. INHALATION (18:46)
[2018-11-03] MEDS: Amitriptyline 25 MG Tablet PO (21:01)
[2018-11-03] MEDS: Atorvastatin Calcium 20 MG Tablet PO (21:01)
[2018-11-03] MEDS: Montelukast 10 MG Tablet PO (21:02)
[2018-11-03] MEDS: Magnesium Oxide 400 MG Tablet PO (21:02)
[2018-11-03 21:25] LABS: Bedside Glucose 278 mg/dL (70-110)
[2018-11-04] VITALS (10 sets, daily range): BP systolic 105–156; BP diastolic 27–98; PULSE 85–100; RESP 17–24; TEMP 36.8; O2SAT 92–100
[2018-11-04 04:08] LABS: Hematocrit 40.2 % (37-47); Hemoglobin 12.1 g/dl (12.0-15.0); Mean Corp Hgb Conc 30.1 g/gl (32-36); Mean Corpuscular Hgb 28.6 pg (27.0-32.0); Mean Platelet Vol. 11.6 fl (6.2-12.0); Platelet Count 164 K/mm3 (150-450); RBC Distribution Width CV 15.3 % (11.6-14.6); RBC Distribution Width SD 51.5 fl (35.1-43.9); Red Blood Count 4.23 M/mm3 (4.2-5.4); White Blood Count 7.2 K/mm3 (4.4-11.0)
[2018-11-04 04:09] LABS: Scan Indicated on CBC? Y/N NO
[2018-11-04 04:22] LABS: Anion Gap 8 (5-15); BUN 18 mg/dL (7-18); BUN/Creat Ratio 20.9 RATIO (10-20); Calcium,Total 9.1 mg/dL (8.5-10.1); Chloride 96 mmol/L (98-107); Cholesterol 161 mg/dL (200); Creatinine, Serum 0.86 mg/dL (0.55-1.02); EST Glomerular Filtration Rate 69 mL/min (>60); Est Glom Filt Rate - Afr Amer 84 mL/min (>60); Estimated Creatinine Clearance 98.34 ml/min; Glucose 281 mg/dL (74-106); High Density Lipoprotein 24 mg/dL; Potassium 4.3 mmol/L (3.5-5.1); Sodium Level 138 mmol/L (136-145); Triglycerides 341 mg/dL; Very Low Density Lipoprotein 68 mg/dL (5-40)
[2018-11-04] MEDS: Albuterol 2.5 MG/3 ML VIAL.NEB. INHALATION (06:47)
[2018-11-04] MEDS: Budesonide Respules 0.5 MG/2 ML AMPUL.NEB. INHALATION (06:47)
--- NOTE | 2018-11-04 08:21 | PCM.PN.CARD ---
Subjectve: Patient doing very well this morning, no 24-hour events. No chest pain. Right groin is clean/dry/intact without evidence of thrills, bruits or hematoma. EKG shows normal sinus rhythm, no acute changes. Telemetry negative. Hemoglobin and creatinine are within nominal limits. Objective: Vital Signs Temp Pulse Resp BP Pulse Ox 98.2 F 94 20 H 148/60 H 100 11/04/18 00:00 11/04/18 06:47 11/04/18 06:47 11/04/18 06:00 11/04/18 06:47 Oxygen Flow Rate (L/min) 3 Oxygen Delivery Method Nasal Cannula Weight: 219 lb 5.759 oz Body Mass Index (BMI) 44.2 Intake and Output for Last 24 Hours 11/02/18 11/03/18 11/04/18 23:59 23:59 23:59 Intake Total 1453 / 1453 720 / 720 Output Total 80 / 80 Balance 1453 / 1453 640 / 640 General: Awake, Alert, Oriented x 3 HEENT: PERRL, EOMI, Sclera Non Icteric Neck: Supple, Good ROM, No Lymph Node Enlargement Lungs: Clear to auscultation Cardiovascular: Regular Rhythm, Normal S1, Normal S2, No Murmurs, No Rubs, No Gallops Vascular: No Carotid Bruits, Normal Femoral Pulses, Normal Radial Pulses, Normal Dorsalis Pedal Pulse, Normal Posterior Tibial Pulses Abdomen: Bowel Sounds Present, Soft, Non Tender, No HSM, No Organomegaly Extremities: No Cyanosis, No Clubbing, No edema Neurological: No Focal Motor or Sensory Deficit 11/04/18 04:00: WBC 7.2, RBC 4.23, Hgb 12.1, Hct 40.2, MCV 95.0, MCH 28.6, MCHC 30.1 L, RDW 15.3 H, RDW Differential 51.5 H, Plt Count 164, MPV 11.6 11/04/18 04:00: Sodium 138, Potassium 4.3, Chloride 96 L, Carbon Dioxide 34.0 H, Anion Gap 8, BUN 18, Creatinine 0.86, Est GFR (MDRD) Af Amer 84, Est GFR (MDRD) Non-Af 69, BUN/Creatinine Ratio 20.9 H, Glucose 281 H, Calcium 9.1, Triglycerides 341 H, Cholesterol 161, LDL Cholesterol 69, VLDL Cholesterol 68 H, HDL Cholesterol 24 L Rhythm: EKG: ECHO: Stress Test: Cardiac Cath: PCI: CT Surgery: Holter monitor: EPS: PPM: CXR: Chest CT Scan: Medical Necessity - Tobacco Use Smoking Status: Former smoker Tobacco Use: Non-smoker Assessment/Plan 1. Coronary artery disease: Patient had an abnormal stress test, and underwent successful angioplasty and drug-eluting stenting to the ramus intermedius with an excellent result. The patient will continue on baby aspirin, Plavix, and antihypertensive medications. She may proceed with cataract surgery providing that she continues baby aspirin and Plavix through the surgery given her new stent. Arrangements were made for the patient to see us in the outpatient setting, followed by cardiac rehab once her groin is healed. 2. Hyperlipidemia: Continue Lipitor therapy. Repeat lipid profile after cardiac rehab. 3. Patient may be discharged home and follow-up with Dr. Wick going forward. Code Visit Inpatient E&M: 32197 Subs Hosp L2
[2018-11-04] MEDS: Atenolol 25 MG Tablet PO (08:22)
[2018-11-04] MEDS: Dicyclomine 10 MG Capsule 20 MG PO (08:22)
[2018-11-04] MEDS: Pantoprazole Sodium 40 MG Tablet PO (08:22)
[2018-11-04] MEDS: Aspirin E.C. 81 MG Tablet PO (08:22)
[2018-11-04] MEDS: Furosemide 40 MG Tablet PO (08:23)
[2018-11-04] MEDS: Clopidogrel Bisulfate 75 MG Tablet PO (08:23)
[2018-11-04] MEDS: Fenofibrate 48 MG Tablet 96 MG PO (08:23)
[2018-11-04] MEDS: Gabapentin 800 MG Tablet PO (08:23)
[2018-11-04] MEDS: Insulin Lispro 100 UNIT/ML INSULN.PEN SC (08:24)
[2018-11-04] MEDS: Multivitamins,Ther W-Minerals Tablet 1 TABLET PO (08:24)
[2018-11-04] MEDS: Insulin NPH Human 100 UNITS/ML PEN 44 UNITS SC (08:25)
[2018-11-04] MEDS: Insulin Lispro 100 UNIT/ML INSULN.PEN 30 UNIT SC (08:25)
[2018-11-04 08:36] LABS: Bedside Glucose 344 mg/dL (70-110)
--- NOTE | 2018-11-04 10:00 | EKG12_ITS ---
Test Reason : AM EKG Blood Pressure : / mmHG Vent. Rate : 081 BPM Atrial Rate : 081 BPM P-R Int : 158 ms QRS Dur : 084 ms QT Int : 368 ms P-R-T Axes : 026 078 042 degrees QTc Int : 427 ms Normal sinus rhythm Normal ECG When compared with ECG of 03-NOV-2018 10:54, MANUAL COMPARISON REQUIRED, DATA IS UNCONFIRMED Confirmed by YESENIA WALTERS, MARY ANNE ([id number]), visual effects editor CORAZON MORAN ([id number]) on 11/15/2018 5:33:47 PM Referred By: Jan Wick Confirmed By:MARY ANNE PATTERSON MD
== END 2018-11-04 10:15 | disposition home or self-care (01) ==
LOC: CLSP 08:03 → ICU 10:19
PROVIDERS: Family Provider Internal Medicine; PCP Internal Medicine; Referring Provider Internal Medicine Cardiovascular Disease; Visit Provider Internal Medicine Cardiovascular Disease
DX: I25.10 Atherosclerotic heart disease of native coronary artery without angina pectoris (principal); R06.00 Dyspnea, unspecified; I27.21 Secondary pulmonary arterial hypertension; E66.01 Morbid (severe) obesity due to excess calories; E11.9 Type 2 diabetes mellitus without complications; E78.5 Hyperlipidemia, unspecified; Z68.41 Body mass index [BMI] 40.0-44.9, adult; Z87.891 Personal history of nicotine dependence; Z87.440 Personal history of urinary (tract) infections; Z95.5 Presence of coronary angioplasty implant and graft; Z79.51 Long term (current) use of inhaled steroids; Z79.899 Other long term (current) drug therapy
CPT/HCPCS: 80048; 80061; 82962; 85027; 85347; 92928; 93005; 93458; 94640; 97802; C1760; J7030; J7040; C1725; C1769; C1874; C1887; C9600; Q9967

== ENCOUNTER → 2018-11-11 22:44 | Outpatient (CLI) | payer MEDICARE, OTHER, SELFPAY ==
[2018-10-18 09:36] VITALS: BMI 41.8
[2018-11-03 11:00] VITALS: BMI 44.2
[2018-11-03 13:03] VITALS: BMI 44.2
== END ==
PROVIDERS: Family Provider Internal Medicine; PCP Internal Medicine; Referring Provider Nurse Practitioner Acute Care; Visit Provider Nurse Practitioner Acute Care
DX: G47.33 Obstructive sleep apnea (adult) (pediatric) (principal)
CPT/HCPCS: 95811

== ENCOUNTER → 2018-11-18 10:58 | Outpatient (CLI) | payer MEDICARE, OTHER, SELFPAY ==
[2018-11-03 13:03] VITALS: BMI 44.2
[2018-11-18 10:10] VITALS: BMI 44.2
[2018-11-18 11:03] LABS: Bacteria 0 SEEN /hpf (None Seen); Mucous, Urine 0 SEEN /hpf (<or=2+); Red Blood Cells-Urine 0 SEEN /hpf (0-5)
[2018-11-18 12:56] LABS: Color, Urine Yellow (Yellow); Glucose, Dipstick Normal (Normal); Ketone-Dipstick Negative (Negative); Leukocyte Esterase-Dipstick 25 /ul (Negative); Nitrite-Dipstick Negative (Negative); Occult Blood-Urine Negative /ul (Negative); Protein-Dipstick Negative (Negative); Urine Bilirubin Dipstick Negative (Negative); Urine Clarity Clear (Clear); Urine Urobilinogen Normal (Normal); Urine pH 6.5 (5.0 - 8.0)
[2018-11-18 13:04] LABS: Squamous Epithelial Cells - UA 0-5 SEEN /hpf (5-10); White Blood Cells 0-5 SEEN /hpf (0-5)
[2018-11-18 13:13] LABS: Microalbumin,Random Urine 7.1 mg/L (NO RANGE EST.)
== END ==
PROVIDERS: Nurse Practitioner Family; Family Provider Internal Medicine; PCP Internal Medicine; Visit Provider Nurse Practitioner
DX: E11.9 Type 2 diabetes mellitus without complications (principal); R30.0 Dysuria
CPT/HCPCS: 36415; 81001; 82043; 82570; 83036; 87086; 87088; 87186

== ENCOUNTER → 2018-11-23 08:46 | Outpatient (CLI) | payer MEDICARE, OTHER, SELFPAY ==
[2018-10-18 09:36] VITALS: BMI 41.8
[2018-11-03 13:03] VITALS: BMI 44.2
[2018-11-18 10:10] VITALS: BMI 44.2
--- NOTE | 2018-11-23 17:27 | PFT ---
INTRODUCTION: The patient is a 67-year-old female that presents for pulmonary function studies secondary to a diagnosis of shortness of breath. Respiratory therapy reports good patient effort. Bronchodilators were used during testing. INTERPRETATION: Forced expiration spirometry demonstrates the presence of a severe large airways obstructive ventilatory defect. Although not considered significant by ATS criteria, the patient did have a bronchodilator response. Spirograms are of good quality and do not plateau. Body plethysmography was performed and reveals an elevated RV to 181% of predicted, indicative of underlying air trapping. Diffusing capacity by single breath CO is reduced at 48% of predicted. IMPRESSION: These pulmonary function studies demonstrate the presence of a severe large airways obstructive ventilatory defect with associated air trapping and reduction in diffusing capacity. Although not considered significant by ATS criteria, the patient did have a demonstratable bronchodilator response.
== END ==
PROVIDERS: Family Provider Internal Medicine; PCP Internal Medicine; Referring Provider Nurse Practitioner Acute Care; Visit Provider Nurse Practitioner Acute Care
DX: R06.02 Shortness of breath (principal)
CPT/HCPCS: 94060; 94726; 94729

== ENCOUNTER → 2018-11-24 10:57 | Outpatient (CLI) | payer MEDICARE, OTHER, SELFPAY ==
[2018-10-18 09:36] VITALS: BMI 41.8
[2018-11-03 13:03] VITALS: BMI 44.2
[2018-11-18 10:10] VITALS: BMI 44.2
[2018-11-24 11:00] VITALS: PULSE 73; PULSE 78; PULSE 82; PULSE 84; PULSE 87; PULSE 88; PULSE 91; O2SAT 87; O2SAT 88; O2SAT 91; O2SAT 92; O2SAT 93; O2SAT 95
--- NOTE | 2018-11-24 11:52 | CPS ---
Patient arrived on 2L continuous O2. O2 turned off and RA Spo2 was 87%. 2L applied and walk test started on 2L. At the 5min inocente the patient dropped to 89% and O2 turned up to 3L for remainder of test.
--- NOTE | 2018-11-26 11:32 | PCM.PSN.6M ---
PSN 6 Minute Walk Test - 6 Minute Walk Test 6 Minute Walk Test: 6 Minute Walk Test PSN:6-Minute Walk Test Start: 11/24/18 11:49 Freq: Status: Active Protocol: RESP.6MINW Document 11/24/18 11:00 REYNA (Rec: 11/24/18 11:56 JLA [id number]) 6 Minute Walk Test Date Performed 11/24/18 Time Performed 11:00 Height 4 ft 11 in Weight: 219 lb Weight in Pounds 219.[address]: Reji Chauhan Assistive device used: None Pre-test Oxygen Delivery Method Room Air Pulse Ox (%) 87 Pulse Rate (60-100 beats/min) 73 Dyspnea Alfredo Scale (0-10) 1 Exertion Alfredo Scale (6-20) 6 1st minute Oxygen Flow Rate (L/min) (L/min) 2 Oxygen Delivery Method Nasal Cannula Pulse Ox (%) 93 Pulse Rate (60-100 beats/min) 82 2nd minute Oxygen Flow Rate (L/min) (L/min) 2 Oxygen Delivery Method Nasal Cannula Pulse Ox (%) 92 Pulse Rate (60-100 beats/min) 84 3rd minute Oxygen Flow Rate (L/min) (L/min) 2 Oxygen Delivery Method Nasal Cannula Pulse Ox (%) 93 Pulse Rate (60-100 beats/min) 88 4th minute Oxygen Flow Rate (L/min) (L/min) 2 Oxygen Delivery Method Nasal Cannula Pulse Ox (%) 91 Pulse Rate (60-100 beats/min) 87 5th minute Oxygen Flow Rate (L/min) (L/min) 2 Oxygen Delivery Method Nasal Cannula Pulse Ox (%) 88 Pulse Rate (60-100 beats/min) 91 6th minute Oxygen Flow Rate (L/min) (L/min) 3 Oxygen Delivery Method Nasal Cannula Pulse Ox (%) 92 Pulse Rate (60-100 beats/min) 91 Dyspnea Alfredo Scale (0-10) 4 Exertion Alfredo Scale (6-20) 13 Post-test Oxygen Flow Rate (L/min) (L/min) 3 Oxygen Delivery Method Nasal Cannula Pulse Ox (%) 95 Pulse Rate (60-100 beats/min) 78 Full Laps Walked 4 Partial Lap, Number of Tiles Walked 30 Total Distance Walked (ft) 266 11/24/18 11:52 Cardiopulmonary Services by Aberegg,Shirley L Patient arrived on 2L continuous O2. O2 turned off and RA Spo2 was 87%. 2L applied and walk test started on 2L. At the 5min inocente the patient dropped to 89% and O2 turned up to 3L for remainder of test. Initialized on 11/24/18 11:52 - END OF NOTE - Interpretation Interpretation: The patient ambulated 266 feet over the course of 6 minutes without assistive devices or breaks. Pretesting oxygen saturation on room air was noted to be 87%. 2 L/min of oxygen was applied and the patient began her test. With ambulation, the michael oxygen saturation was 88% at minute 5 of testing. The supplemental flow rate was increased to 3 L/min and the patient was able to complete the remainder of the test while maintaining appropriate oxygen saturations. - Recommendations Recommendations: 2 L/min of supplemental oxygen should be utilized at rest. 3 L/min should be utilized with exertion.
--- NOTE | 2018-11-26 11:35 | WT_ITS ---
PSN 6 Minute Walk Test - 6 Minute Walk Test 6 Minute Walk Test: 6 Minute Walk Test PSN:6-Minute Walk Test Start: 11/24/18 11:49 Freq: Status: Active Protocol: RESP.6MINW Document 11/24/18 11:00 REYNA (Rec: 11/24/18 11:56 JLA [id number]) 6 Minute Walk Test Date Performed 11/24/18 Time Performed 11:00 Height 4 ft 11 in Weight: 219 lb Weight in Pounds 219.[address]: Reji Chauhan Assistive device used: None Pre-test Oxygen Delivery Method Room Air Pulse Ox (%) 87 Pulse Rate (60-100 beats/min) 73 Dyspnea Alfredo Scale (0-10) 1 Exertion Alfredo Scale (6-20) 6 1st minute Oxygen Flow Rate (L/min) (L/min) 2 Oxygen Delivery Method Nasal Cannula Pulse Ox (%) 93 Pulse Rate (60-100 beats/min) 82 2nd minute Oxygen Flow Rate (L/min) (L/min) 2 Oxygen Delivery Method Nasal Cannula Pulse Ox (%) 92 Pulse Rate (60-100 beats/min) 84 3rd minute Oxygen Flow Rate (L/min) (L/min) 2 Oxygen Delivery Method Nasal Cannula Pulse Ox (%) 93 Pulse Rate (60-100 beats/min) 88 4th minute Oxygen Flow Rate (L/min) (L/min) 2 Oxygen Delivery Method Nasal Cannula Pulse Ox (%) 91 Pulse Rate (60-100 beats/min) 87 5th minute Oxygen Flow Rate (L/min) (L/min) 2 Oxygen Delivery Method Nasal Cannula Pulse Ox (%) 88 Pulse Rate (60-100 beats/min) 91 6th minute Oxygen Flow Rate (L/min) (L/min) 3 Oxygen Delivery Method Nasal Cannula Pulse Ox (%) 92 Pulse Rate (60-100 beats/min) 91 Dyspnea Alfredo Scale (0-10) 4 Exertion Alfredo Scale (6-20) 13 Post-test Oxygen Flow Rate (L/min) (L/min) 3 Oxygen Delivery Method Nasal Cannula Pulse Ox (%) 95 Pulse Rate (60-100 beats/min) 78 Full Laps Walked 4 Partial Lap, Number of Tiles Walked 30 Total Distance Walked (ft) 266 11/24/18 11:52 Cardiopulmonary Services by Aberegg,Shirley L Patient arrived on 2L continuous O2. O2 turned off and RA Spo2 was 87%. 2L applied and walk test started on 2L. At the 5min inocente the patient dropped to 89% and O2 turned up to 3L for remainder of test. Initialized on 11/24/18 11:52 - END OF NOTE - Interpretation Interpretation: The patient ambulated 266 feet over the course of 6 minutes without assistive de vices or breaks. Pretesting oxygen saturation on room air was noted to be 87%. 2 L/min of oxygen was applied and the patient began her test. With ambulation, the michael oxygen saturation was 88% at minute 5 of testing. The supplemental flow rate was increased to 3 L/min and the patient was able to complete the remainder of the test while maintaining appropriate oxygen saturations. - Recommendations Recommendations: 2 L/min of supplemental oxygen should be utilized at rest. 3 L/min should be utilized with exertion.
== END ==
PROVIDERS: Family Provider Internal Medicine; PCP Internal Medicine; Referring Provider Nurse Practitioner Acute Care; Visit Provider Nurse Practitioner Acute Care
DX: R06.02 Shortness of breath (principal)
CPT/HCPCS: 94618

== ENCOUNTER 2018-11-29 13:04 | Outpatient (RCR) | payer MEDICARE, OTHER, SELFPAY ==
[2018-11-03 13:03] VITALS: BMI 44.2
[2018-11-18 10:10] VITALS: BMI 44.2
== END 2018-11-29 23:59 | disposition home or self-care (01) ==
LOC: DC 13:04
PROVIDERS: Family Provider Internal Medicine; PCP Internal Medicine; Referring Provider Nurse Practitioner; Visit Provider Nurse Practitioner
DX: E11.65 Type 2 diabetes mellitus with hyperglycemia (principal); Z71.3 Dietary counseling and surveillance
CPT/HCPCS: 97802

== ENCOUNTER → 2018-12-03 12:40 | Outpatient (CLI) | payer MEDICARE, OTHER, SELFPAY ==
[2018-11-03 13:03] VITALS: BMI 44.2
[2018-12-03 11:02] VITALS: BMI 44.2
--- NOTE | 2018-12-03 13:11 | RAD_ITS ---
STUDY: X-RAY - CERVICAL SPINE REASON FOR EXAM: Female, 67 years old. Radiculopathy TECHNIQUE: 6 view(s) of the cervical spine were obtained. COMPARISON: None FINDINGS: The study is technically limited secondary to patient obesity. Normal anterior atlantoaxial articulation. Normal odontoid process. Normal cervical lordosis. There is limited visualization of C5-C7 on the lateral views. Normal disc space heights. There is multi-level osseous foraminal stenosis. The soft tissue structures are unremarkable. RAD/Cerv Spine 4 or 5 Views IMPRESSION: Technically limited study. Limited visualization of C5-C7 on the lateral views. There is multilevel foraminal narrowing bilaterally. If clinically indicated, CT and/or MRI may be helpful for further evaluation. Electronically Signed: Sae Knowles MD at 18:29 EDT , Service support ,
== END ==
PROVIDERS: Family Provider Internal Medicine; PCP Internal Medicine; Referring Provider Internal Medicine; Visit Provider Internal Medicine
DX: M54.12 Radiculopathy, cervical region (principal)
CPT/HCPCS: 72050

== ENCOUNTER → 2018-12-16 10:39 | Outpatient (CLI) | payer MEDICARE, OTHER, SELFPAY ==
[2018-11-03 13:03] VITALS: BMI 44.2
[2018-12-03 11:02] VITALS: BMI 44.2
[2018-12-16 09:41] VITALS: BMI 44.6
--- NOTE | 2018-12-16 10:42 | MRI_ITS ---
STUDY: MRI CERVICAL SPINE WITHOUT CONTRAST REASON FOR EXAM: Female, 68 years old. Follow-up radiographs. Decreased sensation at the hands. Decreased hand strength. TECHNIQUE: Standardized fat and water weighted pulse sequences were obtained in the sagittal and axial planes. COMPARISON: X-rays dated December 03, 2018 FINDINGS: Patient motion obscures the examination. Normal foramen magnum and brainstem-cervical cord junction. Normal craniovertebral junction. Normal anterior atlantoaxial articulation. Normal odontoid process. Preserved cervical lordosis. Intact vertebral bodies and posterior osseous elements. C2-3: Normal endplates. Normal disc height, signal and morphology. Normal central canal and intervertebral neural foramina. C3-4: Normal endplates. Shallow disc bulge without central canal narrowing. Limited neural foraminal assessment. Facet joint arthrosis. C4-5: Normal endplates. Disc bulge, asymmetric to the left, without central canal narrowing. Severe left neural foraminal narrowing. Facet joint arthrosis. C5-6: Normal endplates. Disc bulge, asymmetric to the left, without central canal narrowing. Severe left neural foraminal narrowing. Facet joint arthrosis. C6-7: Normal endplates. Central protrusion with mild central canal narrowing (axial image 43 series 8 and sagittal image 7 series 2). Limited neural foraminal assessment. Facet joint arthrosis. C7-T1: Normal endplates. Normal disc height, signal and morphology. Normal central canal and intervertebral neural foramina. No abnormal cord signal. Limited evaluation of the vascular flow voids. Mild paraspinal muscle atrophy. No obvious soft tissue abnormality given extent of motion. MRI/Spine Cervical (Routine) IMPRESSION: Motion limited examination No abnormal cord signal Multilevel intervertebral disc disease with mild central canal narrowing at C6-7 Limited neural foraminal assessment with apparent severe narrowing of the left C4 and C5 foramina (better assessed on previous radiograph) Multilevel facet joint arthrosis Electronically Signed: Vega Krishnan DO at 11:13 EDT Tel , Service support ,
== END ==
PROVIDERS: Family Provider Internal Medicine; PCP Internal Medicine; Referring Provider Internal Medicine; Visit Provider Internal Medicine
DX: M54.12 Radiculopathy, cervical region (principal); R93.7 Abnormal findings on diagnostic imaging of other parts of musculoskeletal system
CPT/HCPCS: 72141

== ENCOUNTER → 2019-05-13 13:02 | Outpatient (CLI) | payer MEDICARE, OTHER, SELFPAY ==
[2018-11-03 13:03] VITALS: BMI 44.2
[2019-03-30 14:48] VITALS: BMI 43.6
--- NOTE | 2019-05-13 13:06 | US_ITS ---
STUDY: RENAL ULTRASOUND - COMPLETE REASON FOR EXAM: Female, 68 years old. UTI. TECHNIQUE: Ultrasound evaluation of the kidneys was performed with real-time and static tolliver-scale imaging. COMPARISON: None. FINDINGS: RIGHT KIDNEY: Normal location of the right kidney, which is normal in size. The right kidney measures 11.8 x 5.6 x 6.5 cm. There is a normal cortex of the right kidney. The renal cortex measures 1.4 cm. There is no right renal mass or cyst. There are no right renal calculi. There is no right hydronephrosis. DISTAL RIGHT URETER: There is non-visualization of the distal right ureter. There is no demonstrated right ureterovesical junction calculus. There is a visualized right ureteral jet. LEFT KIDNEY: Normal location of the left kidney, which is normal in size. The left kidney measures 11.2 x 4.6 x 5.7 cm. There is a normal cortex of the left kidney. The renal cortex measures 1.3 cm. There is no left renal mass or cyst. There are no left renal calculi. There is no left hydronephrosis. DISTAL LEFT URETER: There is non-visualization of the distal left ureter. There is no demonstrated left ureterovesical junction calculus. There is a visualized left ureteral jet. BLADDER: The distended urinary bladder has a volume of 78.3 ml. There is a normal 3 mm wall thickness of the distended urinary bladder. There is no demonstrated mass within the urinary bladder. There are no demonstrated bladder calculi. US/Kidney and Bladder IMPRESSION: Normal ultrasound of the kidneys and incompletely distended urinary bladder. No hydronephrosis. Electronically Signed: Prem Beatty MD at 14:11 EDT , Service support ,
== END ==
PROVIDERS: Family Provider Internal Medicine; PCP Internal Medicine; Referring Provider Urology; Visit Provider Urology
DX: N39.0 Urinary tract infection, site not specified (principal)
CPT/HCPCS: 76770

== ENCOUNTER → 2019-05-30 10:08 | Outpatient (CLI) | payer MEDICARE, OTHER, SELFPAY ==
[2018-11-03 13:03] VITALS: BMI 44.2
[2019-03-30 14:48] VITALS: BMI 43.6
[2019-05-20 15:15] VITALS: BMI 45.2
--- NOTE | 2019-05-30 10:09 | ART_ITS ---
Reason For Study: BLE PAIN L>R Procedure A bilateral lower extremity continuous wave Doppler with analog waveform analysis and ankle brachial indexes. Left Segmental Pressures Left brachial= 150mmHg. Left posterior tibial artery = 184mmHg. Left dorsalis pedis artery = 165mmHg. Left digit = 103 mmHg. The left dorsalis pedis waveforms are triphasic. The left posterior tibial artery waveforms are triphasic. Right Segmental Pressures Right brachial= 142mmHg. Right posterior tibial artery = 179mmHg. Right dorsalis pedis artery = 162mmHg. Right digit = 147 mmHg. The right dorsalis pedis waveforms are triphasic. The right posterior tibial artery waveforms are triphasic. Indices The right ankle brachial index by the dorsalis pedis is 1.08. The right ankle brachial index by the posterior tibial artery is 1.19. The right digital-brachial index is 0.98. The left ankle brachial index by the dorsalis pedis is 1.10. The left ankle brachial index by the posterior tibial artery is 1.23. The left digital-brachial index is 0.69. Interpretation Summary Normal bilateral lower extremity resting ankle/brachial indices. Normal right digital brachial indiex Abnormal left digital brachial index--possible small vessel disease or vasospasm--clinical correlation would be appropriate. Ordering Physician: Lcuila Asencio Referring Physician: Lucila Asencio Performed By: Roxie Vilalreal RVT, RDCS
== END ==
PROVIDERS: Family Provider Internal Medicine; PCP Internal Medicine; Referring Provider Internal Medicine; Visit Provider Internal Medicine
DX: I73.9 Peripheral vascular disease, unspecified (principal); M79.604 Pain in right leg; M79.605 Pain in left leg
CPT/HCPCS: 93922

== ENCOUNTER → 2019-06-17 11:13 | Outpatient (CLI) | payer MEDICARE, OTHER, SELFPAY ==
[2018-11-03 13:03] VITALS: BMI 44.2
[2019-06-17 10:53] VITALS: BMI 44.8
--- NOTE | 2019-06-17 11:17 | RAD_ITS ---
STUDY: X-RAY CHEST REASON FOR EXAM: Female, 68 years old. Shortness of breath and cough TECHNIQUE: PA and lateral views of the chest. COMPARISON: None. FINDINGS: There are interstitial fibrotic changes of the lungs. There is no demonstrated pleural abnormality. Normal size heart. Normal mediastinum and diandra. Normal visualized pulmonary arteries. Normal visualized aortic arch and descending thoracic aorta. Normal visualized thoracic spine. Normal visualized ribs, clavicles, and shoulders. There is no demonstrated abnormality of the visualized soft tissue structures of the upper abdomen. RAD/Chest PA and Lateral IMPRESSION: Chronic interstitial changes, no superimposed acute pulmonary process Electronically Signed: Prem Hammond MD at 11:37 EDT , Service support ,
== END ==
PROVIDERS: Family Provider Internal Medicine; PCP Internal Medicine; Referring Provider Internal Medicine Critical Care Medicine; Visit Provider Internal Medicine Critical Care Medicine
DX: J44.9 Chronic obstructive pulmonary disease, unspecified (principal); I27.20 Pulmonary hypertension, unspecified; E66.01 Morbid (severe) obesity due to excess calories; Z68.41 Body mass index [BMI] 40.0-44.9, adult
CPT/HCPCS: 71046

== ENCOUNTER → 2019-06-20 13:00 | Outpatient (CLI) | payer MEDICARE, OTHER, SELFPAY ==
[2018-11-03 13:03] VITALS: BMI 44.2
[2019-05-30 11:06] VITALS: BMI 44.8
[2019-06-17 10:53] VITALS: BMI 44.8
--- NOTE | 2019-06-20 13:01 | ECHOD_ITS ---
Reason For Study: PHTN Procedure This was a 2D Doppler, Color Flow transthoracic echocardiogram. Exam performed in department. Left Ventricle Normal size and thickness. The estimated ejection fraction is 65-70 %. Stage 1 diastolic dysfunction. No regional wall motion abnormalities noted. Right Ventricle Normal size and thickness. Normal systolic function. Atria Normal left atrium. Normal right atrium. Normal atrial septum. Mitral Valve Mild diffuse mitral valve thickening. Moderate mitral annular calcification extending into the posterior leaflet. Trivial mitral valve insufficiency. Tricuspid Valve Normal tricuspid valve. Trivial tricuspid valve insufficiency. Right ventricular systolic pressure estimated to be 47 mmHg. Moderate pulmonary hypertension. Aortic Valve Trisinus/trileaflet aortic valve. Normal aortic valve. Pulmonic Valve Normal pulmonic valve. Great Vessels Normal aortic root. Normal arch. Normal inferior vena cava. Inferior vena cava collapse with sniff. Pericardium/Pleural No pericardial effusion. MMode/2D Measurements & Calculations LVIDd: 4.5 cm IVSd: 1.3 cm Ao root diam: 3.1 cm LVIDs: 2.8 cm LVPWd: 1.1 cm RVDd: 3.3 cm FS: 36.6 % LAV(MOD-bp): 47.1 ml LVAd ap4: 21.3 cm2 SV(MOD-sp4): 34.4 ml LAV(MOD-bp) Indexed: 24.8 ml/m2 EDV(MOD-sp4): 56.8 ml LAV(MOD-sp2): 54.0 ml EDV(sp4-el): 59.2 ml LAV(MOD-sp4): 42.1 ml LVAs ap4: 11.5 cm2 ESV(MOD-sp4): 22.4 ml ESV(sp4-el): 21.4 ml EF(MOD-sp4): 60.6 % EF(sp4-el): 64.0 % SV(sp4-el): 37.9 ml LA A4 area: 16.2 cm2 LA dimension(2D): 4.4 cm RA A4 area: 11.7 cm2 Doppler Measurements & Calculations MV E max manish: 117.5 cm/sec Lat Peak E' Manish: 7.3 cm/sec Med Peak E' Manish: 4.1 cm/sec MV A max manish: 107.5 cm/sec E/E' lat: 16.1 E/E' med: 28.9 MV E/A: 1.1 Ao V2 max: 161.6 cm/sec LV V1 max: 119.5 cm/sec PA V2 max: 98.9 cm/sec Ao max P.4 mmHg LV V1 max P.7 mmHg Ao V2 mean: 112.7 cm/sec Ao mean P.5 mmHg Ao V2 VTI: 34.8 cm TR max manish: 322.3 cm/sec TR max P.6 mmHg Interpretation Summary The estimated ejection fraction is 65-70 %. Stage 1 diastolic dysfunction. Trivial mitral valve insufficiency. Trivial tricuspid valve insufficiency. Right ventricular systolic pressure estimated to be 47 mmHg. Moderate pulmonary hypertension. Compared to echo report dated 09/30/2018, LV function has remained the same, but RVSP has improved from 71 to 47 mm Hg. The study was technically difficult. Ordering Physician: Jan Wick Referring Physician: Lucila Asencio Performed By: Adeola Mcclain, DARREN, RVT
== END ==
PROVIDERS: Family Provider Internal Medicine; PCP Internal Medicine; Referring Provider Internal Medicine Cardiovascular Disease; Visit Provider Internal Medicine Cardiovascular Disease
DX: I27.20 Pulmonary hypertension, unspecified (principal); J44.9 Chronic obstructive pulmonary disease, unspecified; R06.02 Shortness of breath; I27.21 Secondary pulmonary arterial hypertension; I25.10 Atherosclerotic heart disease of native coronary artery without angina pectoris; Z95.5 Presence of coronary angioplasty implant and graft
CPT/HCPCS: 93306

== ENCOUNTER → 2019-07-25 14:58 | Outpatient (CLI) | payer MEDICARE, OTHER, SELFPAY ==
[2018-11-03 13:03] VITALS: BMI 44.2
[2019-07-25 14:00] VITALS: BMI 44.8
[2019-07-25 16:15] LABS: Absolute Neutrophil Count 5.7 X10^3/uL (2.0-7.7); Basophil# 0.03 X10^3/uL; Basophil% 0.4 % (0-1); Eosinophil# 0.19 X10^3/uL; Eosinophils% 2.5 % (0-5); Hemoglobin 12.9 g/dL (12.0-15.0); Lymphocyte % 16.8 % (19-41); Mean Corp Hgb Conc 31.5 g/dL (32-36); Mean Corpuscular Hgb 29.9 pg (27.0-32.0); Mean Corpuscular Volume 95.1 fL (81-99); Mean Platelet Vol. 12.3 fl (6.2-12.0); Monocyte# 0.53 X10^3/uL; Monocyte% 6.9 % (0-10); NRBC Flagged by Analyzer 0 % (0-5); Neutrophil # 5.66 X10^3/uL (2.7-7.7); Neutrophil % 73.1 % (47-70); Platelet Count 162 K/mm3 (150-450); RBC Distribution Width SD 49.6 fl (35.1-43.9); Red Blood Count 4.31 M/mm3 (4.2-5.4); White Blood Count 7.7 K/mm3 (4.4-11.0)
[2019-07-25 16:43] LABS: Anion Gap 9 (5-15); BUN 22 mg/dL (7-18); BUN/Creat Ratio 17.5 RATIO (10-20); Calcium,Total 8.9 mg/dL (8.5-10.1); Chloride 100 mmol/L (98-107); Creatinine, Serum 1.26 mg/dL (0.55-1.02); EST Glomerular Filtration Rate 45 mL/min (>60); Est Glom Filt Rate - Afr Amer 54 mL/min (>60); Glucose 225 mg/dL (74-106); Potassium 4.7 mmol/L (3.5-5.1); Sodium Level 139 mmol/L (136-145); Thyroid Stim Hormone (TSH) 1.58 uIU/mL (0.358-3.74)
[2019-07-25 17:04] LABS: BNP,B-Type NATRIURETIC PEPTIDE 10.3 pg/mL (0-100)
== END ==
LOC: LAB 14:59
PROVIDERS: Family Provider Internal Medicine; PCP Internal Medicine; Referring Provider Physician Assistant Medical; Visit Provider Physician Assistant Medical
DX: I25.10 Atherosclerotic heart disease of native coronary artery without angina pectoris (principal); I10 Essential (primary) hypertension; I27.21 Secondary pulmonary arterial hypertension; E78.5 Hyperlipidemia, unspecified; G47.33 Obstructive sleep apnea (adult) (pediatric); R53.83 Other fatigue
CPT/HCPCS: 36415; 80048; 83880; 84443; 85025

== ENCOUNTER → 2019-12-07 10:50 | Outpatient (CLI) | payer MEDICARE, OTHER, SELFPAY ==
[2018-11-03 13:03] VITALS: BMI 44.2
[2019-12-07 10:05] VITALS: BMI 45.4
[2019-12-07 12:44] LABS: ALB/GLOB Ratio 0.9 RATIO (0.9-2.4); AST(SGOT) 50 U/L (15-37); Alanine Aminotransfer ALT/SGPT 49 U/L (13-56); Albumin, Serum 3.9 g/dL (3.2-5.0); Alkaline Phosphatase 108 U/L (45-117); Anion Gap 8 (5-15); BUN 30 mg/dL (7-18); BUN/Creat Ratio 21.7 RATIO (10-20); Calcium,Total 9.8 mg/dL (8.5-10.1); Chloride 96 mmol/L (98-107); Creatinine, Serum 1.38 mg/dL (0.55-1.02); EST Glomerular Filtration Rate 40 mL/min (>60); Est Glom Filt Rate - Afr Amer 49 mL/min (>60); Globulin 4.4 g/dL (2.2-4.2); Glucose 113 mg/dL (74-106); Potassium 4.1 mmol/L (3.5-5.1); Protein, Total 8.3 g/dL (6.4-8.2); Sodium Level 134 mmol/L (136-145)
== END ==
PROVIDERS: PCP Internal Medicine; Referring Provider Internal Medicine; Visit Provider Internal Medicine
DX: I11.0 Hypertensive heart disease with heart failure (principal); I50.32 Chronic diastolic (congestive) heart failure; F41.9 Anxiety disorder, unspecified; F32.9 Major depressive disorder, single episode, unspecified; E78.5 Hyperlipidemia, unspecified; E11.9 Type 2 diabetes mellitus without complications
CPT/HCPCS: 80053

== ENCOUNTER → 2020-02-24 10:25 | Outpatient (CLI) | payer MEDICARE, OTHER, SELFPAY ==
[2018-11-03 13:03] VITALS: BMI 44.2
[2020-02-24 09:58] VITALS: BMI 45.6
[2020-02-24 13:17] LABS: ALB/GLOB Ratio 0.8 RATIO (0.9-2.4); AST(SGOT) 56 U/L (15-37); Alanine Aminotransfer ALT/SGPT 52 U/L (13-56); Albumin, Serum 3.4 g/dL (3.2-5.0); Alkaline Phosphatase 101 U/L (45-117); Anion Gap 6 (5-15); BUN 20 mg/dL (7-18); Calcium,Total 9.9 mg/dL (8.5-10.1); Chloride 99 mmol/L (98-107); Creatinine, Serum 0.95 mg/dL (0.55-1.02); EST Glomerular Filtration Rate 62 mL/min (>60); Est Glom Filt Rate - Afr Amer 75 mL/min (>60); Glucose 245 mg/dL (74-106); Potassium 4.4 mmol/L (3.5-5.1); Protein, Total 7.4 g/dL (6.4-8.2); Sodium Level 137 mmol/L (136-145)
== END ==
PROVIDERS: PCP Internal Medicine; Referring Provider Internal Medicine; Visit Provider Internal Medicine
DX: N39.0 Urinary tract infection, site not specified (principal); I10 Essential (primary) hypertension
CPT/HCPCS: 36415; 80053

== ENCOUNTER → 2020-07-13 14:25 | Outpatient (CLI) | payer MEDICARE, OTHER, SELFPAY ==
[2018-11-03 13:03] VITALS: BMI 44.2
[2019-12-07 12:45] VITALS: BMI 45.6
[2020-06-21 13:53] VITALS: BMI 45.6
--- NOTE | 2020-07-13 14:25 | BI_ITS ---
MAMMOGRAPHY - BILATERAL SCREENING REASON FOR EXAM: Female, 69 years old. Routine annual screening examination. PERTINENT HISTORY: Non-contributory. TECHNIQUE: Digital bilateral breast marcy (3D mammographic acquisition) in the CC and MLO projections. 2-D mediolateral oblique (MLO) and craniocaudad (CC) views of both breasts were obtained. CAD: Full Field Digital Mammography with Computer Added Detection was performed. COMPARISON: Comparison is made with prior examination dated 09/23/2018. FINDINGS: Breast Composition: There are scattered areas of fibroglandular density. There are no dominant masses or suspicious calcifications. No other significant abnormalities are identified. There has been no significant change since the prior study. BI/SCREEN MAMM (CAD) W/MARCY BILAT IMPRESSION: Stable bilateral screening mammogram. Yearly follow-up mammogram recommended. (A) ASSESSMENT CATEGORY: BIRADS Category 1: Negative. A letter regarding these results will be sent to the patient by the facility within 30 days. Approximately 10% of breast cancers are not detected by mammography. A normal mammogram should not delay biopsy of a clinically suspicious abnormality. [id number] Electronically Signed: Everardo Rivas, at 15:40 EDT , Service support ,
== END ==
PROVIDERS: PCP Internal Medicine; Referring Provider Internal Medicine; Visit Provider Internal Medicine
DX: Z12.31 Encounter for screening mammogram for malignant neoplasm of breast (principal)
CPT/HCPCS: 77063; 77067

== ENCOUNTER → 2020-09-28 11:21 | Outpatient (CLI) | payer MEDICARE, OTHER, SELFPAY ==
[2018-11-03 13:03] VITALS: BMI 44.2
[2020-09-28 10:41] VITALS: BMI 47.6
[2020-09-28 12:33] LABS: Absolute Lymphocyte Count 1.43 X10^3/uL (0.83-4.51); Basophil# 0.02 X10^3/uL; Basophil% 0.2 % (0-1); Eosinophil# 0.13 X10^3/uL; Eosinophils% 1.6 % (0-5); Hematocrit 39.4 % (37-47); Hemoglobin 12.4 g/dL (12.0-15.0); Lymphocyte # 1.43 X10^3/ul (4.0); Lymphocyte % 17.6 % (19-41); Mean Corp Hgb Conc 31.5 g/dL (32-36); Mean Corpuscular Hgb 30.3 pg (27.0-32.0); Mean Corpuscular Volume 96.3 fL (81-99); Mean Platelet Vol. 11.7 fl (6.2-12.0); Monocyte# 0.52 X10^3/uL; Monocyte% 6.4 % (0-10); NRBC Flagged by Analyzer 0 % (0-5); Platelet Count 126 K/mm3 (150-450); RBC Distribution Width CV 13.7 % (11.6-14.6); RBC Distribution Width SD 48.7 fl (35.1-43.9); Red Blood Count 4.09 M/mm3 (4.2-5.4); White Blood Count 8.1 K/mm3 (4.4-11.0)
[2020-09-28 13:03] LABS: ALB/GLOB Ratio 0.8 RATIO (0.9-2.4); AST(SGOT) 68 U/L (15-37); Alanine Aminotransfer ALT/SGPT 45 U/L (13-56); Albumin, Serum 3.3 g/dL (3.2-5.0); Alkaline Phosphatase 114 U/L (45-117); Anion Gap 4 (5-15); BUN 14 mg/dL (7-18); BUN/Creat Ratio 15.9 RATIO (10-20); Calcium,Total 9.7 mg/dL (8.5-10.1); Chloride 101 mmol/L (98-107); Cholesterol 173 mg/dL (200); Creatinine, Serum 0.88 mg/dL (0.55-1.02); EST Glomerular Filtration Rate 67 mL/min (>60); Est Glom Filt Rate - Afr Amer 81 mL/min (>60); Globulin 4.3 g/dL (2.2-4.2); Glucose 187 mg/dL (74-106); High Density Lipoprotein 36 mg/dL; Potassium 4.2 mmol/L (3.5-5.1); Protein, Total 7.6 g/dL (6.4-8.2); Sodium Level 136 mmol/L (136-145); Triglycerides 141 mg/dL; Very Low Density Lipoprotein 28 mg/dL (5-40)
== END ==
PROVIDERS: PCP Internal Medicine; Referring Provider Internal Medicine; Visit Provider Internal Medicine
DX: E78.5 Hyperlipidemia, unspecified (principal); E11.9 Type 2 diabetes mellitus without complications; I10 Essential (primary) hypertension
CPT/HCPCS: 36415; 80053; 80061; 85025

== ENCOUNTER → 2020-11-30 10:26 | Outpatient (CLI) | payer MEDICARE, OTHER, SELFPAY ==
[2018-11-03 13:03] VITALS: BMI 44.2
[2020-04-11 10:30] VITALS: BMI 45.6
[2020-09-28 10:41] VITALS: BMI 47.6
--- NOTE | 2020-12-01 07:50 | PFT ---
INTRODUCTION: The patient is a 69-year-old female that presents for pulmonary function studies secondary to a diagnosis of COPD. Respiratory therapy reports good patient effort. Bronchodilators were used during testing. INTERPRETATION: Forced expiration spirometry demonstrates the presence of a severe large airways obstructive ventilatory defect. There was a significant response to aerosolized bronchodilators. Spirograms are of fair quality and plateau gradually indicating slow emptying of the lungs. Body plethysmography was performed and revealed a decreased TLC to 2.79 L, 73% of predicted, indicative of a mild restrictive ventilatory impairment. Diffusing capacity by single breath CO is reduced at 54% of predicted. When compared to previous pulmonary function studies from November 2018, there has been a significant reduction in TLC. IMPRESSION: Partially reversible severe mixed ventilatory defect with symmetric reduction in diffusing capacity. There has been worsening in the patient's total lung capacity since 2019, as noted above.
== END ==
PROVIDERS: PCP Internal Medicine; Referring Provider Nurse Practitioner Acute Care; Visit Provider Nurse Practitioner Acute Care
DX: J44.9 Chronic obstructive pulmonary disease, unspecified (principal)
CPT/HCPCS: 94060; 94726; 94729

== ENCOUNTER → 2020-12-10 11:02 | Outpatient (CLI) | payer MEDICARE, OTHER, SELFPAY ==
[2018-11-03 13:03] VITALS: BMI 44.2
[2020-12-10 10:21] VITALS: BMI 46.4
--- NOTE | 2020-12-10 11:15 | RAD_ITS ---
INDICATION: Concern for effusion, SOB EXAMINATION/TECHNIQUE: X-RAY - XR Chest 2 Views COMPARISON: 06/17/2019. FINDINGS: Chronic interstitial lung changes. Tortuous and calcified thoracic aorta. The heart is not enlarged. No pleural effusion or pneumothorax. No acute osseous abnormalities. RAD/Chest PA and Lateral IMPRESSION: No acute radiographic abnormalities. Chronic interstitial lung changes. Electronically Signed: Tucker Brown MD at 20:21 EDT Tel , Service support ,
== END ==
PROVIDERS: PCP Internal Medicine; Referring Provider Internal Medicine Critical Care Medicine; Visit Provider Internal Medicine Critical Care Medicine
DX: I27.20 Pulmonary hypertension, unspecified (principal); J44.9 Chronic obstructive pulmonary disease, unspecified
CPT/HCPCS: 71046

== ENCOUNTER → 2021-02-07 12:41 | Outpatient (CLI) | payer MEDICARE, OTHER, SELFPAY ==
[2018-11-03 13:03] VITALS: BMI 44.2
[2021-01-21 13:46] VITALS: BMI 46.4
--- NOTE | 2021-02-07 12:44 | ECHOCS_ITS ---
Reason For Study: MURMUR Procedure This was a 2D Doppler, Color Flow transthoracic echocardiogram. The study was technically difficult. Contrast injection was performed. Exam performed in department. Left Ventricle Based upon the 2D echocardiographic and contrast enhanced images obtained there appears to be grossly normal left ventricular size, wall motion, and systolic function. The estimated ejection fraction is 60 %. There is evidence of diastolic dysfunction. Right Ventricle Normal RV size. Normal systolic function. Atria The left atrium is mildly enlarged. Normal right atrium. No doppler evidence for ASD. Mitral Valve There is mild mitral annular calcification. Extension of the mitral annular calcification on the base of the posterior mitral leaflet. Trivial mitral valve insufficiency. Tricuspid Valve Normal tricuspid valve. Trivial tricuspid valve insufficiency. Right ventricular systolic pressure estimated to be 43 mmHg. Aortic Valve The aortic valve is not well visualized. Trivial aortic valve insufficiency. Pulmonic Valve The pulmonic valve is not well visualized. Great Vessels Normal sized aortic root. Pericardium/Pleural No pericardial effusion. MMode/2D Measurements & Calculations RVDd: 4.3 cm Ao root diam: 3.4 cm LAV(MOD-bp): 69.1 ml LAV(MOD-bp) Indexed: 35.3 ml/m2 LAV(MOD-sp2): 55.9 ml LAV(MOD-sp4): 85.0 ml SV(MOD-sp4): 81.9 ml LVAd ap4: 35.2 cm2 LVAd ap2: 27.7 cm2 LVLd ap4: 8.4 cm LVLd ap2: 7.7 cm EDV(MOD-sp4): 126.3 ml EDV(MOD-sp2): 84.0 ml EDV(sp4-el): 125.6 ml EDV(sp2-el): 84.3 ml LVAs ap4: 18.1 cm2 LVAs ap2: 15.8 cm2 LVLs ap4: 6.1 cm LVLs ap2: 6.3 cm ESV(MOD-sp4): 44.4 ml ESV(MOD-sp2): 33.6 ml ESV(sp4-el): 45.7 ml ESV(sp2-el): 33.4 ml EF(MOD-sp4): 64.9 % EF(MOD-sp2): 60.1 % EF(sp4-el): 63.6 % SV(MOD-sp2): 50.5 ml SV(sp4-el): 79.9 ml LA A4 area: 25.1 cm2 LA dimension(2D): 3.7 cm RA A4 area: 16.6 cm2 Time Measurements MV dec time: 0.22 sec Doppler Measurements & Calculations MV E max manish: 113.2 cm/sec Lat Peak E' Manish: 8.0 cm/sec Med Peak E' Manish: 5.0 cm/sec MV A max manish: 120.1 cm/sec E/E' lat: 14.1 E/E' med: 22.5 MV E/A: 0.94 MV V2 max: 106.9 cm/sec Ao V2 max: 173.3 cm/sec LV V1 max: 119.0 cm/sec MV max P.6 mmHg Ao max P.0 mmHg LV V1 max P.7 mmHg MV V2 mean: 66.4 cm/sec MV mean P.1 mmHg MV V2 VTI: 33.7 cm PA V2 max: 111.1 cm/sec TR max manish: 314.5 cm/sec MV P1/2t-pr_phl: 73.1 msec TR max P.6 mmHg ECHO/Echo Complete W/ Contrast Interpretation Summary The study was technically difficult. Contrast injection was performed. Based upon the 2D echocardiographic and contrast enhanced images obtained there appears to be grossly normal left ventricular size, wall motion, and systolic function. The estimated ejection fraction is 60 %. The left atrium is mildly enlarged. There is mild mitral annular calcification. Extension of the mitral annular calcification on the base of the posterior mitr al leaflet. Trivial mitral valve insufficiency. Trivial tricuspid valve insufficiency. Trivial aortic valve insufficiency. Right ventricular systolic pressure estimated to be 43 mmHg. There is evidence of diastolic dysfunction. Ordering Physician: Bienvenido Lim Referring Physician: Lucila Asencio Performed By: Evangelina Mendenhall, HUDSONCS, RVT
== END ==
PROVIDERS: PCP Internal Medicine; Referring Provider Internal Medicine Cardiovascular Disease; Visit Provider Internal Medicine Cardiovascular Disease
DX: I25.10 Atherosclerotic heart disease of native coronary artery without angina pectoris (principal); R01.1 Cardiac murmur, unspecified
CPT/HCPCS: 93306; Q9957; A4216; C8929

== ENCOUNTER → 2021-03-01 10:45 | Outpatient (CLI) | payer MEDICARE, OTHER, SELFPAY ==
[2018-11-03 13:03] VITALS: BMI 44.2
[2021-03-01 10:12] VITALS: BMI 48.6
[2021-03-01 12:26] LABS: ALB/GLOB Ratio 0.9 RATIO (0.9-2.4); AST(SGOT) 53 U/L (15-37); Alanine Aminotransfer ALT/SGPT 39 U/L (13-56); Albumin, Serum 3.3 g/dL (3.2-5.0); Alkaline Phosphatase 103 U/L (45-117); Anion Gap 2 (5-15); BUN 29 mg/dL (7-18); BUN/Creat Ratio 30.6 RATIO (10-20); Calcium,Total 9.4 mg/dL (8.5-10.1); Chloride 99 mmol/L (98-107); Creatinine, Serum 0.95 mg/dL (0.55-1.02); EST Glomerular Filtration Rate 62 mL/min (>60); Est Glom Filt Rate - Afr Amer 75 mL/min (>60); Globulin 3.5 g/dL (2.2-4.2); Glucose 261 mg/dL (74-106); Potassium 4.2 mmol/L (3.5-5.1); Protein, Total 6.8 g/dL (6.4-8.2); Sodium Level 138 mmol/L (136-145)
== END ==
PROVIDERS: PCP Internal Medicine; Referring Provider Internal Medicine; Visit Provider Internal Medicine
DX: I10 Essential (primary) hypertension (principal)
CPT/HCPCS: 36415; 80053

== ENCOUNTER 2021-06-06 17:00 | Emergency (ER) | payer MEDICARE, OTHER, SELFPAY ==
[2018-11-03 13:03] VITALS: BMI 44.2
[2021-06-06 17:02] VITALS: BP 96/82; PULSE 65; RESP 22; TEMP 36; O2SAT 95; BMI 45.9
--- NOTE | 2021-06-06 18:12 | EKG12_ITS ---
Test Reason : FALL Blood Pressure : / mmHG Vent. Rate : 067 BPM Atrial Rate : 067 BPM P-R Int : 146 ms QRS Dur : 086 ms QT Int : 434 ms P-R-T Axes : 080 077 073 degrees QTc Int : 458 ms Normal sinus rhythm Septal infarct , age undetermined , cannot be excluded Abnormal ECG Confirmed by MARIIA WALTERS, ISAIAS ([id number]), editor map SILVERIO VALDOVINOS ([id number]) on 06/07/2021 1:13:18 PM Referred By: BRUCE/KEVIN Confirmed By:ISAIAS CHIANG MD
[2021-06-06 19:07] LABS: Absolute Neutrophil Count 9.6 X10^3/uL (2.0-7.7); Basophil# 0.08 X10^3/uL; Basophil% 0.6 % (0-1); Eosinophil# 0.11 X10^3/uL; Eosinophils% 0.8 % (0-5); Hematocrit 35.9 % (37-47); Hemoglobin 11.4 g/dL (12.0-15.0); Lymphocyte % 18.5 % (19-41); Mean Corp Hgb Conc 31.8 g/dL (32-36); Mean Corpuscular Hgb 30.2 pg (27.0-32.0); Mean Corpuscular Volume 95.2 fL (81-99); Mean Platelet Vol. 11.9 fl (6.2-12.0); Monocyte# 1.15 X10^3/uL; Monocyte% 8.5 % (0-10); NRBC Flagged by Analyzer 0 % (0-5); Neutrophil # 9.62 X10^3/uL (2.7-7.7); Neutrophil % 71.2 % (47-70); POSITIVE COUNT YES; Platelet Count 154 K/mm3 (150-450); RBC Distribution Width CV 13.5 % (11.6-14.6); RBC Distribution Width SD 47.6 fl (35.1-43.9); Red Blood Count 3.77 M/mm3 (4.2-5.4); White Blood Count 13.5 K/mm3 (4.4-11.0)
--- NOTE | 2021-06-06 19:20 | RAD_ITS ---
STUDY: X-RAY - RIGHT FOOT CLINICAL: Female, 70 years old. pain TECHNIQUE: 3 view(s) of the foot. COMPARISON: None. FINDINGS: Acute fracture of the distal fibular shaft Normal talus, calcaneus, and tarsal bones. Normal visualized subtalar, talonavicular, calcaneocuboid, tarsal and tarsometatarsal articulations. Nondisplaced cortical fracture of the base of the second metatarsal. Postsurgical changes status post fusion of the first metatarsal proximal phalanx of the great toe.. Normal tibial and fibular sesamoid bones. Normal interphalangeal joint of the great toe. Normal phalanges of the great toe. Normal second through fifth metatarsophalangeal joints. Normal interphalangeal joints and phalanges of the lesser toes. The soft tissue structures are unremarkable. RAD/Foot min 3 Views IMPRESSION: Acute hairline fracture of the base of the second metatarsal.. Postsurgical changes of the first toe Electronically Signed: Jimbo Palencia MD at 21:33 EDT , Service support ,
--- NOTE | 2021-06-06 19:23 | ED.VIS.LOWEX ---
HPI History of Present Illness Chief Complaint: Lower Extremity Injury Narrative Narrative: Patient presenting with right ankle pain. Apparently she had imaging done at an outside hospital last night and was offered admission but did not want to stay in the hospital. She was discharged home without pain medication at her request. Podiatry follow-up today sent her to the ED because she has multiple health problems and he needed medical clearance in order to be performed the surgery. On patient arrival he is having worsening pain in the right ankle. She states this is because she cannot keep it elevated well. She does have a at home that can help her. [facility] Medical History Anxiety and depression Arthritis Asthma Atherosclerosis of coronary artery of [place] heart without angina pectoris Atherosclerotic heart disease of [place] coronary artery without angina pectoris Back problem Cancer Cardiac murmur Cataracts, bilateral Chronic headaches CVA (cerebral vascular accident) Diastolic CHF Essential (primary) hypertension Exertional shortness of breath Gallstones GI problem High triglycerides Hives Hyperlipidemia IBS (irritable bowel syndrome) Morbid obesity with BMI of 40.0-44.9, adult Neuropathy Nicotine dependence CIARRA (obstructive sleep apnea) Pancreatitis Pulmonary hypertension Routine health maintenance Secondary pulmonary arterial hypertension Skin tags, multiple acquired Uncontrolled type 2 diabetes mellitus UTI (urinary tract infection) Vision problem Home Medications albuterol sulfate 90 mcg/actuation aerosol inhaler 2 puff INHALATION Q6H PRN 07/21/18 [History Last Taken 09/29/18 08:00] calcium citrate 200 mg (950 mg) tablet 400 mg PO QHS tab 07/21/18 [History Last Taken 11/02/18 21:00] omega-3 fatty acids 500 mg capsule 500 mg PO BID cap 07/21/18 [History Last Taken 11/02/18 08:00] magnesium oxide 400 mg PO QHS 09/29/18 [History Last Taken 11/02/18 21:00] multivitamin with minerals 1 tab PO DAILY 09/29/18 [History Last Taken 11/02/18 08:00] albuterol sulfate 2.5 mg INHALATION Q6H PRN PRN #120 vial 10/01/18 [Rx Last Taken 09/21/18 08:00] nitroglycerin 0.3 mg sublingual tablet 0.3 mg SUBLINGUAL Q5-15M PRN 10/21/18 [History Last Taken Unknown] aspirin 81 mg tablet,delayed release 81 mg PO DAILY 10/26/18 [History Last Taken 11/03/18] flash glucose scanning reader #1 ea 07/01/19 [Rx Last Taken Unknown] flash glucose sensor #4 ea 07/01/19 [Rx Last Taken Unknown] insulin syringe-needle U-100 0.5 mL 31 gauge x 02/03 #100 ea 09/29/19 [Rx Last Taken Unknown] budesonide-formoterol HFA 80 mcg-4.5 mcg/actuation aerosol inhaler 2 puff INHALATION BID #10.2 g 04/11/20 [Rx Last Taken Unknown] montelukast 10 mg tablet 10 mg PO QHS #90 tab 11/19/20 [Rx Last Taken Unknown] atenolol 25 mg tablet 25 mg PO DAILY #90 tab 01/04/21 [Rx Last Taken Unknown] losartan 50 mg tablet 50 mg PO DAILY #90 tab 01/04/21 [Rx Last Taken Unknown] furosemide 40 mg tablet 40 mg PO DAILY tab 01/21/21 [History Last Taken Unknown] insulin regular hum U-500 conc 90 unit SC TID ml 01/21/21 [History Last Taken Unknown] amitriptyline 25 mg tablet 25 mg PO QHS #90 tab 02/19/21 [Rx Last Taken Unknown] fenofibrate 54 mg tablet 108 mg PO DAILY #180 tab 03/01/21 [Rx Last Taken Unknown] omeprazole 20 mg capsule,delayed release 20 mg PO DAILY 03/01/21 [History Last Taken Unknown] trimethoprim 100 mg tablet 100 mg PO DAILY 03/01/21 [History Last Taken Unknown] clopidogrel 75 mg tablet 75 mg PO DAILY #90 tab 03/04/21 [Rx Last Taken Unknown] rosuvastatin 5 mg tablet 5 mg PO DAILY #90 tab 03/04/21 [Rx Last Taken Unknown] pen needle, diabetic 32 gauge x 32 #300 each 04/12/21 [Rx Last Taken Unknown] hydrocodone-acetaminophen 1 tab PO Q6H PRN PRN 3 Days #12 tablet 06/06/21 [Rx Last Taken Unknown] Allergy/AdvReac Type Severity Reaction Status Date / Time ciprofloxacin Allergy Severe Hives Verified 06/06/21 17:01 clindamycin Allergy Severe Hives Verified 06/06/21 17:01 codeine Allergy Severe Itching Verified 06/06/21 17:01 formoterol [From Dulera] Allergy Severe Unknown Verified 06/06/21 17:01 mometasone furoate Allergy Severe Unknown Verified 06/06/21 17:01 [From Dulera] Penicillins Allergy Severe Hives Verified 06/06/21 17:01 Sulfa (Sulfonamide Allergy Severe Hives Verified 06/06/21 17:01 Antibiotics) fluticasone Allergy Unknown Unknown Verified 06/06/21 17:01 [From Advair Diskus] gemfibrozil [From Lopid] Allergy Unknown Unknown Verified 06/06/21 17:01 metformin Allergy Unknown Upset Verified 06/06/21 17:01 Stomach oxycodone [From Percocet] Allergy Unknown Rash Verified 06/06/21 17:01 salmeterol Allergy Unknown Unknown Verified 06/06/21 17:01 [From Advair Diskus] Family History Mother Asthma Arthritis Hypertension Grandmother Cancer Brother Diabetes Heart disease Hypertension Father Heart disease Hypertension Surgical History H/O: H/O: hysterectomy History of right cataract extraction Hx of cataract surgery Hx of cholecystectomy Stented coronary artery (11/03/18) Social History Smoking Status: Former smoker Tobacco: How many years used: 50 how long ago did patient quit smokin, 1ppd second hand exposure: Yes alcohol intake: never substance use type: does not use ROS ROS ED Constitutional Constitutional ED: Denies chills or fever(s) Eyes Eyes: Denies blurry vision or change in vision ENT ENT ED: Denies rhinorrhea or sore throat Cardiovascular Cardiovascular: Denies chest pain or palpitations Respiratory/Chest Respiratory/Chest: Denies cough or dyspnea Gastrointestinal Gastrointestinal: Denies abdominal pain or nausea Genitourinary Genitourinary ED: Denies dysuria or hematuria Musculoskeletal Musculoskeletal: Reports other Details: Right ankle pain Integumentary Denies Abrasions or rash Neurologic Neurologic: Denies headache(s) or paresthesias EXAM Physical Exam Const Vital Signs: 06/06/21 17:02 06/06/21 20:24 Temperature 96.8 F L 96.8 F L Temperature Source Temporal Temporal Pulse Rate 65 65 Respiratory Rate 22 H 22 H Blood Pressure 96/82 H 96/82 H Blood Pressure Mean 86 86 Pulse Ox 95 95 Oxygen Delivery Method Nasal Cannula Nasal Cannula Oxygen Flow Rate (L/min) 4 4 Positive well nourished General Appearance ED: NAD HEENT normocephalic and atraumatic Resp normal respiratory effort and clear to auscultation bilaterally Cardio regular rate and regular rhythm Extremity Extremity Narrative: Patient is in a splint. Her right ankle is tender to palpation. There is cap refill to all 5 toes. Neuro oriented x3 Sensorium / Orientation: alert Psych mental status grossly normal MDM MDM MDM Narrative Medical decision making narrative: After patient arrival I spoke with Dr. Palmer who still wanted to obtain medical clearance labs and imaging. She states that given that the patient is on Plavix she would have to wait several days to perform surgery on her. At this point she states the patient may have to go home and receiving pain medicines there. Patient states she has a at home that can help her. I will obtain blood work and imaging. Patient had an EKG which shows a normal sinus rhythm with ventricular rate of 67 bpm without sign of ischemic change. I obtained lab work for surgical planning. Patient's renal function and electrolytes are normal. She is a slight leukocytosis at 13.5. Her last hemoglobin was from September and was 12.5. I obtain images of the right ankle and right foot. Right ankle images show near anatomical alignment of previous fractures. Right foot shows a fracture of the base of the fifth metatarsal. Patient is already splinted. She is given Alva for pain. Patient will be given a prescription for this as well. Patient is nonambulatory currently. She was able to call her who will pick her up. She will follow-up with podiatry next week. Impression: 1. Right ankle fracture 2. Base of fifth metatarsal fracture Lab Data Labs: Laboratory Results - last 24 hr 06/06/21 06/06/21 06/06/21 18:58 19:05 20:22 WBC 13.5 H RBC 3.77 L Hgb 11.4 L Hct 35.9 L MCV 95.2 MCH 30.2 MCHC 31.8 L RDW Std Deviation 47.6 H RDW Coeff of [place] 13.5 Plt Count 154 MPV 11.9 Immature Gran % (Auto) 0.400 Neut % (Auto) 71.2 H Lymph % (Auto) 18.5 L [place] % (Auto) 8.5 Eos % (Auto) 0.8 Baso % (Auto) 0.6 Absolute Neuts (auto) 9.6 H Absolute Lymphs (auto) 2.50 Nucleated RBC % 0 Differential Comment SCANNED Sodium 138 Potassium 3.6 Chloride 100 Carbon Dioxide 34.0 H Anion Gap 4 L BUN 23 H Creatinine 0.94 Estim Creat Clear Calc 86.48 Est GFR (MDRD) Af Amer 75 Est GFR (MDRD) Non-Af 62 BUN/Creatinine Ratio 24.4 H Glucose 83 Calcium 9.6 Total Bilirubin 0.60 AST 49 H ALT 48 Alkaline Phosphatase 106 Total Protein 7.6 Albumin 3.2 Globulin 4.4 H Albumin/Globulin Ratio 0.7 L POC Glucose 84 Radiography Diagnostic Testing: Radiology Impression Foot X-Ray 06/06/21 19:20 IMPRESSION: Acute hairline fracture of the base of the second metatarsal.. Postsurgical changes of the first toe Electronically Signed: Jimbo Palencia MD at 21:33 EDT , Service support , Ankle X-Ray 06/06/21 19:58 IMPRESSION: Status post ORIF and casting of distal tibial and fibular fractures with fracture fragments in near anatomic alignment and position Electronically Signed: Jimbo Palencia MD at 21:35 EDT , Service support , Discharge Plan Triage Chief Complaint: Lower Extremity Injury ED Provider: Josiah Grider Dx/Rx/DC Orders Instructions: ED Ankle Fracture Prescriptions: New hydrocodone-acetaminophen 5-325 mg tablet 1 tab PO Q6H PRN PRN (Reason: Pain) 3 Days Qty: 12 RF: 0 No Action calcium citrate 200 mg (950 mg) tablet 400 mg PO QHS RF: 0 omega-3 fatty acids 500 mg capsule 500 mg PO BID RF: 0 Ventolin HFA 90 mcg/actuation HFA aerosol inhaler 2 puff INHALATION Q6H PRN (Reason: Asthma) RF: 0 nitroglycerin 0.3 mg tablet, sublingual 0.3 mg SUBLINGUAL Q5-15M PRN (Reason: chest pain) RF: 0 aspirin [Adult Aspirin Regimen] 81 mg tablet,delayed release (DR/EC) 81 mg PO DAILY RF: 0 (DME) FreeStyle Charli 14 Day [place] Misc See Rx Instructions .ROUTE .MEDSUPPLY Qty: 1 RF: 0 (DME) FreeStyle Charli 14 Day Sensor Kit See Rx Instructions .ROUTE .MEDSUPPLY Qty: 4 RF: 7 budesonide-formoterol 80-4.5 mcg/actuation HFA aerosol inhaler 2 puff INHALATION BID Qty: 10.2 RF: 3 Humulin R U-500 (Conc) Kwikpen 500 unit/mL (3 mL) insulin pen 90 unit SC TID RF: 0 furosemide 40 mg tablet 40 mg PO DAILY RF: 0 omeprazole 20 mg capsule,delayed release(DR/EC) 20 mg PO DAILY RF: 0 trimethoprim 100 mg tablet 100 mg PO DAILY RF: 0 fenofibrate 54 mg tablet 54 mg tablet 108 mg PO DAILY Qty: 180 RF: 3 multivitamin with minerals 1 EACH tablet 1 tab PO DAILY RF: 0 magnesium oxide 400 MG tablet 400 mg PO QHS RF: 0 albuterol sulfate 2.5 MG/3 ML solution for nebulization 2.5 mg Inhalation Q6H PRN PRN (Reason: Sob &/Or Wheezing) Qty: 120 RF: 0 (DME) insulin syringe-needle U-100 [BD Insulin Syringe Ultra-Fine] 0.5 mL 31 gauge x 5/16 syringe See Rx Instructions .ROUTE .MEDSUPPLY Qty: 100 RF: 8 montelukast 10 mg tablet 10 mg PO QHS Qty: 90 RF: 3 atenolol 25 mg tablet 25 mg PO DAILY Qty: 90 RF: 3 losartan 50 mg tablet 50 mg PO DAILY Qty: 90 RF: 3 amitriptyline 25 mg tablet 25 mg PO QHS Qty: 90 RF: 3 clopidogrel 75 mg tablet 75 mg PO DAILY Qty: 90 RF: 3 rosuvastatin 5 mg tablet 5 mg PO DAILY Qty: 90 RF: 3 (DME) pen needle, diabetic [BD Ultra-Fine July Pen Needle] 32 gauge x 5/32 needle See Rx Instructions .ROUTE .MEDSUPPLY Qty: 300 RF: 3 Primary Care Provider: Lucila Asencio Referrals: Lucila Asencio MD [Primary Care Provider] - Leslie Palmer DPM [STAFF PHYSICIAN] - As soon as possible Disposition Disposition: Home, Self Care Discharge Date/Time: 06/06/21 20:26
[2021-06-06 19:32] LABS: ALB/GLOB Ratio 0.7 RATIO (0.9-2.4); AST(SGOT) 49 U/L (15-37); Alanine Aminotransfer ALT/SGPT 48 U/L (13-56); Albumin, Serum 3.2 g/dL (3.2-5.0); Alkaline Phosphatase 106 U/L (45-117); Anion Gap 4 (5-15); BUN 23 mg/dL (7-18); BUN/Creat Ratio 24.4 RATIO (10-20); Calcium,Total 9.6 mg/dL (8.5-10.1); Chloride 100 mmol/L (98-107); Creatinine, Serum 0.94 mg/dL (0.55-1.02); EST Glomerular Filtration Rate 62 mL/min (>60); Est Glom Filt Rate - Afr Amer 75 mL/min (>60); Estimated Creatinine Clearance 86.48 ml/min; Globulin 4.4 g/dL (2.2-4.2); Glucose 83 mg/dL (74-106); Potassium 3.6 mmol/L (3.5-5.1); Protein, Total 7.6 g/dL (6.4-8.2); Sodium Level 138 mmol/L (136-145)
[2021-06-06] MEDS: HYDROcodone Bitartrate/Apap 5/325 Tablet PO (19:41)
[2021-06-06 19:45] LABS: Differential Comment SCANNED; Differential Indicated SCAN CRITERIA MET
--- NOTE | 2021-06-06 19:58 | RAD_ITS ---
STUDY: X-RAY - RIGHT ANKLE REASON FOR EXAM: Female, 70 years old. ankle pain TECHNIQUE: 3 view(s) of the ankle. COMPARISON: None. FINDINGS: Obliquely oriented fracture through the distal shaft of fibula with very mild separation of fracture fragments. There is also acute fracture of the medial aspect of the distal tibial plafond with very mild separation of fracture fragments.. Normal medial and lateral malleoli. Normal tibiotalar articulation and ankle mortise. Normal visualized talus and calcaneus. The visualized subtalar, talonavicular, calcaneocuboid and tarsal articulations are normal. Postop change status post ORIF and casting of distal tibial and fibular fractures. RAD/Ankle min 3 Views IMPRESSION: Status post ORIF and casting of distal tibial and fibular fractures with fracture fragments in near anatomic alignment and position Electronically Signed: Jimbo Palencia MD at 21:35 EDT , Service support ,
--- NOTE | 2021-06-06 20:16 | ED.RN ---
PT STATES INSULIN PUMP READING BGS OF 50. CRACKERS AND PB GIVEN TO PATIENT, REFUSING JUICE AT THIS TIME. WILL CONTINUE TO MONITOR.
[2021-06-06 20:24] VITALS: BP 96/82; PULSE 65; RESP 22; TEMP 36; O2SAT 95
[2021-06-06 20:31] LABS: Bedside Glucose 84 mg/dL (70-110)
== END 2021-06-06 20:26 | disposition home or self-care (01) ==
LOC: ED 19:55
PROVIDERS: Emergency Provider Student in an Organized Health Care Education/Training Program; PCP Internal Medicine
DX: S82.891A Other fracture of right lower leg, initial encounter for closed fracture (principal); S92.351A Displaced fracture of fifth metatarsal bone, right foot, initial encounter for closed fracture; X58.XXXA Exposure to other specified factors, initial encounter; Y93.9 Activity, unspecified; Y92.89 Other specified places as the place of occurrence of the external cause; Y99.9 Unspecified external cause status; E11.36 Type 2 diabetes mellitus with diabetic cataract; E11.40 Type 2 diabetes mellitus with diabetic neuropathy, unspecified; E11.65 Type 2 diabetes mellitus with hyperglycemia; E78.1 Pure hyperglyceridemia; E78.5 Hyperlipidemia, unspecified; F32.9 Major depressive disorder, single episode, unspecified; F41.9 Anxiety disorder, unspecified; G47.33 Obstructive sleep apnea (adult) (pediatric); I25.10 Atherosclerotic heart disease of native coronary artery without angina pectoris; I50.30 Unspecified diastolic (congestive) heart failure; I27.21 Secondary pulmonary arterial hypertension; I11.0 Hypertensive heart disease with heart failure; J45.909 Unspecified asthma, uncomplicated; K58.9 Irritable bowel syndrome, unspecified; E66.01 Morbid (severe) obesity due to excess calories; Z68.41 Body mass index [BMI] 40.0-44.9, adult; Z79.4 Long term (current) use of insulin; Z79.51 Long term (current) use of inhaled steroids; Z79.82 Long term (current) use of aspirin; Z87.891 Personal history of nicotine dependence
CPT/HCPCS: 73610; 73630; 80053; 82962; 85025; 93005; 99285; A4216

== ENCOUNTER → 2021-06-07 16:10 | Outpatient (CLI) | payer MEDICARE, OTHER, SELFPAY ==
[2018-11-03 13:03] VITALS: BMI 44.2
[2021-06-07 16:43] LABS: Absolute Lymphocyte Count 2.38 X10^3/uL (0.83-4.51); Absolute Neutrophil Count 6.7 X10^3/uL (2.0-7.7); Basophil# 0.04 X10^3/uL; Basophil% 0.4 % (0-1); Eosinophil# 0.26 X10^3/uL; Eosinophils% 2.5 % (0-5); Hemoglobin 11.1 g/dL (12.0-15.0); Lymphocyte # 2.38 X10^3/ul (0.83-4.51); Lymphocyte % 23.2 % (19-41); Mean Corp Hgb Conc 30.8 g/dL (32-36); Mean Corpuscular Hgb 29.9 pg (27.0-32.0); Mean Platelet Vol. 11.7 fl (6.2-12.0); Monocyte# 0.89 X10^3/uL; Monocyte% 8.7 % (0-10); NRBC Flagged by Analyzer 0 % (0-5); Neutrophil # 6.66 X10^3/uL (2.7-7.7); Neutrophil % 64.7 % (47-70); Platelet Count 160 K/mm3 (150-450); RBC Distribution Width CV 13.6 % (11.6-14.6); Red Blood Count 3.71 M/mm3 (4.2-5.4); White Blood Count 10.3 K/mm3 (4.4-11.0)
[2021-06-07 16:54] LABS: Hemoglobin A1c 9.7 % (3.8-5.6)
--- NOTE | 2021-06-07 16:59 | RAD_ITS ---
STUDY: X-RAY CHEST REASON FOR EXAM: Female, 70 years old. pre-operative clearance TECHNIQUE: PA and lateral views of the chest. COMPARISON: 12/10/2020 FINDINGS: The lungs are clear and expanded. There is no demonstrated pleural abnormality. Normal size heart. Normal mediastinum and diandra. Normal visualized pulmonary arteries. Normal visualized aortic arch and descending thoracic aorta. Normal visualized thoracic spine. Normal visualized ribs, clavicles, and shoulders. There is no demonstrated abnormality of the visualized soft tissue structures of the upper abdomen. RAD/Chest PA and Lateral IMPRESSION: Normal x-ray examination of the chest. Electronically Signed: Lupillo Wolf MD at 6:50 EDT Tel , Service support ,
[2021-06-07 17:06] LABS: ALB/GLOB Ratio 0.7 RATIO (0.9-2.4); AST(SGOT) 52 U/L (15-37); Alanine Aminotransfer ALT/SGPT 47 U/L (13-56); Albumin, Serum 3.3 g/dL (3.2-5.0); Alkaline Phosphatase 106 U/L (45-117); Anion Gap 5 (5-15); BUN 26 mg/dL (7-18); BUN/Creat Ratio 22.6 RATIO (10-20); Calcium,Total 9.4 mg/dL (8.5-10.1); Chloride 101 mmol/L (98-107); Creatinine, Serum 1.15 mg/dL (0.55-1.02); EST Glomerular Filtration Rate 49 mL/min (>60); Est Glom Filt Rate - Afr Amer 60 mL/min (>60); Globulin 4.5 g/dL (2.2-4.2); Glucose 74 mg/dL (74-106); Protein, Total 7.8 g/dL (6.4-8.2); Sodium Level 141 mmol/L (136-145)
== END ==
PROVIDERS: PCP Internal Medicine; Referring Provider Physician Assistant; Visit Provider Physician Assistant
DX: Z01.818 Encounter for other preprocedural examination (principal); J44.9 Chronic obstructive pulmonary disease, unspecified; E11.65 Type 2 diabetes mellitus with hyperglycemia; I50.32 Chronic diastolic (congestive) heart failure; E11.22 Type 2 diabetes mellitus with diabetic chronic kidney disease; N18.30 Chronic kidney disease, stage 3 unspecified; I13.0 Hypertensive heart and chronic kidney disease with heart failure and stage 1 through stage 4 chronic kidney disease, or unspecified chronic kidney disease; Z79.4 Long term (current) use of insulin
CPT/HCPCS: 36415; 71046; 80053; 83036; 85025

== ENCOUNTER → 2021-06-11 14:04 | Outpatient (CLI) | payer MEDICARE, OTHER, SELFPAY ==
[2018-11-03 13:03] VITALS: BMI 44.2
--- NOTE | 2021-06-11 14:05 | CT_ITS ---
STUDY: CT RIGHT ANKLE WITHOUT CONTRAST REASON FOR EXAM: Female, 70 years old. ANKLE PAIN. Bimalleolar fractures. RADIATION DOSAGE (If Supplied By Facility): CTDIvol = ( 15.35 ) mGy, DLP = ( 399.82 ) mGycm TECHNIQUE: Thin section transaxial imaging of the ankle was obtained, with sagittal and coronal reconstructed images. Individualized dose optimization techniques were used for this CT. COMPARISON: Comparison is made with prior radiograph dated 06/06/2021. FINDINGS: There is evidence of a comminuted oblique oriented fracture through the distal shaft of the fibula. There is minimal separation of the fracture fragments. No evidence of an avulsion fracture of the medial malleolus as well as an avulsion fracture of the posterior malleolus of the distal tibia. Normal talus, calcaneus, navicular and cuboid tarsal bones. Normal subtalar, talonavicular and calcaneocuboid articulations. Normal navicular-cuneiform, cuneiform tarsal bones and intercuneiform articulations. Normal tarsometatarsal articulations and visualized metatarsi. Soft tissue swelling. CT/Extremity Lower without Contra IMPRESSION: Comminuted slightly displaced fracture of the distal fibular shaft. Avulsion fracture of the medial malleolus as well as the posterior malleolus of the posterior malleolus of the distal tibia. Soft tissue swelling. Electronically Signed: Everardo Rivas MD at 15:15 EDT , Service support ,
== END ==
PROVIDERS: PCP Internal Medicine; Referring Provider Podiatrist; Visit Provider Podiatrist
DX: S82.841A Displaced bimalleolar fracture of right lower leg, initial encounter for closed fracture (principal); M25.571 Pain in right ankle and joints of right foot
CPT/HCPCS: 73700

== ENCOUNTER 2021-06-13 07:34 | Inpatient (IN) | payer MEDICARE, OTHER, SELFPAY ==
[2018-11-03 13:03] VITALS: BMI 44.2
[2021-06-13] VITALS (10 sets, daily range): BP systolic 127–182; BP diastolic 50–87; PULSE 61–97; RESP 16–24; TEMP 36.1–36.9; O2SAT 94–100; BMI 45.9
[2021-06-13 06:25] LABS: Bedside Glucose 131 mg/dL (70-110)
--- NOTE | 2021-06-13 07:24 | RAD_ITS ---
STUDY: X-RAY - RIGHT ANKLE REASON FOR EXAM: Intraoperative fluoroscopy for ORIF of trimalleolar fracture. TECHNIQUE: 12 intraoperative images and a cine loop of the ankle. COMPARISON: Radiographs 06/06/2021. FINDINGS: There is an orthopedic plate and screws transfixing a distal fibular fracture in anatomical alignment and position, orthopedic screws transfixing a medial malleolar fracture, and syndesmotic fixation. 236.1 seconds of fluoroscopy time was used. Electronically Signed: Moy Sarmiento MD at 13:51 EDT Tel , Service support , RAD/Ankle 2 Views
--- NOTE | 2021-06-13 07:32 | HP.PCM_ITS ---
[facility] - General General Date of Admission: 06/13/21 Date of Service: 06/13/21 Chief Complaint: ankle fracture HPI Narrative BIMAL STOKES, is a 70 F with multiple comorbidities (uncontrolled diabetes with A1C 9.4%, sleep apnea, coronary artery disease, EF 60%, murmer, h/o stroke, hypertension, hyperlipidemia, IBS, morbid obesity, anxiety, depression, COPD, prior smoking history, and pulmonary hypertension) sustained a right unstable ankle fracture on 06/05/21. She is unable to bear weight and is at risk for further falling. She is admitted postoperative for medical management, therapy assessment, and pain control. [facility] Medical History (Updated 06/13/21 @ 11:[address] Leslie Palmer, [place]) Anxiety Anxiety and depression Arthritis Asthma Atherosclerosis of coronary artery of [place] heart without angina pectoris Atherosclerotic heart disease of [place] coronary artery without angina pectoris Back problem BiPAP (biphasic positive airway pressure) dependence Cancer Cardiac murmur Cardiology follow-up encounter Cataracts, bilateral Chronic headaches COPD (chronic obstructive pulmonary disease) CVA (cerebral vascular accident) Depression Diabetes Diastolic CHF Essential (primary) hypertension Excessive bleeding Exertional shortness of breath Former smoker Gallstones Gastric reflux GI problem High cholesterol High triglycerides History of echocardiogram History of edema History of stress test Hives Hyperlipidemia Hypertension IBS (irritable bowel syndrome) Insulin dependent diabetes mellitus Migraine headache Morbid obesity with BMI of 40.0-44.9, adult Neuropathy Nicotine dependence On home oxygen therapy CIARRA (obstructive sleep apnea) Pancreatitis Pulmonary hypertension Routine health maintenance Secondary pulmonary arterial hypertension Skin tags, multiple acquired Sleep apnea Uncontrolled type 2 diabetes mellitus Uses wheelchair UTI (urinary tract infection) Vision problem Wears dentures Wears glasses Home Medications albuterol sulfate 90 mcg/actuation aerosol inhaler 2 puff INHALATION Q6H PRN 07/21/18 [History Last Taken 09/29/18 08:00] calcium citrate 200 mg (950 mg) tablet 400 mg PO QHS tab 07/21/18 [History Last Taken 11/02/18 21:00] omega-3 fatty acids 500 mg capsule 500 mg PO BID cap 07/21/18 [History Last Taken 11/02/18 08:00] magnesium oxide 400 mg PO QHS 09/29/18 [History Last Taken 11/02/18 21:00] multivitamin with minerals 1 tab PO DAILY 09/29/18 [History Last Taken 11/02/18 08:00] albuterol sulfate 2.5 mg INHALATION Q6H PRN PRN #120 vial 10/01/18 [Rx Last Taken 09/21/18 08:00] nitroglycerin 0.3 mg sublingual tablet 0.3 mg SUBLINGUAL Q5-15M PRN 10/21/18 [History Last Taken Unknown] aspirin 81 mg tablet,delayed release 81 mg PO DAILY 10/26/18 [History Last Taken 06/11/21] flash glucose scanning reader #1 ea 07/01/19 [Rx Last Taken Unknown] flash glucose sensor #4 ea 07/01/19 [Rx Last Taken Unknown] insulin syringe-needle U-100 0.5 mL 31 gauge x 5/16 #100 ea 09/29/19 [Rx Last Taken Unknown] montelukast 10 mg tablet 10 mg PO QHS #90 tab 11/19/20 [Rx Last Taken Unknown] furosemide 40 mg tablet 40 mg PO DAILY tab 01/21/21 [History Last Taken Unknown] insulin regular hum U-500 conc 55 - 160 unit SUBCUT TID ml 01/21/21 [History Last Taken Unknown] amitriptyline 25 mg tablet 25 mg PO QHS #90 tab 02/19/21 [Rx Last Taken 06/11/21] fenofibrate 54 mg tablet 108 mg PO DAILY #180 tab 03/01/21 [Rx Last Taken Unknown] trimethoprim 100 mg tablet 100 mg PO DAILY 03/01/21 [History Last Taken Unknown] clopidogrel 75 mg tablet 75 mg PO DAILY #90 tab 03/04/21 [Rx Last Taken 06/08/21] rosuvastatin 5 mg tablet 5 mg PO DAILY #90 tab 03/04/21 [Rx Last Taken 06/11/21] pen needle, diabetic 32 gauge x 5/32 #300 each 04/12/21 [Rx Last Taken Unknown] hydrocodone-acetaminophen 1 tab PO Q6H PRN 7 Days #28 tab 06/07/21 [Rx Last Taken Unknown] budesonide-formoterol [Symbicort] 2 puff INHALATION BID 06/11/21 [History Last Taken Unknown] atenolol 25 mg PO 1500 06/12/21 [History Last Taken 06/12/21 15:00] losartan 50 mg PO 1500 06/12/21 [History Last Taken 06/12/21 15:00] Allergy/AdvReac Type Severity Reaction Status Date / Time ciprofloxacin Allergy Severe Hives Verified 06/13/21 06:38 clindamycin Allergy Severe Hives Verified 06/13/21 06:38 codeine Allergy Severe Itching Verified 06/13/21 06:38 formoterol [From Dulera] Allergy Severe Unknown Verified 06/13/21 06:38 mometasone furoate Allergy Severe Unknown Verified 06/13/21 06:38 [From Dulera] Penicillins Allergy Severe Hives Verified 06/13/21 06:38 Sulfa (Sulfonamide Allergy Severe Hives Verified 06/13/21 06:38 Antibiotics) fluticasone Allergy Unknown Unknown Verified 06/13/21 06:38 [From Advair Diskus] gemfibrozil [From Lopid] Allergy Unknown Unknown Verified 06/13/21 06:38 metformin Allergy Unknown Upset Verified 06/13/21 06:38 Stomach oxycodone [From Percocet] Allergy Unknown Rash Verified 06/13/21 06:38 salmeterol Allergy Unknown Unknown Verified 06/13/21 06:38 [From Advair Diskus] Family History Mother Asthma Arthritis Hypertension Grandmother Cancer Brother Diabetes Heart disease Hypertension Father Heart disease Hypertension Surgical History (Updated 06/11/21 @ 12:49 by Deidre Armijo) H/O: H/O: hysterectomy History of cardiac catheterization History of coronary artery stent placement History of right cataract extraction Hx of cataract surgery Hx of cholecystectomy Stented coronary artery (11/03/18) Social History Smoking Status: Former smoker Tobacco: How many years used: 50 how long ago did patient quit smokin, 1ppd second hand exposure: Yes alcohol intake: never substance use type: does not use ROS Constitutional Constitutional: Reports frequent falls and lethargy; Denies chills or fever(s) ENT HEENT: Denies sore throat Respiratory/Chest Respiratory/Chest: Reports dyspnea and dyspnea on exertion; Denies cough Genitourinary Genitourinary: Reports low back pain and urinary frequency Musculoskeletal Musculoskeletal: Reports numbness Integumentary Integumentary: Denies erythema or wounds Psychiatric Psychiatric: Reports anxiety Hematologic/Lymphatic Hematologic/Lymphatic: Denies easy bleeding Vital Signs Vital Signs Vital Signs: 06/13/21 06:40 06/13/21 06:48 Temperature 97 F L Temperature Source Temporal Pulse Rate 85 Respiratory Rate 22 H Respiratory Pattern Tachypnea Blood Pressure 148/70 H Blood Pressure Mean 96 Blood Pressure Source Monitor Blood Pressure Position Semi-Fowlers Blood Pressure Location Left Arm Pulse Ox 100 Oxygen Delivery Method Nasal Cannula Oxygen Flow Rate (L/min) 4 Weight Weight: 99.79 kg Body Mass Index (BMI) 45.9 Physical Exam Const alert and oriented x3 General Appearance: cooperative and anxious HEENT normocephalic and moist oral mucous membranes Chest inspection of chest normal Resp Auscultation: wheezes and diminished lung sounds Extremity no calf tenderness Extremity Narrative: Right lower extremity surgical limb is in a rectus position and splint which is clean dry and intact. Active range of motion of the proximal right limb noted. Peripheral Pulses: Yes dorsalis pedis pulses present Skin Skin Narrative: Postoperative dressing in place without strikethrough or adjacent streaking Neuro oriented x3 Neuro Narrative: Lack of epicritic sensation light touch to toes consistent with neuropathic status right lower extremity Psych cooperative Activity / Motor Behavior: restless Mood & Affect: anxious Results Lab / Micro Data Labs: Laboratory Results - last 24 hr 06/13/21 06:20: POC Glucose 131 H Assessment & Plan Assessment/Plan (1) Walking difficulty due to ankle and foot: (2) Left ankle pain: (3) Closed right trimalleolar fracture: PLAN: The patient tolerated the procedure and anesthesia well this morning. The patient was transported to the PACU with vital signs stable and vascular status intact to the surgical limb. To ice and elevate for pain and inflammation management. Postoperative x-rays were reviewed prior to leaving the operating room. Deformity and fracture correction noted with hardware in desired position and trajectory. No acute injuries are noted. She was admitted postoperative for pain control, medical management, and placement consideration. She also needs to work with physical and occupational therapy to confirm if she is safe to return home or if she would be a potential rehabilitation candidate pending bed availability; this was confirmed preoperatively. To maintain strict nonweightbearing status of right lower extremity with assistive device. To ice and elevate for pain and inflammation management. Oral and IV pain medications were ordered. Her multiple allergies are noted. She reports she tolerated morphine ok in the past but in a lower dosage. To use incentive spirometer. DVT prophylaxis pharmacological medications will be ordered tomorrow after hemostasis continues to remain controlled. To optimize healing with nutritional supplementation. Screening for D deficiency will be performed to determine if supplementation is pertinent. She is multiple comorbidities and is at risk for healing complications. This is a limb salvage surgery. Hospitalist will be asked to be on consultation for medical management and this is greatly appreciated. Reviewed case with Dr. Houston; input appreciated. Postoperative orders were entered electronically. Please do not hesitate to call if you have any questions. I will follow her closely while in house. Leslie Palmer DPM, [facility] [phone]
--- NOTE | 2021-06-13 10:51 | PCM.OPRPT ---
Problems Associated Problem List Diagnoses (1) Closed right trimalleolar fracture: (2) Left ankle pain: (3) Walking difficulty due to ankle and foot: Report of Operation Date of Procedure: 06/13/21 Pre-Operative Diagnosis: Right try malleolus ankle fracture Post-Operative Diagnosis: Right trimalleolus ankle fracture Surgery/Procedure Performed:: Open reduction internal fixation right trimalleolar ankle fracture Description of Surgical Findings:: Hemostasis: Well-padded pneumatic right thigh tourniquet, 350 mmHg, 115 minutes Materials: 2-0 Vicryl, 2-0 and 3-0 nylon, 1 Arthrex reconstructive fibular plate (12 hole), four 3.5 cortical screws, one 3.5 cancellous screw, four 3.5 locking screws, one 4.0 long thread partially-threaded screw, one 3.0 short thread partially threaded screw, one k-wire, one syndesmotic tight rope The patient tolerated the procedure and anesthesia well. The patient was transported to the PACU with vital signs stable and vascular status intact to the surgical limb. To ice and elevate for pain and inflammation management. Postoperative x-rays were reviewed prior to leaving the operating room. This demonstrated adequate fracture deformity reduction with internal fixation and desired trajectory and position. Stress ankle syndesmotic tests were performed including cotton test, dorsiflexion external rotation, and hindfoot eversion with no additional gross instability. No additional acute injuries are noted. Postoperative orders were entered electronically. She will be admitted for medical management, pain control, and for consideration of temporary jail facility placement. Surgeon: Leslie Palmer Type of Anesthesia: Block,Regional and Spinal Specimen's removed: none Drains: none Estimated Blood Loss (mL): 75 mL Description of Procedure: Indications: This 70 year old female with multiple comorbidities (uncontrolled diabetes with A1C 9.4%, sleep apnea, coronary artery disease, EF 60%, murmer, h/o stroke, hypertension, hyperlipidemia, IBS, morbid obesity, anxiety, depression, COPD, prior smoking history, and pulmonary hypertension) sustained a right unstable ankle fracture on 06/05/21. She is unable to bear weight. She was seen in the emergency room setting and follow-up with clinical center in which she was splinted with a posterior mold splint cellulitis after reduction was performed. She had a dopplerable DP pulse and capillary fill time less than 3 seconds to all digits skin is atrophic. Her neurological status is decreased due to her neuropathic condition. X-rays demonstrated comminuted multi segment extended fibula fracture pattern to the posterior medial free piece. Medial malleolus fracture identified. CT scan confirmed and also clarifies and comminution with fibula and medial malleolus fracture fragments. There is also a posterior lateral fracture that is 10% of the articular surface. Evidence of syndesmosis injury proximal to the ankle joint level is suspected. The preoperative indications, planned procedure, possible benefits, risks, complications, and anticipated healing time and management were discussed in detail the patient. She understands and elects to proceed with surgery at this time. She understands complications may include but are not limited to the following: Pain, swelling, scarring, delayed or non-healing of the skin or bone, hardware failure, infection, under or overcorrection, need for additional surgery, blood clot, allergic reaction, loss of limb, function, life, numbness, chronic pain syndrome. Medical clearance was obtained by her primary care physician (Dr. Asencio) as well as her director of ancillary services (Dr. Lim). She is higher risk due to her hemoglobin A1c over 9%. Her ejection fraction is noted to be at 60%. This is a limb salvage case when she is at risk for complications and weight loss. Her preoperative diagnostic data was reviewed and without gross abnormalities. She held plavix for five days. The patient also understands there is an inherent risk with being in the hospital and undergoing a procedure during the time of COVID-19 pandemic. The patient understands precautions are being taken to prevent transmission. This patient understands the benefits and risks of having a procedure at this time versus waiting in which the benefits are reasonable at this time. I answered all her questions. The informed surgical consent and the surgical limb were signed. Procedure in detail: The patient was transferred to the operating room via cart and placed on the operating table in supine position. Final verification of the patient, surgery, and limb designation was performed via the timeout procedure. A well-padded pneumatic thigh tourniquet was placed on the right lower extremity. The patient was given IV Ancef prior to the surgical procedure initiation. Spinal anesthesia was initiated by the anesthesia team. A right lower extremity regional block including popliteal and adductor canal was provided by anesthesia team. Upon splint removal, it is noted she does have fracture blisters to the anterior ankle and also to the medial heel area. The fracture blisters only obtain serous drainage and does not appear to interfere with incision placement. There is no necrosis. The right lower extremity was prepped and draped in the usual aseptic manner. Exsanguination was performed with an Esmarch bandage and the tourniquet was inflated at this time. Attention was first directed to the lateral aspect of the ankle in which a 10 cm linear incision was made through the skin. Blunt dissection was performed down to the fracture fragment taking care to preserve the periosteum. The fracture hematoma was identified and the fracture site was gently mobilized. Bone reducing forceps were used to obtain anatomic reduction. One 3.5 cortical screws were applied perpendicular to the proximal fracture fragment utilizing lag technique and proper AO fixation techniques to achieve solid fracture fixation and improved stability. Intraoperative fluoroscopy was utilized to confirm appropriate episcopalian of the fibular length and rotational position. The distal fibula reconstructive tubular plate was next applied and secured with screws to the distal lateral malleolus (cancellous, cortical, and locking). Additional locking and nonlocking screws were applied via the plate proximal to the fracture fragments to span the entire fracture fragments to hold the communited distal fragment out to length in a stable manner (buttress/ neutralization techniques). All reduction clamps were removed and this fracture was fixated in a stable manner moved as one solid unit. Next, attention was directed to the medial malleolus in which a small stab incision was made in the skin and the fracture fragment was percutaneously gently mobilized. Intraoperative fluoroscopy was used to confirm improved rectus mortise alignment in multiple views. This was next secured in place with one 4.0 and one 3.0 cannulated screws. Her bone was relatively soft and the screws however solid fixation was achieved as the screws were applied. Solid fixation was achieved clinically. An additional free k wires was also applied for rotation prevention. It was noted from preop CT scan that this fracture fragment did have some comminution. Radiographically all hardware was checked and the desired trajectory, length, and position with fixated fracture position was confirmed. There are some instability of the syndesmosis suspected per preoperative imaging and also with dorsiflexion external rotation of the ankle stress test. An Arthrex syndesmosis tightrope was applied according standard protocol and this was tightened according to hand tightness with notable deformity correction. Intraoperative fluoroscopy was used to confirm proper placement and maintained reduction. It is noted the fibula is out to length and there is improved to fibula and tibia overlap. Additional intraoperative live syndesmotic stress maneuvers were performed as documented. Again, improved alignment was achieved radiographically and clinically. All wound sites were irrigated with normal saline. Deep closure was achieved with 2-0 Vicryl to cover all hardware. The tourniquet was deflated and brisk capillary refill time was noted to all digits of the right lower extremity. No pulsatile bleeding was noted. Pressure was applied to maintain hemostasis and minimal electrocauterization was needed. Deep closure was achieved with 2-0 and 3-0 Vicryl. The skin was reapproximated with 2-0 and 3-0 nylon utilizing no touch technique with simple and horizontal mattress techniques. A postoperative dressing consisting of Adaptic, gauze, abdominal pads, Kerlix, sterile webril, and Kerlix was applied in a protective manner. Next, a posterior mold splint was applied with the foot and ankle in a rectus position and this was secured gently with Gabriel wraps. After procedure: The patient tolerated the procedure and anesthesia well. She was transported to the PACU with vital signs stable and vascular status intact to the right lower extremity. She will be transferred back to the medical surgical floor upon continued stability for pain control and medical management. All of her postoperative orders were entered electronically. She was advised to maintain a strict nonweightbearing right lower extremity status. To ice and elevate for pain and inflammation management. Additional oral and IV pain medications were ordered. Medical management, DVT prophylaxis, and pain management per primary team is appreciated. She will resume plavix likely tomorrow. Rehabilitation placement is highly recommended and this is in process pending PT/OT evaluation. I recommend nutritional supplementation, Amos. Vitamin D level screening will also be performed to see if supplementation is pertinent to optimize healing. This case will also be discussed with the admitting hospitalist. All of her postoperative orders were entered electronically. Leslie Palmer DPM, [facility] Complications none Admit VTE Documentation VTE Present on Admission: No VTE Mechan Device Prophylaxis: SCD's VTE Pharm Prophylaxis ordered?: Yes
[2021-06-13 11:51] LABS: Bedside Glucose 230 mg/dL (70-110)
[2021-06-13] MEDS: Morphine 4 MG/ML Syringe IV ×2 (12:46→15:37)
[2021-06-13 13:21] LABS: Bedside Glucose 223 mg/dL (70-110)
[2021-06-13 14:07] LABS: Vitamin D,25 Hydroxy 29.1 ng/mL
--- NOTE | 2021-06-13 14:45 | CASEMGMT ---
Social Work RNCM reporting pt is requesting to go to TCU at time of discharge for continued therapy prior to return home with her spouse. VM left with Keyla in TCU with referral. SW will await determination. TAVIA Loyd
--- NOTE | 2021-06-13 15:06 | CASEMGMT ---
SLAVA BAILEY Face to Face with patient for initial transition planning/care coordination assessment. SLAVA BAILEY introduced self and role at [facility]. Patient sitting in chair, alert and oriented. Patient willing to participate in assessment and is able to answer all questions appropriately. Care providers, pharmacy, and demographics verified. Patient wishes to discharge to home but is willing to go to TCU if recommended and bed available. SNF list provided to patient. Patient states he has no further needs or concerns at this time. SLAVA BAILEY updated SW regarding request for TCU. CM to follow for discharge planning needs that may arise. PCP: Elif Specialists: Spencer, salesperson burial needs; Raphale, nerve specialist; Tien, fbi special agent [facility]acy: [facility] Insurance: [employer] at [employer], [employer] other Prescription Benefit: yes Living Will/HPOA: none LNOK: Living Arrangements: Patient lives with in a 3 story home. Patient currently staying in walkout basement. Patient states that has been assisting with ADLs Transportation: DME/HHC: patient states she has shower chair, BSC, walker, wheelchair, bipap, home oxygen 4lpm with portability through [employer]. Patient denies previous HHC or SNF. Disposition Plan: TCU pending acceptance. Maria M UNDERWOOD, RN, CM
[2021-06-13] MEDS: Acetaminophen 325 MG Tablet PO (15:07)
--- NOTE | 2021-06-13 15:28 | PN.HOSP_ITS ---
Documented by User: Shirley Leonard NP, FUNCTIONAL MENTAL DISABILITY TEACHER-C 06/13/21 15:46 Subjective Subjective Patient seen and examined. Underwent ORIF right trimalleolar ankle fracture. Reports significant pain. Patient appears dyspneic, she states she is short of breath at baseline however feels her breathing is worse secondary to pain. Objective Data Objective Data Vital Signs: Vital Signs Temp Pulse Resp BP Pulse Ox 98.3 F 90 18 130/50 H 98 06/13/21 14:30 06/13/21 14:30 06/13/21 14:30 06/13/21 14:30 06/13/21 14:30 Oxygen Flow Rate (L/min) 3 Oxygen Delivery Method Nasal Cannula Weight: 220 lb Body Mass Index (BMI) 45.9 Intake & Output: Intake and Output for Last 24 Hours 06/11/21 06/12/21 06/13/21 23:59 23:59 23:59 Intake Total 530 / 530 Balance 530 / 530 Lab / Micro Data Labs: Laboratory Results - last 24 hr 06/13/21 06:20: POC Glucose 131 H 06/13/21 11:47: POC Glucose 230 H 06/13/21 13:12: POC Glucose 223 H 06/13/21 13:30: Vitamin D 25-Hydroxy 29.1 Radiography Diagnostic Testing: Radiology Impression Ankle X-Ray 06/13/21 07:24 Physical Exam Const alert, oriented x3 and no apparent distress Orientation / Consciousness: awake, oriented to person, oriented to place and oriented to time Nutritional Appearance: obese HEENT normocephalic and moist oral mucous membranes Eyes PERRL, EOMs intact bilaterally and conjunctivae normal Neck no lymphadenopathy Resp Effort and Inspection: tachypneic Auscultation: clear to auscultation bilaterally and diminished lung sounds Cardio regular rate, regular rhythm and no murmurs Peripheral Pulses: pulses 2+ throughout GI normal to inspection, nondistended, normoactive bowel sounds, non-tender and non-distended Extremity normal to inspection Extremity Narrative: Right lower extremity postop dressing intact Skin no rashes or lesions noted Lesions: no lesions Rashes: no rashes Trauma: no lacerations or abrasions Neuro CN's II-XII intact bilaterally, no focal motor deficits, no sensory deficits noted and deep tendon reflexes 2+ bilaterally Psych mental status grossly normal and affect normal Assessment & Plan Assessment/Plan (1) Closed right trimalleolar fracture: PLAN: 1. Right trimalleolus ankle fracture status post ORIF-management per podiatry. Pain currently uncontrolled. Will adjust pain regimen. PT/OT. 2. Type 2 diabetes [id number] with sliding scale insulin. Continue home insulin regimen. 3. Hypertension-stable, continue current regimen. 4. Chronic hypoxic respiratory failure, pulmonary arterial hypertension/severe COPD/CIARRA-continue supplement oxygen to maintain O2 sat above 90%. 5. Morbid obesity-diet and lifestyle modifications encouraged. 6. Chronic heart failure with preserved ejection fraction-stable, continue home diuretic regimen. DVT prophylaxis-SCDs, pharmacologic prophylaxis if okay per podiatry This patient was seen by TYRELL Esteves under the supervision of Dr. Houston. Documented by User: Dr. Modesta Houston MD 06/13/21 17:29 Charges/Coding Addendum Addendum: This patient was seen in conjunction with Shirley Leonard. I have independently interviewed and examined the patient and reviewed pertinent historical, laboratory, and other data. I have reviewed her note and concur with her documentation 70-year-old female with multiple comorbidities including morbid obesity, type II DM, poorly controlled, CIARRA, CAD, hypertension, hyperlipidemia who presented for elective right trimalleolar a right unstable ankle fracture on 06/05/21. fracture repair. Patient has sustained We were consulted for postop management. At the time of being seen, patient complains of shortness of breath and uncontrolled pain. Physical Exam: Gen: Looks in some discomfort, morbidly obese, not pale, not jaundiced CVS:HS I +II, regular, no murmurs RESP: Diminished at lung bases GI: BS present and normal, soft, nontender, no palpable organs EXT: Right leg in cast and Gabriel wraps ASSESSMENT: 1. Postop day #0 status post right trimalleolar ankle fracture ORIF 2. Type II DM 3. Hypertension 4. Chronic hypoxic respiratory failure 5. Pulmonary hypertension 6. COPD/CIARRA 7. Morbid obesity Plan: Continue on oxygen, wean off oxygen Continue rest of home medications Continue pain control Repeat blood work in a.m. Visit Charges Inpatient E&M: 67976 Init Hosp L3
--- NOTE | 2021-06-13 15:30 | NURSING ---
PT RESTING IN CHAIR. REPORTS NEED TO URINATE. ATTEMPTED TO GET TO BSC. PT WITH MUCH ANXIETY- DYSPNEA, TEARS, CRYING. ASSISTED PT TO BED INSTREAD OF BSC. PT TOOK SEVERAL MINUTES TO CALM DOWN. ONCE CALM MORPHINE ADMIN PER REQUEST FOR PAIN, PUREWICK PLACED SO PT CAN VOID. WILL CONTINUE TO MONITOR.
--- NOTE | 2021-06-13 16:42 | NURSING ---
EMERGENCY DOCUMENTATION
[2021-06-13 16:45] LABS: Bedside Glucose 403 mg/dL (70-110)
[2021-06-13] MEDS: 0.9% Saline Lock 10 ML Syringe IV ×2 (19:53→22:08)
[2021-06-13] MEDS: HYDROmorphone 1 MG/ML Syringe IV ×2 (19:53→22:08)
[2021-06-13] MEDS: Insulin U-500 UNITS/ML PEN 55 UNITS SC (21:17)
[2021-06-13] MEDS: Amitriptyline 25 MG Tablet PO (21:19)
[2021-06-13] MEDS: Atorvastatin Calcium 10 MG Tablet PO (21:19)
[2021-06-13] MEDS: Montelukast 10 MG Tablet PO (21:20)
[2021-06-13] MEDS: Omega-3 Acid Ethyl Esters 1 GM Capsule PO (21:20)
[2021-06-13] MEDS: Insulin Lispro 100 UNIT/ML INSULN.PEN SC (21:22)
[2021-06-13 21:30] LABS: Bedside Glucose 480 mg/dL (70-110)
[2021-06-13] MEDS: ALPRAZolam 0.25 MG Tablet PO (22:11)
[2021-06-14] MEDS: HYDROmorphone 1 MG/ML Syringe IV ×3 (03:22→12:07)
[2021-06-14] MEDS: 0.9% Saline Lock 10 ML Syringe IV (03:24)
[2021-06-14 03:50] VITALS: BP 112/54; PULSE 85; RESP 22; TEMP 36.5; O2SAT 97
[2021-06-14 05:17] LABS: Absolute Lymphocyte Count 1.14 X10^3/uL (0.83-4.51); Absolute Neutrophil Count 7.6 X10^3/uL (2.0-7.7); Basophil# 0.01 X10^3/uL; Basophil% 0.1 % (0-1); Eosinophil# 0.01 X10^3/uL; Eosinophils% 0.1 % (0-5); Hematocrit 30.2 % (37-47); Hemoglobin 9.3 g/dL (12.0-15.0); Lymphocyte # 1.14 X10^3/ul (0.83-4.51); Lymphocyte % 11.7 % (19-41); Mean Corp Hgb Conc 30.8 g/dL (32-36); Mean Corpuscular Hgb 29.4 pg (27.0-32.0); Mean Corpuscular Volume 95.6 fL (81-99); Mean Platelet Vol. 12.3 fl (6.2-12.0); Monocyte# 0.89 X10^3/uL; Monocyte% 9.1 % (0-10); NRBC Flagged by Analyzer 0 % (0-5); Neutrophil # 7.62 X10^3/uL (2.7-7.7); Neutrophil % 78.4 % (47-70); POSITIVE COUNT YES; Platelet Count 116 K/mm3 (150-450); RBC Distribution Width CV 13.6 % (11.6-14.6); RBC Distribution Width SD 47.9 fl (35.1-43.9); Red Blood Count 3.16 M/mm3 (4.2-5.4); White Blood Count 9.7 K/mm3 (4.4-11.0)
[2021-06-14 05:29] LABS: Differential Indicated SCAN CRITERIA MET
[2021-06-14 05:55] LABS: ALB/GLOB Ratio 0.6 RATIO (0.9-2.4); AST(SGOT) 35 U/L (15-37); Alanine Aminotransfer ALT/SGPT 34 U/L (13-56); Albumin, Serum 2.6 g/dL (3.2-5.0); Alkaline Phosphatase 88 U/L (45-117); Anion Gap 4 (5-15); BUN 31 mg/dL (7-18); Calcium,Total 8.3 mg/dL (8.5-10.1); Chloride 97 mmol/L (98-107); EST Glomerular Filtration Rate 58 mL/min (>60); Est Glom Filt Rate - Afr Amer 70 mL/min (>60); Estimated Creatinine Clearance 81.29 ml/min; Globulin 4.3 g/dL (2.2-4.2); Glucose 430 mg/dL (74-106); Potassium 5.7 mmol/L (3.5-5.1); Protein, Total 6.9 g/dL (6.4-8.2); Sodium Level 129 mmol/L (136-145)
[2021-06-14 06:30] LABS: Platelet Morphology CLUMPED
[2021-06-14 06:31] LABS: Platelet Estimate ADEQUATE (ADEQ)
--- NOTE | 2021-06-14 07:10 | RAD_ITS ---
STUDY: X-RAY CHEST REASON FOR EXAM: Female, 70 years old. sob TECHNIQUE: Single AP portable view of the chest. COMPARISON: 06/07/2021 FINDINGS: The lungs are clear and expanded. There is no demonstrated pleural abnormality. There is moderate cardiac enlargement. Prominent hilum of the right lung worrisome for right hilar mass or lymphadenopathy. Correlation with CT the chest with contrast is recommended. Normal visualized pulmonary arteries. Normal visualized aortic arch and descending thoracic aorta. Normal visualized thoracic spine. Normal visualized ribs, clavicles, and shoulders. There is no demonstrated abnormality of the visualized soft tissue structures of the upper abdomen. RAD/Chest 1 View (Portable) IMPRESSION: Suspect right hilar mass or lymphadenopathy in correlation with CT of the chest with contrast is recommended. Electronically Signed: Lupillo Wolf MD at 8:58 EDT Tel , Service support ,
[2021-06-14 07:26] VITALS: PULSE 78; RESP 18
[2021-06-14] MEDS: Albuterol 2.5 MG/3 ML VIAL.NEB. INHALATION (07:26)
[2021-06-14] MEDS: Insulin U-500 UNITS/ML PEN 55 UNITS SC (07:46)
[2021-06-14] MEDS: Insulin Lispro 100 UNIT/ML INSULN.PEN SC ×2 (07:47→12:03)
[2021-06-14] MEDS: Acetaminophen 325 MG Tablet 650 MG PO (07:50)
[2021-06-14] MEDS: Multivitamins,Ther W-Minerals Tablet 1 TABLET PO (07:56)
[2021-06-14] MEDS: Aspirin E.C. 81 MG Tablet PO (07:56)
[2021-06-14] MEDS: Magnesium Chloride 64 MG Delay Rel.Tablet 128 MG PO (07:56)
[2021-06-14] MEDS: Omega-3 Acid Ethyl Esters 1 GM Capsule PO (07:56)
[2021-06-14] MEDS: Furosemide 40 MG Tablet PO (07:56)
[2021-06-14] MEDS: Fenofibrate 48 MG Tablet PO (07:57)
[2021-06-14] MEDS: Clopidogrel Bisulfate 75 MG Tablet PO (07:57)
[2021-06-14 08:04] VITALS: O2SAT 99
[2021-06-14 08:11] VITALS: BP 107/37; PULSE 77; RESP 20; TEMP 36.6; O2SAT 99
[2021-06-14 08:21] LABS: Bedside Glucose 390 mg/dL (70-110)
--- NOTE | 2021-06-14 10:58 | TREXTCAR_ITS ---
Diet 06/13/21 15:17 Diet: Consistent Carb - Calorie Controlled Food consistency:: Regular Liquid Consistency:: Regular/Thin Dietary Modifications:: Sodium Restricted Type of Dietary Supplement:: Amos Is pt able to select menu?: Yes Diet Comments: Amos BID w/ breakfast and dinner How many daily calories?: 1600 calorie Wound(s) RIGHT ANKLE: Wound Type: Surgical Incision Therapies Weight Bearing: Non weight bearing Problem/Diagnosis (1) Closed right trimalleolar fracture: Status: Acute (2) Walking difficulty due to ankle and foot: Status: Acute Allergies/Procedures Done in Hospital Allergies ciprofloxacin Allergy (Severe, Verified 06/13/21 06:38) Hives clindamycin Allergy (Severe, Verified 06/13/21 06:38) Hives codeine Allergy (Severe, Verified 06/13/21 06:38) Itching formoterol [From Dulera] Allergy (Severe, Verified 06/13/21 06:38) Unknown mometasone furoate [From Dulera] Allergy (Severe, Verified 06/13/21 06:38) Unknown Penicillins Allergy (Severe, Verified 06/13/21 06:38) Hives Sulfa (Sulfonamide Antibiotics) Allergy (Severe, Verified 06/13/21 06:38) Hives fluticasone [From Advair Diskus] Allergy (Unknown, Verified 06/13/21 06:38) Unknown gemfibrozil [From Lopid] Allergy (Unknown, Verified 06/13/21 06:38) Unknown metformin Allergy (Unknown, Verified 06/13/21 06:38) Upset Stomach diarrhea oxycodone [From Percocet] Allergy (Unknown, Verified 06/13/21 06:38) Rash salmeterol [From Advair Diskus] Allergy (Unknown, Verified 06/13/21 06:38) Unknown Type of Care/Length of Stay Estimated LOS: Convalescent Care Less Than 30 days Type of Care Needed: Skilled Rehab Potential: Fair Prognosis: Fair Additional Orders/Day of Discharge Day of Discharge: 06/14/21 Dietary and Speech Recommendations Dietitian Recommendations/Changes: Recommend CHO control diet at 1600 kcal/day, continue Amos BID now at Breakfast and Dinner from med [employer]. Diet adjusted by Babs Hdz RDN, JEAN PAULN Discharge Plan Admission Admit Date/Time: 06/13/21 07:34 Attending Provider: Leslie Palmer Primary Care Provider: Lucila Asencio Consulting Providers: Modesta Houston Instructions Additional Instructions / Restrictions: Elevate right lower extremity. Avoid direct pressure to incision site (lateral ankle). Maintain non weightbearing status right. ICe to back of knee more than 15 min each hour if needed for pain. Keep splint and dressing clean, dry, and intact. Discharge Orders/Prescriptions Prescriptions: New docusate sodium [DOK] 100 mg Capsule 100 mg PO BID PRN PRN (Reason: Constipation) Qty: 0 RF: 0 ergocalciferol (vitamin D2) [Vitamin D2] 1,250 mcg (50,000 unit) Capsule 1,250 mcg PO Q7D@1000 Qty: 0 RF: 0 insulin lispro [Humalog KwikPen Insulin] 100 unit/mL Insulin Pen See Protocol unit subcut ACHS Qty: 0 RF: 0 ipratropium-albuterol 0.5 mg-3 mg(2.5 mg base)/3 mL Solution For Nebulization 3 ml inhalation Q4HWA.RT Qty: 0 RF: 0 sertraline 50 mg Tablet 25 mg PO DAILY Qty: 0 RF: 0 Continued calcium citrate 200 mg (950 mg) tablet 400 mg PO QHS RF: 0 omega-3 fatty acids 500 mg capsule 500 mg PO BID RF: 0 nitroglycerin 0.3 mg tablet, sublingual 0.3 mg SUBLINGUAL Q5-15M PRN (Reason: chest pain) RF: 0 aspirin [Adult Aspirin Regimen] 81 mg tablet,delayed release (DR/EC) 81 mg PO DAILY RF: 0 (DME) FreeStyle Charli 14 Day [place] Misc See Rx Instructions .ROUTE .MEDSUPPLY Qty: 1 RF: 0 (DME) FreeStyle Charli 14 Day Sensor Kit See Rx Instructions .ROUTE .MEDSUPPLY Qty: 4 RF: 7 Humulin R U-500 (Conc) Kwikpen 500 unit/mL (3 mL) insulin pen 55 - 160 unit subcut TID RF: 0 furosemide 40 mg tablet 40 mg PO DAILY RF: 0 fenofibrate 54 mg tablet 54 mg tablet 108 mg PO DAILY Qty: 180 RF: 3 multivitamin with minerals 1 EACH tablet 1 tab PO DAILY RF: 0 magnesium oxide 400 MG tablet 400 mg PO QHS RF: 0 albuterol sulfate 2.5 MG/3 ML solution for nebulization 2.5 mg Inhalation Q6H PRN PRN (Reason: Sob &/Or Wheezing) Qty: 120 RF: 0 budesonide-formoterol [Symbicort] 80-4.5 mcg/actuation HFA aerosol inhaler 2 puff INHALATION BID RF: 0 atenolol 25 mg tablet 25 mg PO 1500 RF: 0 (DME) insulin syringe-needle U-100 [BD Insulin Syringe Ultra-Fine] 0.5 mL 31 gauge x 5/16 syringe See Rx Instructions .ROUTE .MEDSUPPLY Qty: 100 RF: 8 montelukast 10 mg tablet 10 mg PO QHS Qty: 90 RF: 3 amitriptyline 25 mg tablet 25 mg PO QHS Qty: 90 RF: 3 clopidogrel 75 mg tablet 75 mg PO DAILY Qty: 90 RF: 3 rosuvastatin 5 mg tablet 5 mg PO DAILY Qty: 90 RF: 3 (DME) pen needle, diabetic [BD Ultra-Fine July Pen Needle] 32 gauge x 5/32 needle See Rx Instructions .ROUTE .MEDSUPPLY Qty: 300 RF: 3 Discontinued Ventolin HFA 90 mcg/actuation HFA aerosol inhaler 2 puff INHALATION Q6H PRN (Reason: Asthma) RF: 0 losartan 50 mg tablet 50 mg PO 1500 RF: 0 No Action trimethoprim 100 mg tablet 100 mg PO DAILY RF: 0 hydrocodone-acetaminophen 7.5-325 mg tablet 1 tab PO Q6H PRN (Reason: pain) 7 Days Qty: 28 RF: 0 Referrals / Follow Up: Lucila Asencio MD [Primary Care Provider] - Leslie Palmer DPM [STAFF PHYSICIAN] - Disposition Disposition (needs filled in before D/C Order can be placed): Residential Facility
--- NOTE | 2021-06-14 11:05 | PCM.PROGNOTE ---
Subjective Subjective this 70 F with multiple comorbidities was seen bedside POD #1 right open reduction internal fixation of trimalleolus ankle fracture. She denies fever, chills, nausea, vomiting, chest pain, constipation or worsening shortness of breath. She uses her incentive spirometer. Her anticoagulation medication has been restarted. She is amendable to go to the transitional care unit for additional rehab. Her pain is moderate and at times intense. She appears comfortable during the exam. Objective Data Objective Data Vital Signs: Vital Signs Temp Pulse Resp BP Pulse Ox 97.8 F 77 20 H 107/37 L 99 06/14/21 08:11 06/14/21 08:11 06/14/21 08:11 06/14/21 08:11 06/14/21 08:11 Oxygen Flow Rate (L/min) 3 Oxygen Delivery Method Nasal Cannula Weight: 99.79 kg Body Mass Index (BMI) 45.9 Intake & Output: Intake and Output for Last 24 Hours 06/12/21 06/13/21 06/14/21 23:59 23:59 23:59 Intake Total 530 / 530 Output Total 150 / 150 200 / 200 Balance 380 / 380 -200 / -200 Lab / Micro Data Result Diagrams: 06/14/21 04:45 06/14/21 04:45 Labs: Laboratory Results - last 24 hr 06/13/21 11:47: POC Glucose 230 H 06/13/21 13:12: POC Glucose 223 H 06/13/21 13:30: Vitamin D 25-Hydroxy 29.1 06/13/21 16:37: POC Glucose 403 H 06/13/21 21:16: POC Glucose 480 H* 06/14/21 04:45: WBC 9.7, RBC 3.16 L, Hgb 9.3 L, Hct 30.2 L, MCV 95.6, MCH 29.4, MCHC 30.8 L, RDW Std Deviation 47.9 H, RDW Coeff of Jo Ann 13.6, Plt Count 116 L, MPV 12.3 H, Immature Gran % (Auto) 0.600, Neut % (Auto) 78.4 H, Lymph % (Auto) 11.7 L, Gregory % (Auto) 9.1, Eos % (Auto) 0.1, Baso % (Auto) 0.1, Absolute Neuts (auto) 7.6, Absolute Lymphs (auto) 1.14, Nucleated RBC % 0, Platelet Estimate ADEQUATE, Plt Morphology Comment CLUMPED 06/14/21 04:45: Sodium 129 L, Potassium 5.7 H, Chloride 97 L, Carbon Dioxide 28.0, Anion Gap 4 L, BUN 31 H, Creatinine 1.00, Estim Creat Clear Calc 81.29, Est GFR (MDRD) Af Amer 70, Est GFR (MDRD) Non-Af 58 L, BUN/Creatinine Ratio 31.0 H, Glucose 430 H, Calcium 8.3 L, Total Bilirubin 0.50, AST 35, ALT 34, Alkaline Phosphatase 88, Total Protein 6.9, Albumin 2.6 L, Globulin 4.3 H, Albumin/Globulin Ratio 0.6 L 06/14/21 07:46: POC Glucose 390 H Radiography Diagnostic Testing: Radiology Impression Ankle X-Ray 06/13/21 07:24 Chest X-Ray 06/14/21 07:10 IMPRESSION: Suspect right hilar mass or lymphadenopathy in correlation with CT of the chest with contrast is recommended. Electronically Signed: Lupillo Wolf MD at 8:58 EDT Tel , Service support , Physical Exam Const alert and oriented x3 General Appearance: cooperative Resp Auscultation: diminished lung sounds Cardio regular rate and regular rhythm Extremity no calf tenderness Extremity Narrative: Right lower extremity surgical limb is in a rectus position and splint which is clean dry and intact. upon dressing change, incision is well aligned with sutures intact. No gapping, necrosis, purulence or streaking. Fracture blister to anterior ankle and medial hindfoot have partial overlying skin intact with some hemorrhagic underlying tissue. No further compromise of adjacent skin noted. No odor. Neuro oriented x3 Neuro Narrative: Lack of epicritic sensation light touch to toes consistent with neuropathic status right lower extremity Assessment & Plan Assessment/Plan (1) Closed right trimalleolar fracture: (2) Walking difficulty due to ankle and foot: PLAN: POD #1 ORIF trimalleolus ankle fracture Right ankle pain Multiple comorbitities including diabetes She is overall stable and remains afebrile. Her anticipated post operative course and management were reviewed today with the patient and her . Her vital signs are stable. Her dressing was changed today and a new Adaptic, gauze, abdominal pad and Gabriel wrap were applied with posterior mold splint. To better offload by keeping pressure off of the direct lateral incision site. Her blankets were adjusted to allow offloading. To maintain a strict nonweightbearing status. She is working with PT and OT. She has been approved for transfer to the transitional care unit for later today and orders have been placed. It is been confirmed that she is medically stable for transfer with hospitalist. Pain controlled with ordered medication. To ice and elevate for additional pain control. To use incentive spirometer. Plavix and aspirin were restarted. To optimize healing with nutritional supplementation. Vitamin D prescription started due to deficient levels to optimize bone healing. She is multiple comorbidities and is at risk for healing complications. She will be monitored closely. Please do not hesitate to call if you have any questions. I will continue to follow her while in the transitional care unit. Leslie Palmer DPM, FACF[facility] [phone]
--- NOTE | 2021-06-14 11:13 | PN.HOSP_ITS ---
Documented by User: Shirley Leonard NP, POULTRY INSEMINATOR-C 06/14/21 11:25 Subjective Subjective Patient seen and examined. Reports improvement in pain and shortness of breath. Amendable to TCU for rehab. Denies other symptoms or complaints. Objective Data Objective Data Vital Signs: Vital Signs Temp Pulse Resp BP Pulse Ox 97.8 F 77 20 H 107/37 L 99 06/14/21 08:11 06/14/21 08:11 06/14/21 08:11 06/14/21 08:11 06/14/21 08:11 Oxygen Flow Rate (L/min) 3 Oxygen Delivery Method Nasal Cannula Weight: 220 lb Body Mass Index (BMI) 45.9 Intake & Output: Intake and Output for Last 24 Hours 06/12/21 06/13/21 06/14/21 23:59 23:59 23:59 Intake Total 530 / 530 Output Total 150 / 150 200 / 200 Balance 380 / 380 -200 / -200 Lab / Micro Data Result Diagrams: 06/14/21 04:45 06/14/21 04:45 Labs: Laboratory Results - last 24 hr 06/13/21 11:47: POC Glucose 230 H 06/13/21 13:12: POC Glucose 223 H 06/13/21 13:30: Vitamin D 25-Hydroxy 29.1 06/13/21 16:37: POC Glucose 403 H 06/13/21 21:16: POC Glucose 480 H* 06/14/21 04:45: WBC 9.7, RBC 3.16 L, Hgb 9.3 L, Hct 30.2 L, MCV 95.6, MCH 29.4, MCHC 30.8 L, RDW Std Deviation 47.9 H, RDW Coeff of Jo Ann 13.6, Plt Count 116 L, MPV 12.3 H, Immature Gran % (Auto) 0.600, Neut % (Auto) 78.4 H, Lymph % (Auto) 11.7 L, [place] % (Auto) 9.1, Eos % (Auto) 0.1, Baso % (Auto) 0.1, Absolute Neuts (auto) 7.6, Absolute Lymphs (auto) 1.14, Nucleated RBC % 0, Platelet Estimate ADEQUATE, Plt Morphology Comment CLUMPED 06/14/21 04:45: Sodium 129 L, Potassium 5.7 H, Chloride 97 L, Carbon Dioxide 28.0, Anion Gap 4 L, BUN 31 H, Creatinine 1.00, Estim Creat Clear Calc 81.29, Est GFR (MDRD) Af Amer 70, Est GFR (MDRD) Non-Af 58 L, BUN/Creatinine Ratio 31.0 H, Glucose 430 H, Calcium 8.3 L, Total Bilirubin 0.50, AST 35, ALT 34, Alkaline Phosphatase 88, Total Protein 6.9, Albumin 2.6 L, Globulin 4.3 H, Albumin/Globulin Ratio 0.6 L 06/14/21 07:46: POC Glucose 390 H Radiography Diagnostic Testing: Radiology Impression Ankle X-Ray 06/13/21 07:24 Chest X-Ray 06/14/21 07:10 IMPRESSION: Suspect right hilar mass or lymphadenopathy in correlation with CT of the chest with contrast is recommended. Electronically Signed: Lupillo Wolf MD at 8:58 EDT Tel , Service support , Physical Exam Const alert, oriented x3 and no apparent distress Orientation / Consciousness: awake, oriented to person, oriented to place and oriented to time HEENT normocephalic and moist oral mucous membranes Eyes PERRL, EOMs intact bilaterally and conjunctivae normal Neck no lymphadenopathy Resp Auscultation: wheezes and diminished lung sounds Cardio regular rate, regular rhythm and no murmurs Peripheral Pulses: pulses 2+ throughout GI normal to inspection, nondistended, normoactive bowel sounds, non-tender and non-distended Extremity normal to inspection Extremity Narrative: Right lower extremity postop dressing intact Skin no rashes or lesions noted Lesions: no lesions Rashes: no rashes Trauma: no lacerations or abrasions Neuro CN's II-XII intact bilaterally, no focal motor deficits, no sensory deficits noted and deep tendon reflexes 2+ bilaterally Psych mental status grossly normal and affect normal Assessment & Plan Assessment/Plan (1) Closed right trimalleolar fracture: PLAN: 1. Right trimalleolor ankle fracture status post ORIF-management per podiatry. Pain currently controlled. PT/OT. TCU at discharge. 2. Type 2 diabetes [id number] with sliding scale insulin. Continue home insulin regimen. Continue high-dose sliding scale insulin at discharge to TCU with further adjustments as necessary. 3. Hypertension-stable, continue current regimen. 4. Chronic hypoxic respiratory failure, pulmonary arterial hypertension/severe COPD/CIARRA-continue supplement oxygen to maintain O2 sat above 90%. Scheduled duonebs secondary to mild expiratory wheezing. 5. Morbid obesity-diet and lifestyle modifications encouraged. 6. Chronic heart failure with preserved ejection fraction-stable, continue home diuretic regimen. 7. Hyperkalemia-repeat lab pending prior to DC. 8. Depression-initiated on Lexapro. DVT prophylaxis-SCDs, pharmacologic prophylaxis if okay per podiatry This patient was seen by TYRELL Esteves under the supervision of Dr. Houston. Documented by User: Dr. Modesta Houston MD 06/14/21 12:52 Objective Data Lab / Micro Data Result Diagrams: 06/14/21 04:45 06/14/21 04:45 Charges/Coding Addendum Addendum: This patient was seen in conjunction with Shirley Leonard. I have independently interviewed and examined the patient and reviewed pertinent historical, laboratory, and other data. I have reviewed her note and concur with her documentation Patient was seen and examined in the company of the . She complains of pain. She is also short of breath but she is on 2 L of oxygen that she is on at home. Denies any fever or chills. She has been complaining of patient feeling depressed. Patient admits to feeling depressed. Patient was started on Zoloft. She would like to go to TCU for rehab. Patient was discharged to TCU for rehab. Physical Exam: Gen: Comfortable, morbidly obese, not pale, not jaundiced, on 3 L of oxygen CVS:HS I +II, regular, no murmurs RESP: Diminished at lung bases, scattered wheezes GI: BS present and normal, soft, nontender, no palpable organs EXT: Right leg in cast and Gabriel wraps Visit Charges Inpatient E&M: 30747 Subs Hosp L3
--- NOTE | 2021-06-14 11:55 | CASEMGMT ---
Social Work RAINE spoke with Keyla in TCU and they are able to accept pt today. Physician notified. RAINE met with pt and her and updated that TCU is able to accept and per physician pt will discharge today. RAINE requested pt spouse take vaccination card to TCU. Pt and spouse agreeable to discharge plan. Orders faxed and Keyla updated that d/c is today. Disposition: TCU, discharge today. Skilled level of care under convalescent stay. TAVIA Loyd
[2021-06-14] MEDS: Sertraline 50 MG Tablet 25 MG PO (12:00)
[2021-06-14 12:06] LABS: Bedside Glucose 436 mg/dL (70-110)
[2021-06-14] MEDS: ALPRAZolam 0.25 MG Tablet PO (12:07)
[2021-06-14] MEDS: Ergocalciferol 1.25 MG (50, 000 UNIT) Capsule PO (12:48)
[2021-06-14 12:51] VITALS: BP 120/58; PULSE 86; RESP 20; TEMP 36.3; O2SAT 98
[2021-06-14 13:23] LABS: Anion Gap 1 (5-15); BUN 32 mg/dL (7-18); BUN/Creat Ratio 32.4 RATIO (10-20); Calcium,Total 8.8 mg/dL (8.5-10.1); Chloride 96 mmol/L (98-107); Creatinine, Serum 0.99 mg/dL (0.55-1.02); EST Glomerular Filtration Rate 59 mL/min (>60); Est Glom Filt Rate - Afr Amer 71 mL/min (>60); Estimated Creatinine Clearance 82.11 ml/min; Glucose 422 mg/dL (74-106); Sodium Level 131 mmol/L (136-145)
== END 2021-06-14 13:00 | disposition skilled nursing facility (03) | DRG 493 ==
LOC: SDC 11:33 → MS2 11:33
PROVIDERS: Nurse Practitioner Family; Admitting Provider Podiatrist; PCP Internal Medicine; Referring Provider Podiatrist; Visit Provider Podiatrist
PROC: 0QSG04Z Reposition Right Tibia with Internal Fixation Device, Open Approach (ICD-10-PCS; CPT 27814; principal; 2021-06-13 07:15)
DX: S82.851A Displaced trimalleolar fracture of right lower leg, initial encounter for closed fracture (principal); J96.11 Chronic respiratory failure with hypoxia; I50.30 Unspecified diastolic (congestive) heart failure; Z68.42 Body mass index [BMI] 45.0-49.9, adult; I27.21 Secondary pulmonary arterial hypertension; E66.01 Morbid (severe) obesity due to excess calories; J44.9 Chronic obstructive pulmonary disease, unspecified; G47.33 Obstructive sleep apnea (adult) (pediatric); I11.0 Hypertensive heart disease with heart failure; F32.9 Major depressive disorder, single episode, unspecified; E87.5 Hyperkalemia; I25.10 Atherosclerotic heart disease of native coronary artery without angina pectoris; E11.65 Type 2 diabetes mellitus with hyperglycemia; E78.00 Pure hypercholesterolemia, unspecified; E78.5 Hyperlipidemia, unspecified; F17.200 Nicotine dependence, unspecified, uncomplicated; F41.9 Anxiety disorder, unspecified; K21.9 Gastro-esophageal reflux disease without esophagitis; E11.36 Type 2 diabetes mellitus with diabetic cataract; Z23 Encounter for immunization; Z79.4 Long term (current) use of insulin; Z86.73 Personal history of transient ischemic attack (TIA), and cerebral infarction without residual deficits; Z82.49 Family history of ischemic heart disease and other diseases of the circulatory system; Z82.5 Family history of asthma and other chronic lower respiratory diseases; Z79.02 Long term (current) use of antithrombotics/antiplatelets; Z88.1 Allergy status to other antibiotic agents; Z88.0 Allergy status to penicillin; Z88.2 Allergy status to sulfonamides; Z83.3 Family history of diabetes mellitus; Z88.8 Allergy status to other drugs, medicaments and biological substances; Z88.5 Allergy status to narcotic agent; Z90.49 Acquired absence of other specified parts of digestive tract; Z95.5 Presence of coronary angioplasty implant and graft; Z96.41 Presence of insulin pump (external) (internal); Z90.710 Acquired absence of both cervix and uterus; R29.6 Repeated falls; Z98.41 Cataract extraction status, right eye
CPT/HCPCS: 36415; 71045; 71250; 73600; 73700; 76000; 80048; 80053; 82306; 82962; 85025; 94640; 97162; 97167; 97802; 99283; 99406; C1713; G0008; J7040; J7120; P9612; 90686; A4216; J2405

== ENCOUNTER 2021-06-14 13:14 | Inpatient (IN) | payer MEDICARE, OTHER, SELFPAY ==
[2018-11-03 13:03] VITALS: BMI 44.2
[2021-06-14 13:20] VITALS: BP 147/72; PULSE 90; RESP 24; TEMP 35.6; O2SAT 98; BMI 45.9
--- NOTE | 2021-06-14 13:24 | NURSING ---
R' RECEIVED FLU VACCINE ON ACUTE SIDE TODAY PRIOR TO ADMISSION.
[2021-06-14 13:27] VITALS: RESP 26
[2021-06-14] MEDS: Atenolol 25 MG Tablet PO (15:22)
--- NOTE | 2021-06-14 15:28 | NURSING ---
R' STATES SHE TAKES LOSARTAN DAILY. ORDER RECEIVED FROM DR ADDISON.
--- NOTE | 2021-06-14 15:46 | PCM.HP.STD ---
HPI - General General Date of Admission: 06/14/21 HPI Narrative BIMAL STOKES, is a 70 Female who presents with followin06/05/2021 Right ankle fracture. 06/13/2021 Dr. Palmer performed open reduction internal fixation right trimalleolar fracture. 06/13/2021 Pain, short of breath. Adjust pain medications. PT/OT for debility. Supplement oxygen to maintain pulsox 90%. 06/14/2021 Non Weight bearing right lower extremity. Incentive spirometer to prevent atelectasis. Pain, shortness of breath improved. 06/14/2021 Admit to TCU with debility, here for rehabilitation, strengthening, prior to discharge home with . [facility] Medical History (Updated 06/14/21 @ 15:[address] Dajuan Zacarias MD) Anxiety Anxiety and depression Arthritis Asthma Atherosclerosis of coronary artery of [place] heart without angina pectoris Atherosclerotic heart disease of [place] coronary artery without angina pectoris Back problem BiPAP (biphasic positive airway pressure) dependence Cancer Cardiac murmur Cardiology follow-up encounter Cataracts, bilateral Chronic headaches COPD (chronic obstructive pulmonary disease) CVA (cerebral vascular accident) Depression Diabetes Diastolic CHF Essential (primary) hypertension Excessive bleeding Exertional shortness of breath Former smoker Gallstones Gastric reflux GI problem High cholesterol High triglycerides History of echocardiogram History of edema History of stress test Hives Hyperlipidemia Hypertension IBS (irritable bowel syndrome) Insulin dependent diabetes mellitus Migraine headache Morbid obesity with BMI of 40.0-44.9, adult Neuropathy Nicotine dependence On home oxygen therapy CIARRA (obstructive sleep apnea) Pancreatitis Pulmonary hypertension Routine health maintenance Secondary pulmonary arterial hypertension Skin tags, multiple acquired Sleep apnea Uncontrolled type 2 diabetes mellitus Uses wheelchair UTI (urinary tract infection) Vision problem Wears dentures Wears glasses Home Medications calcium citrate 200 mg (950 mg) tablet 400 mg PO QHS tab 07/21/18 [History Last Taken 11/02/18 21:00] omega-3 fatty acids 500 mg capsule 500 mg PO BID cap 07/21/18 [History Last Taken 11/02/18 08:00] magnesium oxide 400 mg PO QHS 09/29/18 [History Last Taken 11/02/18 21:00] multivitamin with minerals 1 tab PO DAILY 09/29/18 [History Last Taken 11/02/18 08:00] albuterol sulfate 2.5 mg INHALATION Q6H PRN PRN #120 vial 10/01/18 [Rx Last Taken 09/21/18 08:00] nitroglycerin 0.3 mg sublingual tablet 0.3 mg SUBLINGUAL Q5-15M PRN 10/21/18 [History Last Taken Unknown] aspirin 81 mg tablet,delayed release 81 mg PO DAILY 10/26/18 [History Last Taken 06/11/21] flash glucose scanning reader #1 ea 07/01/19 [Rx Last Taken Unknown] flash glucose sensor #4 ea 07/01/19 [Rx Last Taken Unknown] insulin syringe-needle U-100 0.5 mL 31 gauge x 5/16 #100 ea 09/29/19 [Rx Last Taken Unknown] montelukast 10 mg tablet 10 mg PO QHS #90 tab 11/19/20 [Rx Last Taken Unknown] furosemide 40 mg tablet 40 mg PO DAILY tab 01/21/21 [History Last Taken Unknown] insulin regular hum U-500 conc 55 - 160 unit SUBCUT TID ml 01/21/21 [History Last Taken Unknown] amitriptyline 25 mg tablet 25 mg PO QHS #90 tab 02/19/21 [Rx Last Taken 06/11/21] fenofibrate 54 mg tablet 108 mg PO DAILY #180 tab 03/01/21 [Rx Last Taken Unknown] trimethoprim 100 mg tablet 100 mg PO DAILY 03/01/21 [History Last Taken Unknown] clopidogrel 75 mg tablet 75 mg PO DAILY #90 tab 03/04/21 [Rx Last Taken 06/08/21] pen needle, diabetic 32 gauge x 5/32 #300 each 04/12/21 [Rx Last Taken Unknown] hydrocodone-acetaminophen 1 tab PO Q6H PRN 7 Days #28 tab 06/07/21 [Rx Last Taken Unknown] budesonide-formoterol [Symbicort] 2 puff INHALATION BID 06/11/21 [History Last Taken Unknown] atenolol 25 mg PO 1500 06/12/21 [History Last Taken 06/12/21 15:00] docusate sodium [DOK] 100 mg PO BID PRN PRN #0 cap 06/14/21 [Rx Last Taken Unknown] ergocalciferol (vitamin D2) [Vitamin D2] 1,250 mcg PO Q7D@1000 06/14/21 [History Last Taken 06/14/21] hydrocodone-acetaminophen 1 tab PO Q6H PRN #28 tab 06/14/21 [Rx Last Taken Unknown] insulin lispro [Humalog KwikPen Insulin] See Protocol SUBCUT ACHS 06/14/21 [History Last Taken Unknown] ipratropium-albuterol 3 ml INHALATION Q4HWA.RT 06/14/21 [History Last Taken Unknown] rosuvastatin 5 mg PO DAILY 06/14/21 [History Last Taken Unknown] sertraline 25 mg PO DAILY 06/14/21 [History Last Taken Unknown] Allergy/AdvReac Type Severity Reaction Status Date / Time ciprofloxacin Allergy Severe Hives Verified 06/13/21 06:38 clindamycin Allergy Severe Hives Verified 06/13/21 06:38 codeine Allergy Severe Itching Verified 06/13/21 06:38 formoterol [From Dulera] Allergy Severe Unknown Verified 06/13/21 06:38 mometasone furoate Allergy Severe Unknown Verified 06/13/21 06:38 [From Dulera] Penicillins Allergy Severe Hives Verified 06/13/21 06:38 Sulfa (Sulfonamide Allergy Severe Hives Verified 06/13/21 06:38 Antibiotics) fluticasone Allergy Unknown Unknown Verified 06/13/21 06:38 [From Advair Diskus] gemfibrozil [From Lopid] Allergy Unknown Unknown Verified 06/13/21 06:38 metformin Allergy Unknown Upset Verified 06/13/21 06:38 Stomach oxycodone [From Percocet] Allergy Unknown Rash Verified 06/13/21 06:38 salmeterol Allergy Unknown Unknown Verified 06/13/21 06:38 [From Advair Diskus] Family History Mother Asthma Arthritis Hypertension Grandmother Cancer Brother Diabetes Heart disease Hypertension Father Heart disease Hypertension Surgical History (Updated 06/14/21 @ 15:[address] Dajuan Zacarias MD) H/O: H/O: hysterectomy History of cardiac catheterization History of coronary artery stent placement History of open reduction and internal fixation (ORIF) procedure History of right cataract extraction Hx of cataract surgery Hx of cholecystectomy Stented coronary artery (11/03/18) Social History (Updated 06/14/21 @ 15:[address] Dajuan Zacarias MD) household members: spouse Smoking Status: Former smoker Tobacco: How many years used: 50 how long ago did patient quit smokin, 1ppd second hand exposure: Yes alcohol intake: never substance use type: does not use ROS Constitutional Constitutional: Denies chills, fever(s) or weight gain ENT HEENT: Denies headache(s), nasal congestion or nasal discharge Cardiovascular Cardiovascular: Denies chest pain or palpitations Respiratory/Chest Respiratory/Chest: Denies cough, excessive phlegm production or shortness of breath with exertion Gastrointestinal Gastrointestinal: Denies abdominal pain, nausea or vomiting Genitourinary Genitourinary: Denies dysuria Musculoskeletal Musculoskeletal: Denies joint pain or joint swelling Integumentary Integumentary: Denies rash or wounds Neurologic Neurologic: Denies focal weakness, numbness or tingling Psychiatric Psychiatric: Reports auditory hallucinations; Denies anxiety, depression, homicidal ideation or suicidal ideation Vital Signs Vital Signs Vital Signs: 06/14/21 13:20 06/14/21 13:27 06/14/21 14:05 Temperature 96.1 F L Temperature Source Temporal Pulse Rate 90 Pulse Rhythm Regular Pulse Strength Normal (2+) Respiratory Rate 24 H 26 H Respiratory Effort Short of Breath Labored Respiratory Depth Normal Respiratory Pattern Tachypnea Blood Pressure 147/72 H Blood Pressure Mean 97 Blood Pressure Source Monitor Blood Pressure Position Semi-Fowlers Blood Pressure Location Left Forearm Pulse Ox 98 Oxygen Delivery Method Nasal Cannula Nasal Cannula Oxygen Flow Rate (L/min) 4 3 5 06/14/21 14:55 Temperature Temperature Source Pulse Rate Pulse Rhythm Pulse Strength Respiratory Rate Respiratory Effort Respiratory Depth Respiratory Pattern Blood Pressure Blood Pressure Mean Blood Pressure Source Blood Pressure Position Blood Pressure Location Pulse Ox Oxygen Delivery Method Oxygen Flow Rate (L/min) 5 Weight Weight: 99.79 kg Body Mass Index (BMI) 45.9 Physical Exam Const alert and oriented x3 General Appearance: cooperative HEENT normocephalic Eyes PERRL and EOMs intact bilaterally Neck supple, no JVD and no carotid bruits Resp normal respiratory effort, normal air movement and clear to auscultation bilaterally Cardio regular rate and regular rhythm GI normal to inspection, nondistended, normoactive bowel sounds, non-tender and non-distended Extremity normal capillary refill Extremity Narrative: Right lower extremity splint, dressing, LOLA wrap. General Extremity: Negative for edema Skin no rashes or lesions noted General Skin Exam: no breakdown Psych affect normal Appearance: appropriate Assessment & Plan Assessment/Plan (1) Debility: (2) Closed right trimalleolar fracture: (3) Chronic obstructive pulmonary disease: (4) Hypomagnesemia: (5) Coronary artery disease: (6) Diabetes mellitus: (7) Hypertension: (8) Hyperlipidemia: (9) Gastroesophageal reflux disease: (10) Stroke: (11) Asthma: (12) Depression: PLAN: 70 year old female with below past medical history suffered right ankle fracture 06/05/2021, underwent ORIF right trimalleolar fracture with Dr. Palmer, admitted to TCU with debility, here for rehabilitation, strengthening, prior to discharge home with . Debility - PT/OT. Pain - [place] 7.5mg 15ml Q6H PRN. Bowel - Miralax 17gm daily, Senna/colace 2 tablets twice daily, Dulcolax 10mg daily PRN. Adult immunization - Administer prevnar 13, pneumovax 23, fluzone, covid19 vaccine as appropriate. DVT prophylaxis - Hold, on dual antiplatelet agents. Asthma/COPD - Budesonide 0.5mg inhaled Q12H, Duoneb 3ml Q4H WART, Albuterol 2.5mg Q6H PRN, Singulair 10mg QHS. Insomnia - Elavil 25mg QHS, stable chronic skilled nursing use, GDR not recommended. Coronary artery disease - Atenolol 25mg daily, Losartan 50mg daily, Plavix 75mg daily, Aspirin 81mg daily, NTG 0.4mg Q5m PRN. Hyperlipidemia - Atorvastatin 10mg QHS. Calcium deficiency - Calcium 500mg QHS. Vitamin D deficiency - Vitamin D 50,000 units per week. Hyperlipidemia - Fenofibrate 96mg daily. Edema - Furosemide 40mg daily. Diabetes Mellitus II - Humulin R U-500 55 units TIDCM. Hypomagnesemia - Magnesium Chloride 128mg daily. Nutrition - MVI daily. Tinea Corporis - Nystatin powder topical twice daily. 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 Recurrent urinary tract infection - Trimethoprim 100mg daily. Hypercortisolism - Dexamethasone 1mg 23:00, Cortisol level 07:00.
[2021-06-14] MEDS: HYDROCODONE/APAP 7.5-325/15ML 15 ML UDC PO (15:53)
[2021-06-14 16:35] LABS: Bedside Glucose 379 mg/dL (70-110)
[2021-06-14] MEDS: Senna/Docusate Sodium 1 Tablet 2 TABLET PO (17:39)
[2021-06-14] MEDS: Losartan Potassium 50 MG Tablet PO (17:40)
[2021-06-14] MEDS: Insulin U-500 UNITS/ML PEN 55 UNITS SC ×2 (17:40→22:44)
--- NOTE | 2021-06-14 17:51 | NURSING ---
Pt Blood Sugar 379. Dr Zacarias updated no new orders at this time recheck in 1hr.
[2021-06-14 19:08] VITALS: PULSE 87; RESP 20; O2SAT 93
[2021-06-14] MEDS: Budesonide Respules 0.5 MG/2 ML AMPUL.NEB. INHALATION (19:08)
[2021-06-14] MEDS: Ipratropium/Albuterol Sulfate 3 ML AMPUL.NEB INHALATION (19:08)
[2021-06-14 19:17] LABS: Bedside Glucose 438 mg/dL (70-110)
--- NOTE | 2021-06-14 19:58 | NURSING ---
Pt Blood sugar rechecked 438 Dr. Zacarias updated and New order for 1x Dose of Insulin U500 55units. Recheck in 1 hr.
--- NOTE | 2021-06-14 20:30 | NURSING ---
PT OFF UNIT AT THIS TIME FOR ORDERED CT SCAN
--- NOTE | 2021-06-14 20:54 | NURSING ---
CT calls and states patient is refusing IV placement for IV contrast. CT states unable to complete CT with contrast as ordered. paged and awaiting return phone call for ok to continue CT without contrast or to cancel CT per CT department
--- NOTE | 2021-06-14 21:11 | NURSING ---
Addendum entered by Mary Anthony 06/14/21 21:12: CT department and notified of new order, new order faxed to CT department Original Note: returned page via telephone, new order for CT of chest without contrast due to patient refusal of Iv placement
--- NOTE | 2021-06-14 22:09 | CM.ED ---
SW Note SW responded to Rapid Response in TCU. No family was present. No further SW needs at this time. SW remains available. Plan: Emotional support for family Taylor KRAUS
[2021-06-14] MEDS: Furosemide 40 MG/4 ML Vial IV (22:10)
--- NOTE | 2021-06-14 22:16 | NURSING ---
Addendum entered by Mary Anthony 06/14/21 22:49: Blood sugar 367 Original Note: sustainability officer calls for this nurse to assist with patient upon return from CT scan approx 2130, presenting with agitation. Pt. immediately assessed, upon entering room patient observed restless, diaphoretic, labored breathing, resistant to staff assist, 02 on via NC, 60 resps per min, skin pale, states I think I'm going to , spo2 fluctuating between 85 and 90 percent. Respiratory therapy called to unit and arrives to assess patient and assist with c-pap machine/oxygenation. Second RN present to assist. AERONAUTICAL TEST ENGINEER called to unit. Order received from hospitalist for stat reading of CT scan, IV placement and 40mg IV lasix, and troponin level. IV placed to left wrist by beam house inspector. IV lasix administered per order. Pt. presents as lethargic, responds to verbal and tactile stimuli. Spo2 93% on c-pap. Per hospitalist patient to remain on unit at this time until further eval of stat CT read and effect of IV lasix.
[2021-06-14 22:33] VITALS: BP 163/69; PULSE 75; RESP 30; TEMP 37.2; O2SAT 91
[2021-06-14 22:48] LABS: Troponin-I HS 45 pg/mL (3.0-54.0)
--- NOTE | 2021-06-14 23:08 | NURSING ---
contacted via telephone related to patient status/vitals/CT results. New order received to send to ED
--- NOTE | 2021-06-14 23:20 | NURSING ---
Pt. taken to ED at this time
[2021-06-14 23:26] LABS: Bedside Glucose 367 mg/dL (70-110)
--- NOTE | 2021-06-14 23:29 | PN.HOSP_ITS ---
Hospitalist Note Patient with rapid response called per staff secondary to concerns for hypoxia, had pulled off her CPAP machine and her oxygenation was low and she was noted to be very tachypneic. Patient recently been for CT but secondary to inability to place IV line CT chest without contrast obtained as patient had prior chest x- ray with concern for mass. CT reviewed as result requested stat and no obvious pulmonary mass, lymphadenopathy noted and some findings concerning for overload as well. Given findings on evaluation with crackles at bases, decreased air movement IV Lasix 40 mg x 1 was administered. Requested that staff continue to monitor and if any further concerns for respiratory compromise she be evaluated in the ED. Will change Lasix to 40 mg p.o. daily and requested staff to update Dr. Zacarias.
--- NOTE | 2021-06-14 23:41 | NURSING ---
Pt. spouse (Win) contacted via telephone related to patient status and currently in ED for eval and tx, spouse agreeable and expresses thanks for update.
--- NOTE | 2021-06-15 01:01 | NURSING ---
Addendum entered by Mary Anthony 06/15/21 04:36: Per ED discharge packet patient to follow up with Lucila Asencio MD [address] [place] [address] Original Note: Received report from ED, states patient received aerosol and is feeling better. Pt to be sent back to unit
[2021-06-15] MEDS: Montelukast 10 MG Tablet PO ×2 (01:28→20:42)
[2021-06-15] MEDS: Amitriptyline 25 MG Tablet PO ×2 (01:28→20:42)
[2021-06-15 01:35] VITALS: BP 157/56; PULSE 74; RESP 26; O2SAT 98
[2021-06-15] MEDS: Polyethylene Glycol 3350 17 GM PACKET PO (05:36)
[2021-06-15] MEDS: Sertraline 50 MG Tablet 25 MG PO (05:36)
[2021-06-15] MEDS: Senna/Docusate Sodium 1 Tablet 2 TABLET PO ×2 (05:37→15:36)
[2021-06-15] MEDS: Fenofibrate 48 MG Tablet 96 MG PO (05:37)
[2021-06-15] MEDS: Trimethoprim 100 MG Tablet PO (05:37)
[2021-06-15] MEDS: Atorvastatin Calcium 10 MG Tablet PO (05:38)
[2021-06-15] MEDS: Magnesium Chloride 64 MG Delay Rel.Tablet 128 MG PO (05:38)
[2021-06-15] MEDS: Furosemide 40 MG Tablet PO ×2 (05:38→17:17)
[2021-06-15] MEDS: Clopidogrel Bisulfate 75 MG Tablet PO (05:38)
[2021-06-15 06:26] LABS: Bedside Glucose 316 mg/dL (70-110)
[2021-06-15 07:09] VITALS: PULSE 88; RESP 28; O2SAT 94
[2021-06-15] MEDS: Ipratropium/Albuterol Sulfate 3 ML AMPUL.NEB INHALATION ×2 (07:09→15:45)
[2021-06-15] MEDS: Budesonide Respules 0.5 MG/2 ML AMPUL.NEB. INHALATION (07:09)
[2021-06-15] MEDS: HYDROCODONE/APAP 7.5-325/15ML 15 ML UDC PO ×2 (07:23→18:28)
[2021-06-15] MEDS: Multivitamins,Ther W-Minerals Tablet 1 TABLET PO (07:24)
[2021-06-15] MEDS: Aspirin E.C. 81 MG Tablet PO (07:24)
[2021-06-15] MEDS: Nystatin Powder 15gm Bottle 1 APPLIC TOPICAL ×2 (07:29→17:19)
--- NOTE | 2021-06-15 07:38 | NURSING ---
Per hospitalist (Gladys Pelletier) request, Dr. Zacarias notified at this time via telephone of increased lasix order from lasix 40mg daily to 40mg BID, no new orders received. .
[2021-06-15] MEDS: Insulin U-500 UNITS/ML PEN 55 UNITS SC ×2 (08:04→11:30)
[2021-06-15 08:38] LABS: Absolute Neutrophil Count 6.5 X10^3/uL (2.0-7.7); Basophil# 0.03 X10^3/uL; Basophil% 0.3 % (0-1); Eosinophils% 1.1 % (0-5); Hematocrit 31.6 % (37-47); Hemoglobin 9.6 g/dL (12.0-15.0); Lymphocyte % 14.8 % (19-41); Mean Corp Hgb Conc 30.4 g/dL (32-36); Mean Corpuscular Hgb 30.1 pg (27.0-32.0); Mean Corpuscular Volume 99.1 fL (81-99); Mean Platelet Vol. 11.5 fl (6.2-12.0); Monocyte# 0.75 X10^3/uL; Monocyte% 8.6 % (0-10); NRBC Flagged by Analyzer 0 % (0-5); Neutrophil # 6.53 X10^3/uL (2.7-7.7); Neutrophil % 74.6 % (47-70); Platelet Count 150 K/mm3 (150-450); RBC Distribution Width CV 13.8 % (11.6-14.6); RBC Distribution Width SD 50.3 fl (35.1-43.9); Red Blood Count 3.19 M/mm3 (4.2-5.4); White Blood Count 8.8 K/mm3 (4.4-11.0)
[2021-06-15 09:26] LABS: Anion Gap 4 (5-15); BUN 40 mg/dL (7-18); BUN/Creat Ratio 39.2 RATIO (10-20); Calcium,Total 9.7 mg/dL (8.5-10.1); Chloride 94 mmol/L (98-107); Creatinine, Serum 1.02 mg/dL (0.55-1.02); EST Glomerular Filtration Rate 57 mL/min (>60); Est Glom Filt Rate - Afr Amer 69 mL/min (>60); Estimated Creatinine Clearance 79.69 ml/min; Glucose 293 mg/dL (74-106); Potassium 5.1 mmol/L (3.5-5.1); Sodium Level 133 mmol/L (136-145)
[2021-06-15] MEDS: Tuberculin,Purif.prot.deriv. 50 TU/ML Vial 0.1 ML ID (10:54)
[2021-06-15 11:00] LABS: Bedside Glucose 416 mg/dL (70-110)
[2021-06-15] MEDS: Insulin U-500 UNITS/ML PEN 110 UNITS SC ×2 (12:02→17:17)
--- NOTE | 2021-06-15 12:05 | NURSING ---
RN administering Humulin 55 units while order discontinued. N.O. Humulin [address] Zacarias d/t elevated blood sugars. RN administered additional 55 units. Per patient she can feel herself go low. Patient also has her unit from home, [employer] Charli 14 day to check blood sugars. The skin attachment device/needle is in her left upper arm. Will continue to monitor.
[2021-06-15 14:42] VITALS: BP 142/91; PULSE 84; RESP 18; TEMP 36.7; O2SAT 98
[2021-06-15] MEDS: Losartan Potassium 50 MG Tablet PO (15:36)
[2021-06-15] MEDS: Atenolol 25 MG Tablet PO (15:36)
[2021-06-15 15:45] VITALS: PULSE 88; RESP 28
[2021-06-15 16:51] LABS: Bedside Glucose 287 mg/dL (70-110)
[2021-06-15 19:04] VITALS: PULSE 85; RESP 18
[2021-06-15] MEDS: Calcium (Elemental) 500 MG Tablet PO (20:41)
[2021-06-15 21:26] LABS: Bedside Glucose 216 mg/dL (70-110)
[2021-06-15 22:43] VITALS: PULSE 70; RESP 12; O2SAT 97
[2021-06-16] MEDS: HYDROCODONE/APAP 7.5-325/15ML 15 ML UDC PO ×4 (00:26→20:41)
[2021-06-16] MEDS: Polyethylene Glycol 3350 17 GM PACKET PO (05:30)
[2021-06-16] MEDS: Magnesium Chloride 64 MG Delay Rel.Tablet 128 MG PO (05:31)
[2021-06-16] MEDS: Nystatin Powder 15gm Bottle 1 APPLIC TOPICAL ×2 (05:31→17:31)
[2021-06-16] MEDS: Clopidogrel Bisulfate 75 MG Tablet PO (05:32)
[2021-06-16] MEDS: Trimethoprim 100 MG Tablet PO (05:32)
[2021-06-16] MEDS: Atorvastatin Calcium 10 MG Tablet PO (05:32)
[2021-06-16] MEDS: Sertraline 50 MG Tablet 25 MG PO (05:32)
[2021-06-16] MEDS: Furosemide 40 MG Tablet PO ×2 (05:32→17:29)
[2021-06-16] MEDS: Fenofibrate 48 MG Tablet 96 MG PO (05:32)
[2021-06-16] MEDS: Senna/Docusate Sodium 1 Tablet 2 TABLET PO (05:32)
[2021-06-16 06:41] LABS: Bedside Glucose 115 mg/dL (70-110)
[2021-06-16 06:49] VITALS: PULSE 68; RESP 18; O2SAT 94
[2021-06-16] MEDS: Ipratropium/Albuterol Sulfate 3 ML AMPUL.NEB INHALATION ×2 (06:49→19:21)
[2021-06-16] MEDS: Budesonide Respules 0.5 MG/2 ML AMPUL.NEB. INHALATION ×2 (06:49→19:21)
[2021-06-16] MEDS: Aspirin E.C. 81 MG Tablet PO (07:46)
[2021-06-16] MEDS: Multivitamins,Ther W-Minerals Tablet 1 TABLET PO (07:46)
[2021-06-16] MEDS: Insulin U-500 UNITS/ML PEN 110 UNITS SC (08:20)
--- NOTE | 2021-06-16 09:31 | PCM.PROGNOTE ---
Subjective Subjective This 70 F with multiple comorbidities was seen bedside in the transitional care unit POD #3 right open reduction internal fixation of trimalleolus ankle fracture. She denies fever, chills, nausea, vomiting, chest pain, constipation, or worsening shortness of breath. Her pain is moderate and she reports she is trying not to take her pain medication. Her pain is worse at night. Objective Data Objective Data Vital Signs: Vital Signs Temp Pulse Resp BP Pulse Ox 98.1 F 68 18 142/91 H 94 06/15/21 14:42 06/16/21 06:49 06/16/21 06:49 06/15/21 14:42 06/16/21 06:49 Oxygen Flow Rate (L/min) 4 Oxygen Delivery Method Nasal Cannula Weight: 99.79 kg Body Mass Index (BMI) 45.9 Intake & Output: Intake and Output for Last 24 Hours 06/14/21 06/15/21 06/16/21 23:59 23:59 23:59 Intake Total 240 / 240 1040 / 1040 720 / 720 Balance 240 / 240 1040 / 1040 720 / 720 Lab / Micro Data Result Diagrams: 06/15/21 07:46 06/15/21 07:46 Labs: Laboratory Results - last 24 hr 06/15/21 10:52: POC Glucose 416 H 06/15/21 16:27: POC Glucose 287 H 06/15/21 21:14: POC Glucose 216 H 06/16/21 06:25: POC Glucose 115 H Physical Exam Const alert and oriented x3 General Appearance: cooperative Extremity no calf tenderness Extremity Narrative: Right lower extremity surgical limb is in a rectus position and splint which is clean dry and intact. No adjacent streaking, redness, strikethrough or odor Neuro oriented x3 Neuro Narrative: Lack of epicritic sensation light touch to toes consistent with neuropathic status right lower extremity. Assessment & Plan Assessment/Plan (1) Debility: (2) Closed right trimalleolar fracture: (3) Polyneuropathy due to type 2 diabetes mellitus: (4) Fracture of ankle, trimalleolar, right, closed: PLAN: This patient was seen postoperative day #3. She is overall stable and remains afebrile. Her anticipated post operative course and management were reviewed today with the patient. Her vital signs are stable. Her dressing and splint are clean, dry, and intact. She is laying with her leg externally rotated with pressure directly on her incision site. Pillows and blankets were adjusted to offload this site and she was advised to stay compliant with this to reduce surgical site compromise. To maintain a strict nonweightbearing status. She will work with PT and OT while in the transitional care unit. He has oral pain medication ordered however reports she has not been taking it because she wants to try to get off of pain medication however complains her pain is intermittently out of control. I advised her to take the pain medication as ordered especially during the first week to prevent uncontrolled pain. Then at that time would be appropriate to wean her off. She reports she does not want to have an increased pain medication frequency or dose. I do not recommend additional anti-inflammatory medication given her anticoagulation regimen. To continue to ice and elevate for pain control also. To use incentive spirometer. To optimize healing with nutritional supplementation. Vitamin D prescription started due to deficient levels to optimize bone healing. She is multiple comorbidities and is at risk for healing complications. The flight control specialist is on consultation for input to optimize healing and also for improved glucose management; her elevated blood glucose levels are noted. Medical management per Dr. Zacarias is appreciated. It is noted she had a recent CHF exacerbation and was seen in the emergency room. Please do not hesitate to call if you have any questions. I will continue to follow her while in the transitional care unit on a weekly basis. Leslie Palmer DPM, FACF[facility] [phone]
[2021-06-16 09:42] VITALS: O2SAT 92
[2021-06-16 10:46] VITALS: PULSE 69; RESP 19
[2021-06-16 10:51] LABS: Bedside Glucose 308 mg/dL (70-110)
[2021-06-16] MEDS: Insulin U-500 UNITS/ML PEN 55 UNITS SC ×3 (11:10→17:28)
[2021-06-16] MEDS: Atenolol 25 MG Tablet PO (14:17)
[2021-06-16] MEDS: Losartan Potassium 50 MG Tablet PO (14:17)
[2021-06-16 14:37] VITALS: BP 128/44; PULSE 79; RESP 16; TEMP 35.8; O2SAT 96
[2021-06-16 15:02] VITALS: PULSE 75; RESP 19
[2021-06-16 16:40] LABS: Bedside Glucose 256 mg/dL (70-110)
[2021-06-16 19:22] VITALS: PULSE 79; RESP 18
[2021-06-16] MEDS: Montelukast 10 MG Tablet PO (20:38)
[2021-06-16] MEDS: Calcium (Elemental) 500 MG Tablet PO (20:38)
[2021-06-16] MEDS: Amitriptyline 25 MG Tablet PO (20:38)
--- NOTE | 2021-06-16 20:59 | NURSING ---
Phone call placed to pharmacy re: form of Lortab. Pt does not like taste of liquid medication. Spoke w/ pharmacist, Ferdinand, who reports Lortab in stock is in liquid form. Only tablet available is [place] 5/325 mg tablets.
[2021-06-16 21:26] LABS: Bedside Glucose 243 mg/dL (70-110)
[2021-06-17] MEDS: HYDROCODONE/APAP 7.5-325/15ML 15 ML UDC PO ×3 (02:52→20:00)
[2021-06-17] MEDS: Atorvastatin Calcium 10 MG Tablet PO (05:49)
[2021-06-17] MEDS: Furosemide 40 MG Tablet PO ×2 (05:49→17:25)
[2021-06-17] MEDS: Fenofibrate 48 MG Tablet 96 MG PO (05:49)
[2021-06-17] MEDS: Clopidogrel Bisulfate 75 MG Tablet PO (05:49)
[2021-06-17] MEDS: Magnesium Chloride 64 MG Delay Rel.Tablet 128 MG PO (05:49)
[2021-06-17] MEDS: Trimethoprim 100 MG Tablet PO (05:50)
[2021-06-17] MEDS: Sertraline 50 MG Tablet 25 MG PO (05:50)
[2021-06-17] MEDS: Polyethylene Glycol 3350 17 GM PACKET PO (05:52)
[2021-06-17] MEDS: Senna/Docusate Sodium 1 Tablet 2 TABLET PO (05:52)
[2021-06-17] MEDS: Nystatin Powder 15gm Bottle 1 APPLIC TOPICAL ×2 (05:53→20:22)
[2021-06-17 06:15] LABS: Bedside Glucose 169 mg/dL (70-110)
[2021-06-17] MEDS: Insulin U-500 UNITS/ML PEN 55 UNITS SC ×3 (07:50→17:26)
[2021-06-17] MEDS: Aspirin E.C. 81 MG Tablet PO (07:51)
[2021-06-17] MEDS: Multivitamins,Ther W-Minerals Tablet 1 TABLET PO (07:51)
--- NOTE | 2021-06-17 08:00 | RAD_ITS ---
STUDY: X-RAY - RIGHT ANKLE REASON FOR EXAM: Status post ORIF of trimalleolar right ankle fracture. TECHNIQUE: 3 view(s) of the ankle. COMPARISON: Intraoperative images 06/13/2021. FINDINGS: There is an orthopedic plate and screws transfixing a distal fibular fracture in anatomical alignment and position. There are orthopedic screws and K wire transfixing a medial malleolar fracture in near anatomical alignment and position and unchanged since the prior study. There is a posterior malleolar fracture. There is syndesmotic fixation. Normal visualized talus and calcaneus. The visualized subtalar, talonavicular, calcaneocuboid and tarsal articulations are normal. There is an overlying splint. There is previous orthopedic hardware from arthrodesis of the first metatarsophalangeal articulation. RAD/Ankle min 3 Views IMPRESSION: No interval change of ORIF of trimalleolar fracture. Electronically Signed: Moy Sarmiento MD at 14:18 EDT Tel , Service support ,
--- NOTE | 2021-06-17 09:25 | PHA.CONS_ITS ---
Progress Note - Pharmacy Subjective: TCU ADMISSION Objective: Allergies ciprofloxacin Allergy (Severe, Verified 06/14/21 23:23) Hives clindamycin Allergy (Severe, Verified 06/14/21 23:23) Hives codeine Allergy (Severe, Verified 06/14/21 23:23) Itching formoterol [From Dulera] Allergy (Severe, Verified 06/14/21 23:23) Unknown mometasone furoate [From Dulera] Allergy (Severe, Verified 06/14/21 23:23) Unknown Penicillins Allergy (Severe, Verified 06/14/21 23:23) Hives Sulfa (Sulfonamide Antibiotics) Allergy (Severe, Verified 06/14/21 23:23) Hives fluticasone [From Advair Diskus] Allergy (Unknown, Verified 06/14/21 23:23) Unknown gemfibrozil [From Lopid] Allergy (Unknown, Verified 06/14/21 23:23) Unknown metformin Allergy (Unknown, Verified 06/14/21 23:23) Upset Stomach diarrhea oxycodone [From Percocet] Allergy (Unknown, Verified 06/14/21 23:23) Rash salmeterol [From Advair Diskus] Allergy (Unknown, Verified 06/14/21 23:23) Unknown Current Medications Generic Name Dose Route Start Last Admin Trade Name Freq PRN Reason Stop Dose Admin Hydrocodone Bitart/Acetaminophen 15 ml 06/14/21 15:30 06/17/21 02:52 Hydrocodone/Apap 7.5-325/15ml 15 Ml Udc PO 15 ml Q6H PRN PRN Administration Pain Score 6-10 Albuterol Sulfate 2.5 mg 06/14/21 14:07 Albuterol 2.5 Mg/3 Ml Vial.Neb. INHALATION Q6H PRN PRN Sob &/Or Wheezing Albuterol/Ipratropium 3 ml 06/14/21 14:15 06/16/21 19:21 Ipratropium/Albuterol Sulfate 3 Ml Ampul.Neb INHALATION 3 ml Q4HWA.RT ALEKS Administration Amitriptyline HCl 25 mg 06/14/21 22:00 06/16/21 20:38 Amitriptyline 25 Mg Tablet PO 25 mg QHS ALEKS Administration Aspirin 81 mg 06/15/21 08:00 06/17/21 07:51 Aspirin E.C. 81 Mg Tablet PO 81 mg BREAKFAST ALEKS Administration Atenolol 25 mg 06/14/21 15:00 06/16/21 14:17 Atenolol 25 Mg Tablet PO 25 mg 1500 ALEKS Administration Atorvastatin Calcium 10 mg 06/15/21 06:00 06/17/21 05:49 Atorvastatin Calcium 10 Mg Tablet PO 10 mg DAILY ALEKS Administration Bisacodyl 10 mg 06/14/21 16:12 Bisacodyl 5 Mg Tablet PO DAILY PRN CONSTIPATION Budesonide 0.5 mg 06/14/21 15:15 06/16/21 19:21 Budesonide Respules 0.5 Mg/2 Ml Ampul.Neb. INHALATION 0.5 mg Q12H.RT ALEKS Administration Calcium Carbonate 500 mg 06/14/21 22:00 06/16/21 20:38 Calcium (Elemental) 500 Mg Tablet PO 500 mg QHS ALEKS Administration Clopidogrel Bisulfate 75 mg 06/15/21 06:00 06/17/21 05:49 Clopidogrel Bisulfate 75 Mg Tablet PO 75 mg DAILY ALEKS Administration Ergocalciferol 1.25 mg 06/21/21 10:00 Ergocalciferol 1.25 Mg (50, 000 Unit) Capsule PO Q7D@1000 [facility] Fenofibrate 96 mg 06/15/21 06:00 06/17/21 05:49 Fenofibrate 48 Mg Tablet PO 96 mg DAILY ALEKS Administration Furosemide 40 mg 06/15/21 06:00 06/17/21 05:49 Furosemide 40 Mg Tablet PO 40 mg BID ALEKS Administration Insulin Human Regular 55 units 06/16/21 10:30 06/17/21 07:50 Insulin U-500 Units/Ml Pen SC 55 u TIDCM ALEKS Administration Protocol Losartan Potassium 50 mg 06/15/21 15:00 06/16/21 14:17 Losartan Potassium 50 Mg Tablet PO 50 mg 1500 ALEKS Administration Magnesium Chloride 128 mg 06/15/21 06:00 06/17/21 05:49 Magnesium Chloride 64 Mg Delay Rel.Tablet PO 128 mg DAILY ALEKS Administration Montelukast Sodium 10 mg 06/14/21 22:00 06/16/21 20:38 Montelukast 10 Mg Tablet PO 10 mg QHS ALEKS Administration Multivitamins/Minerals 1 tablet 06/15/21 08:00 06/17/21 07:51 Multivitamins,Ther W-Minerals Tablet PO 1 tablet BREAKFAST ALEKS Administration Nitroglycerin 0.4 mg 06/14/21 14:59 Nitroglycerin (Inpatient Use) 0.4 Mg Tab.Subl SL Q5M PRN CARDIAC/CHEST PAIN Nystatin 1 applic 06/14/21 18:00 06/17/21 05:53 Nystatin Powder 15gm Bottle TOPICAL 1 applic BID ALEKS Administration Protocol Polyethylene Glycol 17 gm 06/14/21 16:15 06/17/21 05:52 Polyethylene Glycol 3350 17 Gm Packet PO 17 gm DAILY ALEKS Administration Senna/Docusate Sodium 2 tablet 06/14/21 18:00 06/17/21 05:52 Senna/Docusate Sodium 1 Tablet PO 2 tablet BID ALEKS Administration Sertraline HCl 25 mg 06/15/21 06:00 06/17/21 05:50 Sertraline 50 Mg Tablet PO 25 mg DAILY ALEKS Administration Sodium Chloride 10 - 40 ml 06/15/21 01:41 0.9% Saline Lock 10 Ml Syringe IV UD PRN SALINE FLUSH Sodium Chloride 10 - 40 ml 06/16/21 10:28 0.9% Saline Lock 10 Ml Syringe IV UD PRN SALINE FLUSH Trimethoprim 100 mg 06/15/21 06:00 06/17/21 05:50 Trimethoprim 100 Mg Tablet PO 100 mg DAILY ALEKS Administration Tuberculin PPD 0.1 ml 06/22/21 10:00 Tuberculin,Purif.Prot.Deriv. 50 Tu/Ml Vial ID 06/22/21 10:01 X1 ONE Problem List (Last Reviewed 06/14/21 @ 23:[address] Bryant Wisdom MD) Fracture of ankle, trimalleolar, right, closed (Acute) Depression (Acute) Asthma (Acute) Stroke (Acute) Gastroesophageal reflux disease (Acute) Hyperlipidemia (Acute) Hypertension (Chronic) Diabetes mellitus (Acute) Coronary artery disease (Acute) Hypomagnesemia (Acute) Chronic obstructive pulmonary disease (Chronic) Debility (Acute) Polyneuropathy due to type 2 diabetes mellitus (Chronic) Vital Signs Temp Pulse Resp BP Pulse Ox 96.5 F L 79 18 128/44 H 96 06/16/21 14:37 06/16/21 19:22 06/16/21 19:22 06/16/21 14:37 06/16/21 14:37 Oxygen Flow Rate (L/min) 4 Oxygen Delivery Method Nasal Cannula Weight: 99.79 kg Body Mass Index (BMI) 45.9 Sodium 133 mmol/L (136-145) L 06/15/21 07:46 Potassium 5.1 mmol/L (3.5-5.1) 06/15/21 07:46 Chloride 94 mmol/L (98-107) L 06/15/21 07:46 Carbon Dioxide 35.0 mmol/L (21.0-32.0) H 06/15/21 07:46 Anion Gap 4 (5-15) L 06/15/21 07:46 BUN 40 mg/dL (7-18) H 06/15/21 07:46 Creatinine 1.02 mg/dL (0.55-1.02) 06/15/21 07:46 Est GFR (MDRD) Af Amer 69 mL/min (>60) 06/15/21 07:46 Est GFR (MDRD) Non-Af 57 mL/min (>60) L 06/15/21 07:46 BUN/Creatinine Ratio 39.2 RATIO (10-20) H 06/15/21 07:46 Glucose 293 mg/dL (74-106) H 06/15/21 07:46 Assessment/Plan: 1. Pain: Lortab elixer 15ml PO Q6h PRN Pain 6-10. Please continue to monitor for increased/decreased pain, oversedation, PRN medication usage. 2. CAD/HLD: Aspirin 81mg PO Daily, Atenolol 25mg PO Daily, Lipitor 10mg PO Daily, Plavix 75mg PO Daily, Tricor 96mg PO Daily, Losartan 50mg PO Daily, Nitrostat 0.4mg PO Q5m PRN. Please continue to monitor for S/S bleeding/bruising, BP, HR, electrolytes, lipid panel annually or sooner if clinically indicated. 3. Edema: Lasix 40mg PO BID. Please continue to monitor fluid status, electrolytes, renal function. 4. Asthma/COPD: Duoneb inhalation Q4h WA, Pulmicort inhalation BID, Albuterol inhalation Q6h PRN, Singulair 10mg Po QHS. Please continue to monitor respiratory status, PRN medication usage. 5. Diabetes Type II: Insulin U-500 55 units SC TIDCM. Please continue to monitor BG levels, S/S hypoglycemia, A1C as clinically indicated. 6. Recurrent UTI infection: Trimethoprim 100mg PO daily. Please continue to monitor for medication effectiveness, S/S UTI. 7. Vitamin D Deficiency: Ergocalciferol 1.25mg (50,000 units) PO Once Weekly. Please continue to monitor Vitamin D levels as clinically indicated. 8. General Wellness: Calcium carbonate 500mg PO QHS, Magnesium chloride 128mg PO Daily, MVI 1 tab PO Daily, Psychotropic Medications: 9. Insomnia: Amitriptyline 25mg PO QHS. Please see note in H/P regarding GDR recommendation, thank you. 10. Depression: Zoloft 25mg PO Daily. Please see note in H/P regarding GDR recommendation, thank you. Unnecessary Medications: None Bowel Regimen: Miralax 17g PO Daily, Senna/Docusate 2 tab PO BID, Dulcolax 10mg PO Daily PRN. Please continue to monitor for S/S increased/decreased constipation and/or diar jayesh. Date of Note:: 06/17/21
[2021-06-17 11:06] LABS: Bedside Glucose 285 mg/dL (70-110)
[2021-06-17 13:25] VITALS: PULSE 75; RESP 18; O2SAT 97
[2021-06-17] MEDS: Ipratropium/Albuterol Sulfate 3 ML AMPUL.NEB INHALATION ×2 (13:30→18:48)
[2021-06-17] MEDS: Losartan Potassium 50 MG Tablet PO (14:13)
[2021-06-17] MEDS: Atenolol 25 MG Tablet PO (14:13)
[2021-06-17 14:28] VITALS: BP 125/63; PULSE 69; RESP 18; TEMP 36.3; O2SAT 96
--- NOTE | 2021-06-17 15:43 | NURSING ---
Pt updated on new med of oxybutynin pt got upset d/t pt saying she is on Lasix's and that is why she is peeing so much and that its not her choice to be here she has to be here. Educated pt on why Dr. Zacarias prescribed medication.
[2021-06-17 16:21] LABS: Bedside Glucose 224 mg/dL (70-110)
--- NOTE | 2021-06-17 17:30 | NURSING ---
PT REFUSED DITROPAN. PT STATED YOU KNOW YOU ALL GIVE ME LASIX TWICE A DAY AND THEN GET MAD FOR COMING AND GETTING ME TO THE BEDSIDE AND EXPECT ME NOT TO PEE A LOT. RN AWARE
[2021-06-17 18:48] VITALS: PULSE 66; RESP 14; O2SAT 97
[2021-06-17] MEDS: Budesonide Respules 0.5 MG/2 ML AMPUL.NEB. INHALATION (18:48)
[2021-06-17] MEDS: Amitriptyline 25 MG Tablet PO (20:18)
[2021-06-17] MEDS: Montelukast 10 MG Tablet PO (20:19)
[2021-06-17] MEDS: Calcium (Elemental) 500 MG Tablet PO (20:19)
--- NOTE | 2021-06-17 20:30 | NURSING ---
Discussed Oxybutynin desired and side effects at length with pt. Verbalizes some concerns with Lasix and thinks medication will decreased effectiveness of Lasix. Informed medications have two separate purposes and would not counteract one another. Continues to decline medication at this time. Encouraged to reconsider taking medication to decrease frequency of urination to conserve energy. She verbalizes understanding.
[2021-06-17 21:45] LABS: Bedside Glucose 327 mg/dL (70-110)
--- NOTE | 2021-06-17 22:03 | NURSING ---
Paged Dr. Montgomery w/ immediate return phone call. Updated on HS blood sugar of 327. New order received and read back for 30 units of Humulin R U-500 x1.
[2021-06-17] MEDS: Insulin U-500 UNITS/ML PEN 30 UNITS SC (22:46)
[2021-06-18] MEDS: HYDROCODONE/APAP 7.5-325/15ML 15 ML UDC PO ×3 (04:54→18:39)
[2021-06-18] MEDS: Magnesium Chloride 64 MG Delay Rel.Tablet 128 MG PO (04:56)
[2021-06-18] MEDS: Fenofibrate 48 MG Tablet 96 MG PO (04:57)
[2021-06-18] MEDS: Trimethoprim 100 MG Tablet PO (04:57)
[2021-06-18] MEDS: Furosemide 40 MG Tablet PO ×2 (04:57→18:36)
[2021-06-18] MEDS: Atorvastatin Calcium 10 MG Tablet PO (04:57)
[2021-06-18] MEDS: Clopidogrel Bisulfate 75 MG Tablet PO (04:58)
[2021-06-18] MEDS: Sertraline 50 MG Tablet 25 MG PO (04:58)
[2021-06-18] MEDS: Nystatin Powder 15gm Bottle 1 APPLIC TOPICAL ×2 (05:02→23:21)
[2021-06-18 05:04] VITALS: BP 128/40; PULSE 66; RESP 210; TEMP 35.8; O2SAT 99
[2021-06-18 06:20] LABS: Bedside Glucose 234 mg/dL (70-110)
[2021-06-18] MEDS: Budesonide Respules 0.5 MG/2 ML AMPUL.NEB. INHALATION ×2 (07:45→19:27)
[2021-06-18] MEDS: Ipratropium/Albuterol Sulfate 3 ML AMPUL.NEB INHALATION ×2 (07:45→19:27)
[2021-06-18] MEDS: Aspirin E.C. 81 MG Tablet PO (08:01)
[2021-06-18] MEDS: Multivitamins,Ther W-Minerals Tablet 1 TABLET PO (08:01)
--- NOTE | 2021-06-18 08:08 | NURSING ---
Continues to refuse Oxybutynin at this time.
[2021-06-18] MEDS: Insulin U-500 UNITS/ML PEN 65 UNITS SC ×3 (08:09→18:36)
[2021-06-18 09:54] LABS: Bedside Glucose 346 mg/dL (70-110)
[2021-06-18 13:03] VITALS: PULSE 68; RESP 20; O2SAT 93
[2021-06-18] MEDS: Losartan Potassium 50 MG Tablet PO (14:42)
[2021-06-18] MEDS: Atenolol 25 MG Tablet PO (14:42)
[2021-06-18 16:00] VITALS: BP 133/52; PULSE 68; RESP 20; TEMP 36.2; O2SAT 97
--- NOTE | 2021-06-18 17:00 | CHAPLAIN ---
Type of Pastoral Visit _x__ Initial Visit ___ Follow-up Visit ___ On-call Visit ___ General Patient Visit ___ Spiritual Assessment ___ Family Conference ___ Bereavement ___ Rapid Response ___ Code Blue ___ Other (describe below) Pastoral Care Referral From _x__ Patient ___ Family ___ Nurse ___ Physician ___ Broadcast Technician ___ Head Start Coordinator ___ Other (describe below) Sacrament/Intervention _x__ Active listening ___ Anointing ___ Jehovah'S Witness ___ Bereavement ___ Communion ___ Nini exploration ___ _x__ Life review _x__ Prayer ___ Reconciliation ___ Sacrament of Sick _x__ Supportive presence ___ Wedding ___ Other (describe below) Pastoral Comments patient is welcoming of visit and says it is hard to just stare at four shane; pt is very talkative and speaks of her fall, her home remodel, and her concerns for her who is having to do so much right now; pt has a congregation connection but has not been attending for three years due to health issues; spouse of pt is active in congregation and I hope he will keep on going to congregation even when he has to take care of me;
[2021-06-18 17:45] LABS: Bedside Glucose 240 mg/dL (70-110)
[2021-06-18 19:27] VITALS: PULSE 66; RESP 20; O2SAT 96
[2021-06-18 22:05] LABS: Bedside Glucose 341 mg/dL (70-110)
[2021-06-18] MEDS: Amitriptyline 25 MG Tablet PO (23:22)
[2021-06-18] MEDS: Calcium (Elemental) 500 MG Tablet PO (23:23)
[2021-06-18] MEDS: Montelukast 10 MG Tablet PO (23:23)
[2021-06-19 06:30] LABS: Bedside Glucose 204 mg/dL (70-110)
[2021-06-19] MEDS: Magnesium Chloride 64 MG Delay Rel.Tablet 128 MG PO (06:44)
[2021-06-19] MEDS: Senna/Docusate Sodium 1 Tablet 2 TABLET PO (06:44)
[2021-06-19] MEDS: Trimethoprim 100 MG Tablet PO (06:44)
[2021-06-19] MEDS: Fenofibrate 48 MG Tablet 96 MG PO (06:44)
[2021-06-19] MEDS: Clopidogrel Bisulfate 75 MG Tablet PO (06:45)
[2021-06-19] MEDS: Sertraline 50 MG Tablet 25 MG PO (06:45)
[2021-06-19] MEDS: Furosemide 40 MG Tablet PO ×2 (06:45→17:49)
[2021-06-19 06:53] VITALS: PULSE 74; RESP 16; O2SAT 96
[2021-06-19] MEDS: Budesonide Respules 0.5 MG/2 ML AMPUL.NEB. INHALATION ×2 (06:53→19:05)
[2021-06-19] MEDS: Ipratropium/Albuterol Sulfate 3 ML AMPUL.NEB INHALATION ×2 (06:53→19:05)
[2021-06-19] MEDS: Aspirin E.C. 81 MG Tablet PO (08:00)
[2021-06-19] MEDS: HYDROCODONE/APAP 7.5-325/15ML 15 ML UDC PO ×2 (08:00→20:15)
[2021-06-19] MEDS: Multivitamins,Ther W-Minerals Tablet 1 TABLET PO (08:00)
[2021-06-19] MEDS: Nystatin Powder 15gm Bottle 1 APPLIC TOPICAL ×2 (08:01→17:50)
[2021-06-19] MEDS: Insulin U-500 UNITS/ML PEN 65 UNITS SC ×3 (08:03→17:49)
[2021-06-19] MEDS: Atorvastatin Calcium 10 MG Tablet PO (08:03)
--- NOTE | 2021-06-19 10:22 | CASEMGMT ---
Social Work IDT met with patient and for care plan meeting. Discussed patient's progress in therapy and nursing. Pt is currently NWBS and therapy recommended ramp to enter home at [facility]. Provided pt/ with ramp/handrail/grab bar resources. SW to assist with providing any DME or other resources at [place]. Pt has home O2 but currently increased, and has home cpap. The goal is for pt to return home with . Explained Medicare benefit. Encouraged to contact secondary insurance to ensure copay coverage. Answered pt's questions/concerns. SW to continue to follow for discharge plans and emotional support. Dolores Elder, MELLY ENRICHMENT TEACHER
--- NOTE | 2021-06-19 11:03 | NURSING ---
Resident takes her own blood sugar. Reports it being 415. Will medicate with insulin at this time.
--- NOTE | 2021-06-19 12:33 | CASEMGMT ---
Addendum entered by Mary Rosales 06/19/21 13:17: SW did give pt a list of private hire aide agencies, and information for [employer] and [employer] home delivered meals. HECTOR Chiang Original Note: Social Work SW met w/pt and in room. Discussed CODE status w/pt. At this time she is staying with being a full code, but does want to revisit at this time. MOLST form deferred at this time due to pt not being certain if wants to stay a full code. encouraging pt to stay a full code. SW reviewed Medicare benefit, was aware and was already instructed to call the secondary insurance to check on coverage. Goal is for pt to return home w/, pt wants to go home as soon as possible. Pt is open to home health, and possibly open to additional private hire aides as well. They may also be interested in home delivered meals, as per , there is a wait list for [employer]. SW educated to other options including [employer] and [employer]. Pt also interested in completing LW/POA forms while here. SW will continue to follow, will assist with LW/POA as time allows. SW will also continue to follow for emotional support. HECTOR Chiang
--- NOTE | 2021-06-19 13:12 | NURSING ---
Pt requesting to cut back on some of medications, feels like she is taking to much. Dr. Zacarias updated N.O. to d/c tricor, taper off Elavil- give 12.5mg QHS x3 days then stop, increase zoloft to 50mg as long as pt is agreeable. This nurse updated pt and pt states yes I am happy with what the doctor wants to do and I want to try it, its a start. Charge nurse updated on pt request.
[2021-06-19 15:28] VITALS: BP 103/47; PULSE 63; RESP 18; TEMP 36.1; O2SAT 97
[2021-06-19 15:30] VITALS: BP 143/48
[2021-06-19] MEDS: Atenolol 25 MG Tablet PO (15:33)
--- NOTE | 2021-06-19 17:47 | NURSING ---
pt checked own Blood sugar with freestyle claire machine supper 336
[2021-06-19 19:07] VITALS: PULSE 62; RESP 18
[2021-06-19 20:24] VITALS: PULSE 54; RESP 16; O2SAT 97
[2021-06-19 21:55] LABS: Bedside Glucose 303 mg/dL (70-110)
[2021-06-19] MEDS: Amitriptyline 25 MG Tablet 12.5 MG PO (22:27)
[2021-06-19] MEDS: Montelukast 10 MG Tablet PO (22:28)
[2021-06-19] MEDS: Calcium (Elemental) 500 MG Tablet PO (22:28)
[2021-06-20] MEDS: HYDROCODONE/APAP 7.5-325/15ML 15 ML UDC PO ×3 (03:47→19:43)
[2021-06-20 06:00] VITALS: BP 116/39; PULSE 56
[2021-06-20] MEDS: Furosemide 40 MG Tablet PO ×2 (06:01→17:36)
[2021-06-20] MEDS: Sertraline 50 MG Tablet PO (06:02)
[2021-06-20] MEDS: Clopidogrel Bisulfate 75 MG Tablet PO (06:02)
[2021-06-20] MEDS: Trimethoprim 100 MG Tablet PO (06:02)
[2021-06-20] MEDS: Atorvastatin Calcium 10 MG Tablet PO (06:02)
[2021-06-20] MEDS: Magnesium Chloride 64 MG Delay Rel.Tablet 128 MG PO (06:02)
[2021-06-20] MEDS: Nystatin Powder 15gm Bottle 1 APPLIC TOPICAL ×2 (06:03→17:38)
[2021-06-20 06:26] LABS: Bedside Glucose 187 mg/dL (70-110)
[2021-06-20 07:00] VITALS: PULSE 58; RESP 16; O2SAT 91
[2021-06-20] MEDS: Insulin U-500 UNITS/ML PEN 65 UNITS SC ×3 (08:08→17:35)
[2021-06-20] MEDS: Aspirin E.C. 81 MG Tablet PO (08:09)
[2021-06-20] MEDS: Multivitamins,Ther W-Minerals Tablet 1 TABLET PO (08:09)
[2021-06-20 11:00] LABS: Bedside Glucose 322 mg/dL (70-110)
[2021-06-20 11:20] VITALS: RESP 18
[2021-06-20] MEDS: Ipratropium/Albuterol Sulfate 3 ML AMPUL.NEB INHALATION ×3 (11:20→20:15)
--- NOTE | 2021-06-20 12:20 | PN_ITS ---
Subjective Subjective This 70-year-old female was seen status post 1 week right open reduction internal fixation of trimalleolus ankle fracture. She denies fever, chill, nausea, vomiting, calf pain, shortness of breath or chest pain. Her pain is reduced compared to her last visit. She has been compliant in the transitional care unit with maintaining a nonweightbearing status. Objective Data Objective Data Vital Signs: Vital Signs Temp Pulse Resp BP Pulse Ox 97 F L 58 L 18 116/39 L 91 06/19/21 15:28 06/20/21 07:00 06/20/21 11:20 06/20/21 06:00 06/20/21 07:00 Oxygen Flow Rate (L/min) 3.5 Oxygen Delivery Method Nasal Cannula Weight: 99.337 kg Body Mass Index (BMI) 45.9 Intake & Output: Intake and Output for Last 24 Hours 06/18/21 06/19/21 06/20/21 23:59 23:59 23:59 Intake Total 720 / 720 840 / 840 600 / 600 Balance 720 / 720 840 / 840 600 / 600 Lab / Micro Data Result Diagrams: 06/15/21 07:46 06/15/21 07:46 Labs: Laboratory Results - last 24 hr 06/19/21 21:46: POC Glucose 303 H 06/20/21 06:18: POC Glucose 187 H 06/20/21 10:50: POC Glucose 322 H Physical Exam Const alert and oriented x3 General Appearance: cooperative and comfortable Extremity Extremity Narrative: Right lower extremity surgical limb is in a rectus position and splint which is clean dry and intact. The sutures to the lateral ankle and to a lesser degree to the medial ankle are intact without gapping, necrosis or maceration. No adjacent streaking, redness, strikethrough or odor. Her skin is atrophic. Negative Finch sign bilateral. Active range of motion of all digits of the right foot. Compartments remain soft to palpate to the entire right lower extremity. Neuro Neuro Narrative: Lack of epicritic sensation light touch to toes consistent with neuropathic status right lower extremity. Assessment & Plan Assessment/Plan (1) Debility: (2) Closed right trimalleolar fracture: (3) Polyneuropathy due to type 2 diabetes mellitus: PLAN: This patient was seen postoperative day #7. She is overall stable and remains afebrile. Her anticipated post operative course and management were reviewed today with the patient. Her vital signs are stable. Her dressing and splint are clean, dry, and intact. Her dressing was changed with Betadine gauze and her well-padded posterior mold splint was reapplied. To continue to offload this site. To maintain a strict nonweightbearing status. She will work with PT and OT while in the transitional care unit. Her pain reduction is noted; she has oral pain medication ordered.To continue to ice and elevate for pain control also. Edema reduction is noted with Lasix and Gabriel wrap application. To continue to use incentive spirometer. To optimize healing with nutritional supplementation. Vitamin D prescription started due to deficient levels to optimize bone healing. She is multiple comorbidities and is at risk for healing complications. The turning and beading machine operator is on consultation for input to optimize healing and also for improved glucose managem ent. Medical management per Dr. Zacarias is appreciated. Please do not hesitate to call if you have any questions. I will continue to follow her while in the transitional care unit on a weekly basis. Leslie Palmer DPM, FACFAS [facility] [phone]
[2021-06-20 14:21] VITALS: BP 145/54; PULSE 67; RESP 18; TEMP 36.6; O2SAT 96
--- NOTE | 2021-06-20 14:42 | MDS.RN ---
Pain interview for ALEJANDRA 06/21/21 completed.
--- NOTE | 2021-06-20 14:45 | MDS.RN ---
Pain interview for ALEJANDRA 06/21/21.
[2021-06-20 15:50] VITALS: PULSE 57; RESP 18
--- NOTE | 2021-06-20 16:13 | NURSING ---
BS 232 at this time, checked with pt personal glucose reader
[2021-06-20] MEDS: Atenolol 25 MG Tablet PO (16:15)
[2021-06-20] MEDS: Losartan Potassium 50 MG Tablet PO (16:15)
[2021-06-20] MEDS: Senna/Docusate Sodium 1 Tablet 2 TABLET PO (17:37)
[2021-06-20 20:15] VITALS: PULSE 58; RESP 20
[2021-06-20] MEDS: Budesonide Respules 0.5 MG/2 ML AMPUL.NEB. INHALATION (20:15)
[2021-06-20] MEDS: Amitriptyline 25 MG Tablet 12.5 MG PO (21:21)
[2021-06-20] MEDS: Montelukast 10 MG Tablet PO (21:22)
[2021-06-20] MEDS: Calcium (Elemental) 500 MG Tablet PO (21:22)
[2021-06-20 21:25] LABS: Bedside Glucose 329 mg/dL (70-110)
[2021-06-21] MEDS: HYDROCODONE/APAP 7.5-325/15ML 15 ML UDC PO ×3 (03:09→22:24)
[2021-06-21] MEDS: Trimethoprim 100 MG Tablet PO (05:05)
[2021-06-21] MEDS: Atorvastatin Calcium 10 MG Tablet PO (05:05)
[2021-06-21] MEDS: Clopidogrel Bisulfate 75 MG Tablet PO (05:05)
[2021-06-21] MEDS: Magnesium Chloride 64 MG Delay Rel.Tablet 128 MG PO (05:05)
[2021-06-21] MEDS: Sertraline 50 MG Tablet PO (05:05)
[2021-06-21] MEDS: Furosemide 40 MG Tablet PO ×2 (05:06→14:27)
[2021-06-21] MEDS: Nystatin Powder 15gm Bottle 1 APPLIC TOPICAL ×2 (05:09→17:03)
[2021-06-21 05:14] VITALS: BP 116/53; PULSE 56
[2021-06-21 06:26] LABS: Bedside Glucose 183 mg/dL (70-110)
[2021-06-21 07:00] VITALS: PULSE 58; RESP 16; O2SAT 98
[2021-06-21] MEDS: Budesonide Respules 0.5 MG/2 ML AMPUL.NEB. INHALATION ×2 (07:00→19:28)
[2021-06-21] MEDS: Ipratropium/Albuterol Sulfate 3 ML AMPUL.NEB INHALATION ×2 (07:00→19:28)
[2021-06-21] MEDS: Insulin U-500 UNITS/ML PEN 65 UNITS SC ×3 (08:27→17:02)
[2021-06-21] MEDS: Multivitamins,Ther W-Minerals Tablet 1 TABLET PO (08:27)
[2021-06-21] MEDS: Aspirin E.C. 81 MG Tablet PO (08:27)
[2021-06-21] MEDS: Ergocalciferol 1.25 MG (50, 000 UNIT) Capsule PO (10:59)
[2021-06-21 11:11] LABS: Bedside Glucose 285 mg/dL (70-110)
[2021-06-21 12:08] LABS: DHEA Sulfate 3.9 ug/dL (20.4-186.6)
[2021-06-21 12:36] LABS: Adrenocorticotropic Hormone 1.9 pg/mL (7.2-63.3)
[2021-06-21] MEDS: Atenolol 25 MG Tablet PO (14:26)
[2021-06-21] MEDS: Losartan Potassium 50 MG Tablet PO (14:26)
[2021-06-21 15:44] VITALS: BP 115/52; PULSE 67; RESP 16; TEMP 36.1; O2SAT 93
[2021-06-21 16:40] LABS: Bedside Glucose 201 mg/dL (70-110)
--- NOTE | 2021-06-21 16:49 | CASEMGMT ---
Social Work BIMS and PHQ-9 completed for MDS assessment. Dolores Elder, EDITING CLERK STENOTYPE OPERATOR
[2021-06-21 19:28] VITALS: PULSE 68; RESP 19
[2021-06-21] MEDS: Montelukast 10 MG Tablet PO (21:25)
[2021-06-21] MEDS: Amitriptyline 25 MG Tablet 12.5 MG PO (21:25)
[2021-06-21] MEDS: Calcium (Elemental) 500 MG Tablet PO (21:25)
[2021-06-21 21:26] LABS: Bedside Glucose 197 mg/dL (70-110)
[2021-06-22] VITALS (8 sets, daily range): BP systolic 126; BP diastolic 52; PULSE 54–80; RESP 18–22; TEMP 36.3; O2SAT 94–98
--- NOTE | 2021-06-22 03:26 | NURSING ---
Phone call placed to RT to administer aerosol tx. Pt experiencing difficulty clearing secretions. O2 at 4 lpm via nc. In no acute distress.
[2021-06-22] MEDS: Ipratropium/Albuterol Sulfate 3 ML AMPUL.NEB INHALATION ×6 (03:40→19:50)
[2021-06-22] MEDS: HYDROCODONE/APAP 7.5-325/15ML 15 ML UDC PO ×3 (05:13→17:53)
[2021-06-22] MEDS: Magnesium Chloride 64 MG Delay Rel.Tablet 128 MG PO (05:14)
[2021-06-22] MEDS: Trimethoprim 100 MG Tablet PO (05:15)
[2021-06-22] MEDS: Senna/Docusate Sodium 1 Tablet 2 TABLET PO (05:15)
[2021-06-22] MEDS: Clopidogrel Bisulfate 75 MG Tablet PO (05:15)
[2021-06-22] MEDS: Sertraline 50 MG Tablet PO (05:16)
[2021-06-22] MEDS: Furosemide 40 MG Tablet PO ×2 (05:16→14:34)
[2021-06-22] MEDS: Atorvastatin Calcium 10 MG Tablet PO (05:16)
[2021-06-22] MEDS: Nystatin Powder 15gm Bottle 1 APPLIC TOPICAL ×2 (05:17→21:19)
[2021-06-22 06:30] LABS: Bedside Glucose 208 mg/dL (70-110)
[2021-06-22] MEDS: Budesonide Respules 0.5 MG/2 ML AMPUL.NEB. INHALATION ×2 (06:55→19:50)
--- NOTE | 2021-06-22 07:39 | PCA ---
pt refused to wash up and change clothing, pt stated i want to wait for OT explained to pt that OT may or not may not be able to do a wash up with you today pt stated well we will see. will go back later on in day and readdress AM care with patient if OT is unable.
[2021-06-22] MEDS: Insulin U-500 UNITS/ML PEN 65 UNITS SC ×3 (08:02→17:10)
[2021-06-22] MEDS: Aspirin E.C. 81 MG Tablet PO (08:04)
[2021-06-22] MEDS: Multivitamins,Ther W-Minerals Tablet 1 TABLET PO (08:04)
[2021-06-22 08:49] LABS: Absolute Lymphocyte Count 1.65 X10^3/uL (0.83-4.51); Absolute Neutrophil Count 6.1 X10^3/uL (2.0-7.7); Basophil# 0.03 X10^3/uL; Basophil% 0.3 % (0-1); Eosinophils% 1.2 % (0-5); Hematocrit 33.4 % (37-47); Hemoglobin 10.5 g/dL (12.0-15.0); Lymphocyte # 1.65 X10^3/ul (0.83-4.51); Lymphocyte % 19.2 % (19-41); Mean Corp Hgb Conc 31.4 g/dL (32-36); Mean Corpuscular Hgb 30.3 pg (27.0-32.0); Mean Corpuscular Volume 96.5 fL (81-99); Mean Platelet Vol. 11.8 fl (6.2-12.0); Monocyte# 0.69 X10^3/uL; NRBC Flagged by Analyzer 0 % (0-5); Neutrophil # 6.06 X10^3/uL (2.7-7.7); Neutrophil % 70.7 % (47-70); Platelet Count 171 K/mm3 (150-450); RBC Distribution Width CV 14.3 % (11.6-14.6); RBC Distribution Width SD 50.3 fl (35.1-43.9); Red Blood Count 3.46 M/mm3 (4.2-5.4); White Blood Count 8.6 K/mm3 (4.4-11.0)
[2021-06-22 09:14] LABS: Anion Gap 10 (5-15); BUN 57 mg/dL (7-18); BUN/Creat Ratio 46.7 RATIO (10-20); Calcium,Total 9.3 mg/dL (8.5-10.1); Chloride 93 mmol/L (98-107); Creatinine, Serum 1.22 mg/dL (0.55-1.02); EST Glomerular Filtration Rate 46 mL/min (>60); Est Glom Filt Rate - Afr Amer 56 mL/min (>60); Estimated Creatinine Clearance 66.33 ml/min; Glucose 196 mg/dL (74-106); Potassium 4.4 mmol/L (3.5-5.1); Sodium Level 130 mmol/L (136-145)
[2021-06-22] MEDS: Tuberculin,Purif.prot.deriv. 50 TU/ML Vial 0.1 ML ID (11:08)
--- NOTE | 2021-06-22 11:30 | NURSING ---
pt had shower today, RT leg wrapped with plastic
[2021-06-22] MEDS: Losartan Potassium 50 MG Tablet PO (14:34)
[2021-06-22] MEDS: Atenolol 25 MG Tablet PO (14:34)
--- NOTE | 2021-06-22 16:06 | NURSING ---
blood sugar 274
--- NOTE | 2021-06-22 17:08 | NURSING ---
blood sugar 189
[2021-06-22] MEDS: Calcium (Elemental) 500 MG Tablet PO (21:14)
[2021-06-22] MEDS: Montelukast 10 MG Tablet PO (21:14)
[2021-06-22] MEDS: Amitriptyline 25 MG Tablet 12.5 MG PO (21:15)
[2021-06-22 22:01] LABS: Bedside Glucose 255 mg/dL (70-110)
[2021-06-23] MEDS: HYDROCODONE/APAP 7.5-325/15ML 15 ML UDC PO ×4 (00:13→21:33)
[2021-06-23] MEDS: Trimethoprim 100 MG Tablet PO (04:47)
[2021-06-23] MEDS: Furosemide 40 MG Tablet PO ×2 (04:47→15:21)
[2021-06-23] MEDS: Atorvastatin Calcium 10 MG Tablet PO (04:47)
[2021-06-23] MEDS: Clopidogrel Bisulfate 75 MG Tablet PO (04:48)
[2021-06-23] MEDS: Magnesium Chloride 64 MG Delay Rel.Tablet 128 MG PO (04:48)
[2021-06-23] MEDS: Sertraline 50 MG Tablet PO (04:48)
[2021-06-23] MEDS: Nystatin Powder 15gm Bottle 1 APPLIC TOPICAL ×2 (04:49→20:30)
[2021-06-23 06:53] VITALS: PULSE 75; RESP 20; O2SAT 96
[2021-06-23] MEDS: Budesonide Respules 0.5 MG/2 ML AMPUL.NEB. INHALATION ×2 (06:53→19:02)
[2021-06-23] MEDS: Ipratropium/Albuterol Sulfate 3 ML AMPUL.NEB INHALATION ×3 (06:53→19:02)
[2021-06-23] MEDS: Insulin U-500 UNITS/ML PEN 65 UNITS SC ×3 (07:59→17:11)
[2021-06-23] MEDS: Aspirin E.C. 81 MG Tablet PO (08:03)
[2021-06-23] MEDS: Multivitamins,Ther W-Minerals Tablet 1 TABLET PO (08:03)
--- NOTE | 2021-06-23 09:14 | NURSING ---
PT COMPLAINING OF NOT FEELING GOOD CAUSE SHE WAS SO TIRED AND PAINFUL. ASKED PT IF SHE SLEPT LAST NIGHT PT STATED NO. PER DEPUTY CHIEF COUNSEL NURSE PT WAS UP MOST OF NIGHT AND REFUSED PURWICK DO TO NOT LIKING IT. EXPLAINED TO PT THAT SHE NEEDS TO GO TO SLEEP AFTER BREAKFAST AND TRY AND GET SOME SLEEP AND USE THE PURWICK CAUSE SHE WOULD GET MORE RESTFUL SLEEP DO TO NOT GETTING UP EVERY LITTLE BIT FOR BATH ROOM AND IF SHE DONT GET ENOUGH SLEEP SHE WILL NOT GET BETTER AND MAY HAVE OTHER PROBLEMS ARISE. PT UNDER STOOD. PRN PAIN MED GIVEN. RN AWARE.
--- NOTE | 2021-06-23 09:46 | NURSING ---
PT IS RESTING COMFORTABLY.
[2021-06-23 10:00] VITALS: PULSE 85; RESP 18; O2SAT 96
--- NOTE | 2021-06-23 12:05 | NURSING ---
blood sugar 287
[2021-06-23 14:35] VITALS: PULSE 72; RESP 20
[2021-06-23] MEDS: Losartan Potassium 50 MG Tablet PO (15:21)
[2021-06-23] MEDS: Atenolol 25 MG Tablet PO (15:21)
[2021-06-23 15:22] VITALS: BP 134/56; PULSE 66; RESP 18; TEMP 36.3; O2SAT 96
[2021-06-23 19:02] VITALS: PULSE 70; RESP 18
[2021-06-23] MEDS: Calcium (Elemental) 500 MG Tablet PO (20:32)
[2021-06-23] MEDS: Montelukast 10 MG Tablet PO (20:35)
--- NOTE | 2021-06-23 21:20 | NURSING ---
Blood sugar 204
--- NOTE | 2021-06-23 21:40 | NURSING ---
notified via telephone of patient request for referral to Diabetes clinic at [facility] at discharge. Dr. Zacarias agrees to pt. request for referral.
[2021-06-24] MEDS: Furosemide 40 MG Tablet PO (04:37)
[2021-06-24] MEDS: Clopidogrel Bisulfate 75 MG Tablet PO (04:38)
[2021-06-24] MEDS: Magnesium Chloride 64 MG Delay Rel.Tablet 128 MG PO (04:38)
[2021-06-24] MEDS: Trimethoprim 100 MG Tablet PO (04:38)
[2021-06-24] MEDS: Atorvastatin Calcium 10 MG Tablet PO (04:38)
[2021-06-24] MEDS: Sertraline 50 MG Tablet PO (04:38)
[2021-06-24] MEDS: HYDROCODONE/APAP 7.5-325/15ML 15 ML UDC PO ×3 (04:39→19:42)
[2021-06-24] MEDS: Nystatin Powder 15gm Bottle 1 APPLIC TOPICAL ×2 (04:40→17:12)
--- NOTE | 2021-06-24 06:26 | NURSING ---
AM fasting Blood sugar 277 per patient report
[2021-06-24] MEDS: Multivitamins,Ther W-Minerals Tablet 1 TABLET PO (08:17)
[2021-06-24] MEDS: Aspirin E.C. 81 MG Tablet PO (08:17)
[2021-06-24] MEDS: Insulin U-500 UNITS/ML PEN 65 UNITS SC ×3 (08:17→17:11)
[2021-06-24 10:59] VITALS: PULSE 59; RESP 16; O2SAT 94
--- NOTE | 2021-06-24 11:52 | NURSING ---
bs 270 via freestyle monitor on pt arm
[2021-06-24 13:46] VITALS: PULSE 78; RESP 16; O2SAT 94
[2021-06-24] MEDS: Ipratropium/Albuterol Sulfate 3 ML AMPUL.NEB INHALATION ×2 (13:46→19:01)
[2021-06-24 14:17] VITALS: BP 133/63; PULSE 92; RESP 16; TEMP 36.4; O2SAT 96
[2021-06-24] MEDS: Losartan Potassium 50 MG Tablet PO (15:36)
[2021-06-24] MEDS: Atenolol 25 MG Tablet PO (15:36)
--- NOTE | 2021-06-24 16:37 | CASEMGMT ---
Social Work Visited pt. Inquired about mood. Pt stable, just discouraged with not being independent and having her help with everything. Conversed with patient for awhile providing support. Pt reports is very supportive and a good listening ear. Offered continued assistance. Pt appreciative. Dolores Elder, FOOTBALL SCOUT ANGULAR DEVELOPER
[2021-06-24 19:01] VITALS: PULSE 56; RESP 16
[2021-06-24] MEDS: Budesonide Respules 0.5 MG/2 ML AMPUL.NEB. INHALATION (19:01)
[2021-06-24] MEDS: Calcium (Elemental) 500 MG Tablet PO (21:28)
[2021-06-24] MEDS: Montelukast 10 MG Tablet PO (21:28)
[2021-06-25] MEDS: HYDROCODONE/APAP 7.5-325/15ML 15 ML UDC PO ×4 (02:28→23:18)
[2021-06-25 05:02] VITALS: BP 133/45; PULSE 61; O2SAT 99
[2021-06-25] MEDS: Magnesium Chloride 64 MG Delay Rel.Tablet 128 MG PO (05:02)
[2021-06-25] MEDS: Sertraline 50 MG Tablet PO (05:03)
[2021-06-25] MEDS: Furosemide 40 MG Tablet PO (05:03)
[2021-06-25] MEDS: Clopidogrel Bisulfate 75 MG Tablet PO (05:03)
[2021-06-25] MEDS: Trimethoprim 100 MG Tablet PO (05:04)
[2021-06-25] MEDS: Atorvastatin Calcium 10 MG Tablet PO (05:04)
[2021-06-25] MEDS: Nystatin Powder 15gm Bottle 1 APPLIC TOPICAL ×2 (05:05→21:49)
[2021-06-25] MEDS: Insulin U-500 UNITS/ML PEN 65 UNITS SC ×3 (08:24→17:13)
[2021-06-25] MEDS: Aspirin E.C. 81 MG Tablet PO (08:24)
[2021-06-25] MEDS: Multivitamins,Ther W-Minerals Tablet 1 TABLET PO (08:25)
--- NOTE | 2021-06-25 11:55 | NURSING ---
pt blood sugar was 317. pt uses own home unit to check.
[2021-06-25] MEDS: Losartan Potassium 50 MG Tablet PO (15:55)
[2021-06-25] MEDS: Atenolol 25 MG Tablet PO (15:55)
[2021-06-25 15:57] VITALS: BP 119/81; PULSE 62
[2021-06-25 16:18] VITALS: BP 120/59; PULSE 65; RESP 18; TEMP 36.3; O2SAT 96
[2021-06-25 17:10] VITALS: O2SAT 96
--- NOTE | 2021-06-25 17:15 | NURSING ---
PT DID OWN BLOOD SUGAR WITH HOME METER. 227.
[2021-06-25] MEDS: Montelukast 10 MG Tablet PO (21:49)
[2021-06-25] MEDS: Calcium (Elemental) 500 MG Tablet PO (21:50)
[2021-06-25 23:42] VITALS: PULSE 59; RESP 14; O2SAT 99
--- NOTE | 2021-06-26 03:30 | NURSING ---
Pt takes own blood sugar. HS reading was 229. At 3:30 pt called and stated bs was 70. Juice and grahm crackers given.
[2021-06-26] MEDS: Atorvastatin Calcium 10 MG Tablet PO (05:34)
[2021-06-26] MEDS: Magnesium Chloride 64 MG Delay Rel.Tablet 128 MG PO (05:34)
[2021-06-26] MEDS: Furosemide 40 MG Tablet PO (05:34)
[2021-06-26] MEDS: Nystatin Powder 15gm Bottle 1 APPLIC TOPICAL ×2 (05:35→20:24)
[2021-06-26] MEDS: Sertraline 50 MG Tablet PO (05:36)
[2021-06-26] MEDS: Trimethoprim 100 MG Tablet PO (05:36)
[2021-06-26] MEDS: Clopidogrel Bisulfate 75 MG Tablet PO (05:36)
[2021-06-26 06:18] VITALS: PULSE 59; RESP 17; O2SAT 98
[2021-06-26] MEDS: Budesonide Respules 0.5 MG/2 ML AMPUL.NEB. INHALATION ×2 (06:18→18:10)
[2021-06-26] MEDS: Ipratropium/Albuterol Sulfate 3 ML AMPUL.NEB INHALATION ×3 (06:18→18:10)
--- NOTE | 2021-06-26 07:12 | NURSING ---
Pt AM blood sugar was 153.
[2021-06-26 08:30] VITALS: PULSE 97; RESP 18; O2SAT 95
[2021-06-26] MEDS: Insulin U-500 UNITS/ML PEN 65 UNITS SC ×3 (08:36→17:06)
[2021-06-26] MEDS: Multivitamins,Ther W-Minerals Tablet 1 TABLET PO (08:38)
[2021-06-26] MEDS: Aspirin E.C. 81 MG Tablet PO (08:38)
[2021-06-26] MEDS: HYDROCODONE/APAP 7.5-325/15ML 15 ML UDC PO ×3 (08:42→22:02)
[2021-06-26 12:47] VITALS: PULSE 59; RESP 17
--- NOTE | 2021-06-26 15:43 | NURSING ---
PT CHECKS HER BLOOD SUGAR WITH HER HOME METER. MORNING B.S WAS 158 AND LUNCH WAS 320.
--- NOTE | 2021-06-26 15:48 | CASEMGMT ---
Addendum entered by Dolores Elder 06/27/21 10:51: [facility] can accept Addendum entered by Dolores Elder 06/27/21 09:32: [facility] cannot service pt's home address. Pt does not have alternative preference - agreeable to referral to [facility]. Referral made. Original Note: Social Work Spoke with pt about request to DC home IDT agreeable. Pt requesting elevated leg rests - she has all other DME at home. Denies [facility] resources. Pt requesting [facility]. Referral made for PT/OT/SN. to transport home. Plan: DC home with 06/28, [facility] PT/OT/SN, elevating leg rests MELLY ChanW
[2021-06-26] MEDS: Losartan Potassium 50 MG Tablet PO (15:58)
[2021-06-26] MEDS: Atenolol 25 MG Tablet PO (15:58)
[2021-06-26 16:00] VITALS: BP 148/76; PULSE 66; RESP 18; TEMP 36.6; O2SAT 98
[2021-06-26 18:10] VITALS: PULSE 57; RESP 16
--- NOTE | 2021-06-26 19:22 | PCM.DC.SUM ---
Providers Date of Admission: 06/14/21 Primary Care Physician: Estelita Zacarias MD. 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 Code(s): E11.42 - Type 2 diabetes mellitus with diabetic polyneuropathy Medications at Discharge Home Medications calcium citrate 200 mg (950 mg) tablet 400 mg PO QHS tab 07/21/18 omega-3 fatty acids 500 mg capsule 500 mg PO BID cap 07/21/18 magnesium oxide 400 mg PO QHS 09/29/18 multivitamin with minerals 1 tab PO DAILY 09/29/18 albuterol sulfate 2.5 mg INHALATION Q6H PRN PRN #120 vial 10/01/18 nitroglycerin 0.3 mg sublingual tablet 0.3 mg SUBLINGUAL Q5-15M PRN 10/21/18 aspirin 81 mg tablet,delayed release 81 mg PO DAILY 10/26/18 flash glucose scanning reader #1 ea 07/01/19 flash glucose sensor #4 ea 07/01/19 insulin syringe-needle U-100 0.5 mL 31 gauge x 5/16 #100 ea 09/29/19 montelukast 10 mg tablet 10 mg PO QHS #90 tab 11/19/20 furosemide 40 mg tablet 40 mg PO DAILY tab 01/21/21 insulin regular hum U-500 conc 55 - 160 unit SUBCUT TID ml 01/21/21 amitriptyline 25 mg tablet 25 mg PO QHS #90 tab 02/19/21 fenofibrate 54 mg tablet 108 mg PO DAILY #180 tab 03/01/21 trimethoprim 100 mg tablet 100 mg PO DAILY 03/01/21 clopidogrel 75 mg tablet 75 mg PO DAILY #90 tab 03/04/21 pen needle, diabetic 32 gauge x #300 each 04/12/21 hydrocodone-acetaminophen 1 tab PO Q6H PRN 7 Days #28 tab 06/07/21 budesonide-formoterol [Symbicort] 2 puff INHALATION BID 06/11/21 atenolol 25 mg PO 1500 06/12/21 docusate sodium [DOK] 100 mg PO BID PRN PRN #0 cap 06/14/21 ergocalciferol (vitamin D2) [Vitamin D2] 1,250 mcg PO Q7D@1000 06/14/21 hydrocodone-acetaminophen 1 tab PO Q6H PRN #28 tab 06/14/21 insulin lispro [Humalog KwikPen Insulin] See Protocol SUBCUT ACHS 06/14/21 ipratropium-albuterol 3 ml INHALATION Q4HWA.RT 06/14/21 rosuvastatin 5 mg PO DAILY 06/14/21 sertraline 25 mg PO DAILY 06/14/21 hydrocodone-acetaminophen 15 ml PO Q6H PRN PRN 7 Days #420 ml 06/26/21 losartan 50 mg PO 1500 #0 tab 06/26/21 Hospital Course Operations - (ORIF right trimalleolar ankle fracture.) Procedures None Summary of Care Provided Minutes Spent on Discharge: 35 Hospital Course: 70 year old female with below past medical history suffered right ankle fracture 06/05/2021, underwent ORIF right trimalleolar fracture with Dr. Palmer, admitted to TCU with debility, here for rehabilitation, strengthening, prior to discharge home with . Resident had 2 positive dexamethasone suppression tests, ACTH low, DHEAS low, adrenal imaging negative, follow up for [facility] treatment of [place] syndrome. Discharge home with 06/28/2021, [facility] PT/OT/SN, elevating leg rests. Physical Exam Const alert and oriented x3 General Appearance: cooperative HEENT normocephalic Eyes PERRL and EOMs intact bilaterally Neck supple, no JVD and no carotid bruits Resp normal respiratory effort, normal air movement and clear to auscultation bilaterally Cardio regular rate and regular rhythm GI normal to inspection, nondistended, normoactive bowel sounds, non-tender and non-distended Extremity normal capillary refill Extremity Narrative: Right ankle splint. General Extremity: Negative for edema Skin no rashes or lesions noted General Skin Exam: no breakdown Psych affect normal Appearance: appropriate Weight / BMI Weight Weight: 105.857 kg Body Mass Index (BMI) 45.9 ABG / Lab / Microbiology Data Result Diagrams: 06/22/21 07:55 06/22/21 07:55 D/C Instructions Discharge Diet: No restrictions Discharge Activity: Return to Normal Activity, May Shower and Use Walker May resume sexual activity in: 6-8 weeks Weight Bearing Status: No weight bearing (Right lower extremity.) Call your doctor if you observe: Fever of 101 or Higher, Inability to urinate, Inability to have a bowel movement, Shortness of breath, Dizziness, Fainting spells, Swelling in the ankles, Chest pain and Uncontrolled pain Additional Instructions: Discharge home with 06/28/2021, [facility] PT/OT/SN, elevating leg rests. Please Follow Up With: Dajuan Zacarias Chi, MD When: 1 week. Meaningful Use Info Meaningful Use Diagnoses (Choose all that apply): None applicable Discharge Plan Admission Admit Date/Time: 06/14/21 13:14 Primary Reason for Your Visit: Debility. Attending Provider: Dajuan Zacarias Chi Primary Care Provider: Lucila Asencio Consulting Providers: Leslie Palmer Instructions Additional Instructions / Restrictions: Discharge home with 06/28/2021, [facility] PT/OT/SN, elevating leg rests. Discharge Orders/Prescriptions Prescriptions: New losartan 50 mg Tablet 50 mg PO 1500 Qty: 0 RF: 0 hydrocodone-acetaminophen 7.5-325 mg/15 mL Solution 15 ml PO Q6H PRN PRN (Reason: Pain Score 6-10) 7 Days Qty: 420 RF: 0 Continued calcium citrate 200 mg (950 mg) tablet 400 mg PO QHS RF: 0 nitroglycerin 0.3 mg tablet, sublingual 0.3 mg SUBLINGUAL Q5-15M PRN (Reason: chest pain) RF: 0 aspirin [Adult Aspirin Regimen] 81 mg tablet,delayed release (DR/EC) 81 mg PO DAILY RF: 0 Humulin R U-500 (Conc) Kwikpen 500 unit/mL (3 mL) insulin pen 55 - 160 unit subcut TID RF: 0 furosemide 40 mg tablet 40 mg PO DAILY RF: 0 trimethoprim 100 mg tablet 100 mg PO DAILY RF: 0 multivitamin with minerals 1 EACH tablet 1 tab PO DAILY RF: 0 magnesium oxide 400 MG tablet 400 mg PO QHS RF: 0 budesonide-formoterol [Symbicort] 80-4.5 mcg/actuation HFA aerosol inhaler 2 puff INHALATION BID RF: 0 atenolol 25 mg tablet 25 mg PO 1500 RF: 0 ipratropium-albuterol 0.5 mg-3 mg(2.5 mg base)/3 mL solution for nebulization 3 ml inhalation Q4HWA.RT RF: 0 ergocalciferol (vitamin D2) [Vitamin D2] 1,250 mcg (50,000 unit) capsule 1,250 mcg PO Q7D@1000 RF: 0 sertraline 50 mg tablet 25 mg PO DAILY RF: 0 rosuvastatin 5 mg tablet 5 mg PO DAILY RF: 0 montelukast 10 mg tablet 10 mg PO QHS Qty: 90 RF: 3 clopidogrel 75 mg tablet 75 mg PO DAILY Qty: 90 RF: 3 No Action omega-3 fatty acids 500 mg capsule 500 mg PO BID RF: 0 (DME) FreeStyle Charli 14 Day [place] Misc See Rx Instructions .ROUTE .MEDSUPPLY Qty: 1 RF: 0 (DME) FreeStyle Charli 14 Day Sensor Kit See Rx Instructions .ROUTE .MEDSUPPLY Qty: 4 RF: 7 fenofibrate 54 mg tablet 54 mg tablet 108 mg PO DAILY Qty: 180 RF: 3 albuterol sulfate 2.5 MG/3 ML solution for nebulization 2.5 mg Inhalation Q6H PRN PRN (Reason: Sob &/Or Wheezing) Qty: 120 RF: 0 hydrocodone-acetaminophen 7.5-325 mg tablet 1 tab PO Q6H PRN (Reason: pain) 7 Days Qty: 28 RF: 0 docusate sodium [DOK] 100 mg Capsule 100 mg PO BID PRN PRN (Reason: Constipation) Qty: 0 RF: 0 Hydrocodone-Acetaminophen 1 tab PO Q6H PRN (Reason: Pain (Scale Score 7-10)) Qty: 28 RF: 0 insulin lispro [Humalog KwikPen Insulin] 100 unit/mL insulin pen See Protocol unit subcut ACHS RF: 0 (DME) insulin syringe-needle U-100 [BD Insulin Syringe Ultra-Fine] 0.5 mL 31 gauge x 5/16 syringe See Rx Instructions .ROUTE .MEDSUPPLY Qty: 100 RF: 8 amitriptyline 25 mg tablet 25 mg PO QHS Qty: 90 RF: 3 (DME) pen needle, diabetic [BD Ultra-Fine July Pen Needle] 32 gauge x 5/32 needle See Rx Instructions .ROUTE .MEDSUPPLY Qty: 300 RF: 3 Referrals / Follow Up: Dajuan Zacarias Chi, MD [COURTESY STAFF PHYSICIAN] - Within 1 Week Disposition Disposition (needs filled in before D/C Order can be placed): Home Health Service
[2021-06-26] MEDS: Calcium (Elemental) 500 MG Tablet PO (20:20)
[2021-06-26] MEDS: Montelukast 10 MG Tablet PO (20:20)
--- NOTE | 2021-06-26 22:21 | NURSING ---
Patient checking BS with home glucometer. HS BS 317. Will continue to monitor.
[2021-06-27] MEDS: HYDROCODONE/APAP 7.5-325/15ML 15 ML UDC PO ×3 (04:30→18:17)
[2021-06-27] MEDS: Trimethoprim 100 MG Tablet PO (04:31)
[2021-06-27] MEDS: Magnesium Chloride 64 MG Delay Rel.Tablet 128 MG PO (04:31)
[2021-06-27] MEDS: Atorvastatin Calcium 10 MG Tablet PO (04:32)
[2021-06-27] MEDS: Sertraline 50 MG Tablet PO (04:32)
[2021-06-27] MEDS: Furosemide 40 MG Tablet PO (04:32)
[2021-06-27] MEDS: Clopidogrel Bisulfate 75 MG Tablet PO (04:32)
[2021-06-27] MEDS: Nystatin Powder 15gm Bottle 1 APPLIC TOPICAL ×2 (04:34→16:59)
[2021-06-27 06:48] VITALS: PULSE 57; RESP 18; O2SAT 99
[2021-06-27] MEDS: Ipratropium/Albuterol Sulfate 3 ML AMPUL.NEB INHALATION ×3 (06:48→19:49)
[2021-06-27] MEDS: Budesonide Respules 0.5 MG/2 ML AMPUL.NEB. INHALATION ×2 (06:48→19:49)
--- NOTE | 2021-06-27 07:38 | NURSING ---
pt Blood sugar william lee
--- NOTE | 2021-06-27 07:38 | NURSING ---
Pt blood sugar this morning was 201, pt checked blood sugar with her continuing monitor device.
[2021-06-27] MEDS: Insulin U-500 UNITS/ML PEN 65 UNITS SC ×3 (07:40→16:58)
[2021-06-27] MEDS: Aspirin E.C. 81 MG Tablet PO (07:40)
[2021-06-27] MEDS: Multivitamins,Ther W-Minerals Tablet 1 TABLET PO (07:40)
--- NOTE | 2021-06-27 09:30 | CASEMGMT ---
Social Work Completed advanced directives with patient. Pt named HCPOA Win as primary and granddaughter, Tonie as secondary. Copies placed in chart. Dolores Elder, PERIANESTHESIA MANAGER [employer] QA LAB ANALYST
[2021-06-27 13:04] VITALS: BP 109/74; PULSE 60; RESP 20; TEMP 36.5; O2SAT 97
--- NOTE | 2021-06-27 13:04 | MDS.RN ---
Information for the mds was obtained from review of the clinical record, interview of resident, staff, and direct observation of resident's care.
[2021-06-27 13:20] VITALS: PULSE 64; RESP 18
[2021-06-27] MEDS: Losartan Potassium 50 MG Tablet PO (14:21)
[2021-06-27] MEDS: Atenolol 25 MG Tablet PO (14:21)
[2021-06-27 19:49] VITALS: PULSE 56; RESP 18
[2021-06-27] MEDS: Calcium (Elemental) 500 MG Tablet PO (20:41)
[2021-06-27] MEDS: Montelukast 10 MG Tablet PO (20:41)
[2021-06-27 21:42] VITALS: PULSE 59; RESP 18; O2SAT 96
--- NOTE | 2021-06-27 22:20 | NURSING ---
Patient checks blood sugar with personal glucometer. HS blood sugar 201. Patient given snack prior to bed. Will continue to monitor.
[2021-06-28] MEDS: HYDROCODONE/APAP 7.5-325/15ML 15 ML UDC PO (00:31)
[2021-06-28] MEDS: Magnesium Chloride 64 MG Delay Rel.Tablet 128 MG PO (04:32)
[2021-06-28] MEDS: Trimethoprim 100 MG Tablet PO (04:32)
[2021-06-28] MEDS: Clopidogrel Bisulfate 75 MG Tablet PO (04:32)
[2021-06-28] MEDS: Atorvastatin Calcium 10 MG Tablet PO (04:32)
[2021-06-28] MEDS: Nystatin Powder 15gm Bottle 1 APPLIC TOPICAL (04:34)
[2021-06-28] MEDS: Sertraline 50 MG Tablet PO (04:37)
[2021-06-28 05:02] VITALS: PULSE 53; RESP 18; O2SAT 98
--- NOTE | 2021-06-28 06:36 | NURSING ---
Medications reviewed with patient prior to discharge today. Discussed use of narcotic for pain and to attempt to decrease use through the day. Also discussed the need to schedule follow up appts for PCP, and Dr. Palmer. Patient stated that she will be switching to Dr. Zacarias for her PCP and verbalized understanding of medications. Patient discharging home with home health. 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
--- NOTE | 2021-06-28 06:58 | PCM.PROGNOTE ---
Subjective Subjective This 70-year-old female was seen status post 2 weeks right open reduction internal fixation of trimalleolus ankle fracture. She denies fever, chill, nausea, vomiting, calf pain, shortness of breath or chest pain. Her pain is reduced compared to her last visit. She has been compliant in the transitional care unit with maintaining a nonweightbearing status. She is going home today. Objective Data Objective Data Vital Signs: Vital Signs Temp Pulse Resp BP Pulse Ox 97.7 F L 53 L 18 109/74 98 06/27/21 13:04 06/28/21 05:02 06/28/21 05:02 06/27/21 13:04 06/28/21 05:02 Oxygen Flow Rate (L/min) 3 Oxygen Delivery Method Nasal Cannula Weight: 105.857 kg Body Mass Index (BMI) 45.9 Intake & Output: Intake and Output for Last 24 Hours 06/26/21 06/27/21 06/28/21 23:59 23:59 23:59 Intake Total 960 / 960 1320 / 1320 Balance 960 / 960 1320 / 1320 Lab / Micro Data Result Diagrams: 06/22/21 07:55 06/22/21 07:55 Physical Exam Const alert and oriented x3 General Appearance: cooperative and comfortable Assessment & Plan Assessment/Plan (1) Debility: (2) Closed right trimalleolar fracture: (3) Polyneuropathy due to type 2 diabetes mellitus: PLAN: This patient was seen 2 weeks postoperative. She is overall stable and remains afebrile. Her anticipated post operative course and management were reviewed today with the patient. Her vital signs are stable. Her dressing and splint are clean, dry, and intact. Her dressing was changed with gauze and her well-padded posterior mold splint was reapplied. To continue to offload this site. To maintain a strict nonweightbearing status. She has been working with PT and OT while in the transitional care unit. Her pain reduction is noted; she has oral pain medication ordered.To continue to ice and elevate for pain control also. Edema reduction is noted with Lasix and Gabriel wrap application. To continue to use incentive spirometer. To optimize healing with nutritional supplementation. Vitamin D prescription started due to deficient levels to optimize bone healing. She is multiple comorbidities and is at risk for healing complications. Medical management per Dr. Zacarias is appreciated. Please do not hesitate to call if you have any questions. I will continue to follow her while in the transitional care unit on a weekly basis. After d/c, [facility]. Leslie Palmer DPM, [facility] [phone]
[2021-06-28 07:16] VITALS: O2SAT 98
[2021-06-28] MEDS: Multivitamins,Ther W-Minerals Tablet 1 TABLET PO (08:20)
[2021-06-28] MEDS: Aspirin E.C. 81 MG Tablet PO (08:20)
[2021-06-28] MEDS: Insulin U-500 UNITS/ML PEN 65 UNITS SC (08:57)
[2021-06-28] MEDS: Ergocalciferol 1.25 MG (50, 000 UNIT) Capsule PO (08:59)
[2021-06-28 10:40] VITALS: BP 119/58; PULSE 66; RESP 20; TEMP 35.9; O2SAT 99
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
== END 2021-06-28 11:04 | disposition home health service (06) | DRG 559 ==
PROVIDERS: Family Medicine; Admitting Provider Family Medicine Geriatric Medicine; PCP Internal Medicine; Visit Provider Family Medicine Geriatric Medicine
DX: S82.851D Displaced trimalleolar fracture of right lower leg, subsequent encounter for closed fracture with routine healing (principal); I50.33 Acute on chronic diastolic (congestive) heart failure; Z68.42 Body mass index [BMI] 45.0-49.9, adult; I25.10 Atherosclerotic heart disease of native coronary artery without angina pectoris; I11.0 Hypertensive heart disease with heart failure; M19.90 Unspecified osteoarthritis, unspecified site; J44.9 Chronic obstructive pulmonary disease, unspecified; F32.9 Major depressive disorder, single episode, unspecified; F41.9 Anxiety disorder, unspecified; E78.5 Hyperlipidemia, unspecified; E66.01 Morbid (severe) obesity due to excess calories; I27.21 Secondary pulmonary arterial hypertension; W19.XXXD Unspecified fall, subsequent encounter; E11.42 Type 2 diabetes mellitus with diabetic polyneuropathy; Z23 Encounter for immunization; K21.9 Gastro-esophageal reflux disease without esophagitis; G47.33 Obstructive sleep apnea (adult) (pediatric); B35.4 Tinea corporis; E55.9 Vitamin D deficiency, unspecified; Z87.891 Personal history of nicotine dependence; Z79.82 Long term (current) use of aspirin; Z79.4 Long term (current) use of insulin; Z79.899 Other long term (current) drug therapy; Z79.51 Long term (current) use of inhaled steroids; Z99.81 Dependence on supplemental oxygen; Z87.440 Personal history of urinary (tract) infections
CPT/HCPCS: 36415; 73610; 80048; 82024; 82533; 82627; 82962; 84484; 85025; 90732; 94640; 94667; 94668; 97110; 97162; 97166; 97530; 97535; 97802; G0009; 82626; J1940

== ENCOUNTER → 2021-06-14 20:17 | Outpatient (CLI) | payer MEDICARE, OTHER, SELFPAY ==
[2018-11-03 13:03] VITALS: BMI 44.2
--- NOTE | 2021-06-14 21:20 | CT_ITS ---
HISTORY: Suspect right hilar mass, lymphadenopathy. EXAMINATION: CT Chest W/O Contrast Injection TECHNIQUE: Helically acquired images were obtained of the chest. A radiation dose optimization technique was used for this scan. IV Contrast dosage and agent: None. COMPARISON: Chest x-ray same date FINDINGS: LUNGS, PLEURA AND LARGE AIRWAYS: Mild septal prominence without airspace opacities or consolidations. No pleural effusions or pneumothorax. 2 mm subpleural nodule right upper lobe laterally, 3 mm subpleural nodule upper lingula anterolaterally. THYROID: No thyroid lesions. HEART AND PERICARDIUM: Borderline cardiomegaly. No pericardial effusion. VESSELS: Thoracic aorta is not dilated. MEDIASTINUM AND AYANA: Mediastinal adenopathy. 2.2 cm left axillary adenopathy. Esophagus is unremarkable. No hiatal hernia. UPPER ABDOMEN: No acute pathology. BONES: No acute or aggressive abnormality. CT/Chest without Contrast IMPRESSION: Borderline cardiomegaly. Mild, diffuse septal prominence of unknown chronicity. Findings may represent interstitial lung disease but interstitial pulmonary edema not excluded. No acute consolidative process. 2 and 3 mm indeterminate pulmonary nodules. No specific follow-up unless patient at high risk for malignancy where a one-year follow-up CT is recommended. Mediastinal and left axillary adenopathy. Individualized dose optimization techniques were used for this CT. at 2229 Reported and signed by: Quique Nice MD Electronically Signed: Quique Nice MD at 22:27 EDT Tel , Service support ,
== END ==
PROVIDERS: PCP Internal Medicine; Referring Provider Family Medicine Geriatric Medicine; Visit Provider Family Medicine Geriatric Medicine
DX: R59.1 Generalized enlarged lymph nodes (principal)
CPT/HCPCS: 71250

== ENCOUNTER 2021-06-14 23:21 | Emergency (ER) | payer MEDICARE, OTHER, SELFPAY ==
[2018-11-03 13:03] VITALS: BMI 44.2
[2021-06-14 23:23] VITALS: BP 160/55; PULSE 82; RESP 30; TEMP 37; O2SAT 96; BMI 53.7
[2021-06-14 23:41] VITALS: BP 146/68; PULSE 76; RESP 28; O2SAT 97
--- NOTE | 2021-06-14 23:51 | EDS_ITS ---
HPI History of Present Illness Chief Complaint: Alt LOC Informant: patient Onset/Context/Timing Onset: Hours (2) Context: gradual Timing: Continuous Quality: Positive for - (sob) Current Severity: Mild Maximum Severity: Severe Worsened by: Lying flat Relieved by: - (Bipap, Lasix) Associated Symptoms Negative for cough Chest Pain: Positive for None Narrative Narrative: Patient is in TCU, was seen earlier by hospitalist during rapid response for dyspnea and hypoxemia, apparently the patient had pulled her CPAP machine off although the patient states she wears CPAP/BiPAP every night and the nurses took it off to take her to CT for her chest scan regarding a possible perihilar mass. Regardless, she was restless and CT according to staff who sent her here, she was short of breath. Rapid response team administered IV Lasix 40 mg, the patient states that now she is breathing fine almost back to normal after she urinated a lot. She does have history of congestive heart failure. According to staff, Dr. Zacarias wanted her sent to the ER for further evaluation. The patient states she basically almost feels back to normal she has had no chest discomfort. [facility] Medical History Anxiety Anxiety and depression Arthritis Asthma Atherosclerosis of coronary artery of [place] heart without angina pectoris Atherosclerotic heart disease of [place] coronary artery without angina pectoris Back problem BiPAP (biphasic positive airway pressure) dependence Cancer Cardiac murmur Cardiology follow-up encounter Cataracts, bilateral Chronic headaches COPD (chronic obstructive pulmonary disease) CVA (cerebral vascular accident) Depression Diabetes Diastolic CHF Essential (primary) hypertension Excessive bleeding Exertional shortness of breath Former smoker Gallstones Gastric reflux GI problem High cholesterol High triglycerides History of echocardiogram History of edema History of stress test Hives Hyperlipidemia Hypertension IBS (irritable bowel syndrome) Insulin dependent diabetes mellitus Migraine headache Morbid obesity with BMI of 40.0-44.9, adult Neuropathy Nicotine dependence On home oxygen therapy CIARRA (obstructive sleep apnea) Pancreatitis Pulmonary hypertension Routine health maintenance Secondary pulmonary arterial hypertension Skin tags, multiple acquired Sleep apnea Uncontrolled type 2 diabetes mellitus Uses wheelchair UTI (urinary tract infection) Vision problem Wears dentures Wears glasses Home Medications calcium citrate 200 mg (950 mg) tablet 400 mg PO QHS tab 07/21/18 [History Last Taken 11/02/18 21:00] omega-3 fatty acids 500 mg capsule 500 mg PO BID cap 07/21/18 [History Last Taken 11/02/18 08:00] magnesium oxide 400 mg PO QHS 09/29/18 [History Last Taken 11/02/18 21:00] multivitamin with minerals 1 tab PO DAILY 09/29/18 [History Last Taken 11/02/18 08:00] albuterol sulfate 2.5 mg INHALATION Q6H PRN PRN #120 vial 10/01/18 [Rx Last Taken 09/21/18 08:00] nitroglycerin 0.3 mg sublingual tablet 0.3 mg SUBLINGUAL Q5-15M PRN 10/21/18 [History Last Taken Unknown] aspirin 81 mg tablet,delayed release 81 mg PO DAILY 10/26/18 [History Last Taken 06/11/21] flash glucose scanning reader #1 ea 07/01/19 [Rx Last Taken Unknown] flash glucose sensor #4 ea 07/01/19 [Rx Last Taken Unknown] insulin syringe-needle U-100 0.5 mL 31 gauge x 5/16 #100 ea 09/29/19 [Rx Last Taken Unknown] montelukast 10 mg tablet 10 mg PO QHS #90 tab 11/19/20 [Rx Last Taken Unknown] furosemide 40 mg tablet 40 mg PO DAILY tab 01/21/21 [History Last Taken Unknown] insulin regular hum U-500 conc 55 - 160 unit SUBCUT TID ml 01/21/21 [History Last Taken Unknown] amitriptyline 25 mg tablet 25 mg PO QHS #90 tab 02/19/21 [Rx Last Taken 06/11/21] fenofibrate 54 mg tablet 108 mg PO DAILY #180 tab 03/01/21 [Rx Last Taken Unknown] trimethoprim 100 mg tablet 100 mg PO DAILY 03/01/21 [History Last Taken Unknown] clopidogrel 75 mg tablet 75 mg PO DAILY #90 tab 03/04/21 [Rx Last Taken 06/08/21] pen needle, diabetic 32 gauge x 5/32 #300 each 04/12/21 [Rx Last Taken Unknown] hydrocodone-acetaminophen 1 tab PO Q6H PRN 7 Days #28 tab 06/07/21 [Rx Last Taken Unknown] budesonide-formoterol [Symbicort] 2 puff INHALATION BID 06/11/21 [History Last Taken Unknown] atenolol 25 mg PO 1500 06/12/21 [History Last Taken 06/12/21 15:00] docusate sodium [DOK] 100 mg PO BID PRN PRN #0 cap 06/14/21 [Rx Last Taken Unknown] ergocalciferol (vitamin D2) [Vitamin D2] 1,250 mcg PO Q7D@1000 06/14/21 [History Last Taken 06/14/21] hydrocodone-acetaminophen 1 tab PO Q6H PRN #28 tab 06/14/21 [Rx Last Taken Unknown] insulin lispro [Humalog KwikPen Insulin] See Protocol SUBCUT ACHS 06/14/21 [History Last Taken Unknown] ipratropium-albuterol 3 ml INHALATION Q4HWA.RT 06/14/21 [History Last Taken Unknown] rosuvastatin 5 mg PO DAILY 06/14/21 [History Last Taken Unknown] sertraline 25 mg PO DAILY 06/14/21 [History Last Taken Unknown] Allergy/AdvReac Type Severity Reaction Status Date / Time ciprofloxacin Allergy Severe Hives Verified 06/14/21 23:23 clindamycin Allergy Severe Hives Verified 06/14/21 23:23 codeine Allergy Severe Itching Verified 06/14/21 23:23 formoterol [From Dulera] Allergy Severe Unknown Verified 06/14/21 23:23 mometasone furoate Allergy Severe Unknown Verified 06/14/21 23:23 [From Dulera] Penicillins Allergy Severe Hives Verified 06/14/21 23:23 Sulfa (Sulfonamide Allergy Severe Hives Verified 06/14/21 23:23 Antibiotics) fluticasone Allergy Unknown Unknown Verified 06/14/21 23:23 [From Advair Diskus] gemfibrozil [From Lopid] Allergy Unknown Unknown Verified 06/14/21 23:23 metformin Allergy Unknown Upset Verified 06/14/21 23:23 Stomach oxycodone [From Percocet] Allergy Unknown Rash Verified 06/14/21 23:23 salmeterol Allergy Unknown Unknown Verified 06/14/21 23:23 [From Advair Diskus] Family History Mother Asthma Arthritis Hypertension Grandmother Cancer Brother Diabetes Heart disease Hypertension Father Heart disease Hypertension Surgical History H/O: H/O: hysterectomy History of cardiac catheterization History of coronary artery stent placement History of open reduction and internal fixation (ORIF) procedure History of right cataract extraction Hx of cataract surgery Hx of cholecystectomy Stented coronary artery (11/03/18) Social History household members: spouse Smoking Status: Former smoker Tobacco: How many years used: 50 how long ago did patient quit smokin, 1ppd second hand exposure: Yes alcohol intake: never substance use type: does not use ROS ROS ED Constitutional Constitutional ED: Denies chills or fever(s) Eyes Eyes: Denies change in vision or diplopia ENT ENT ED: Denies rhinorrhea or sore throat Cardiovascular Cardiovascular: Denies chest pain or palpitations Respiratory/Chest Respiratory/Chest: Reports dyspnea; Denies cough Gastrointestinal Gastrointestinal: Denies abdominal pain, diarrhea, nausea or vomiting Genitourinary Genitourinary ED: Denies dysuria or hematuria Musculoskeletal Musculoskeletal: Reports as per HPI and extremity pain; Denies back pain or neck pain Integumentary Denies abscess or rash Neurologic Neurologic: Denies headache(s), paresthesias or weakness Psychiatric Psychiatric: Denies anxiety or suicidal thoughts EXAM Physical Exam Const Vital Signs: 06/14/21 23:23 06/14/21 23:41 06/14/21 23:44 Temperature 98.6 F Temperature Source Oral Pulse Rate 82 76 Respiratory Rate 30 H 28 H Respiratory Effort Short of Breath Respiratory Pattern Blood Pressure 160/55 H 146/68 H Blood Pressure Mean 90 94 Pulse Ox 96 97 Oxygen Delivery Method Nasal Cannula Nasal Cannula Oxygen Flow Rate (L/min) 4 4 06/15/21 00:04 Temperature Temperature Source Pulse Rate 91 Respiratory Rate 24 H Respiratory Effort Respiratory Pattern Tachypnea Blood Pressure Blood Pressure Mean Pulse Ox Oxygen Delivery Method Oxygen Flow Rate (L/min) Positive well nourished, well developed and obese General Appearance ED: well developed and NAD Nutritional Appearance: obese HEENT Reports moist mucous membranes normocephalic and atraumatic Eyes PERRL and EOMs intact bilaterally Neck full ROM and supple Resp Resp Narrative: Tachypnea, no respiratory distress. Diffuse mild expiratory wheezing, diminished at the bases. Breath sounds symmetric. Trachea midline. No retractions. Cardio regular rate, regular rhythm and no murmurs Rate: Negative for tachycardic GI non-tender and non-distended Auscultation: normoactive bowel sounds Palpation: soft Back/Spine no CVA tenderness General Back: other FROM Extremity normal to inspection Extremity Narrative: Right lower extremity in short leg posterior splint, neurovascularly intact distally at toes. General Extremety ED: Negative for edema, pulses abnormal or tenderness General Extremity: Negative for edema or pulses abnormal Neuro oriented x3, CN's II-XII intact bilaterally and no sensory deficits noted Sensorium / Orientation: awake and alert Motor Exam: strength 5/5 throughout Skin no rashes or lesions noted and no wounds MDM MDM MDM Narrative Medical decision making narrative: Patient was given an albuterol aerosol and she feels better. She feels like her breathing is back to normal. She is wheezing less. She is on 4 L nasal cannula satting at 96%, her baseline. She states she wants to go back upstairs and go to sleep. She is asking for something for pain with regards to her ankle fracture, she has [place] ordered so we will give her 1. On TCU, she already has a new order for daily Lasix which will be given in the morning here shortly. I did review parts of her chart, she does have a history of congestive heart failure but her ejection fraction is 60% and she has some diastolic dysfunction. I think she is stable to go back to TCU at this time. Discharge Plan Triage Chief Complaint: Alt LOC ED Provider: Bryant Wisdom Dx/Rx/DC Orders Clinical Impression: Acute exacerbation of CHF (congestive heart failure), CIARRA (obstructive sleep apnea), Stage 3 severe COPD by GOLD classification Prescriptions: No Action calcium citrate 200 mg (950 mg) tablet 400 mg PO QHS RF: 0 omega-3 fatty acids 500 mg capsule 500 mg PO BID RF: 0 nitroglycerin 0.3 mg tablet, sublingual 0.3 mg SUBLINGUAL Q5-15M PRN (Reason: chest pain) RF: 0 aspirin [Adult Aspirin Regimen] 81 mg tablet,delayed release (DR/EC) 81 mg PO DAILY RF: 0 (DME) FreeStyle Charli 14 Day [employer] Misc See Rx Instructions .ROUTE .MEDSUPPLY Qty: 1 RF: 0 (DME) FreeStyle Charli 14 Day Sensor Kit See Rx Instructions .ROUTE .MEDSUPPLY Qty: 4 RF: 7 Humulin R U-500 (Conc) Kwikpen 500 unit/mL (3 mL) insulin pen 55 - 160 unit subcut TID RF: 0 furosemide 40 mg tablet 40 mg PO DAILY RF: 0 trimethoprim 100 mg tablet 100 mg PO DAILY RF: 0 fenofibrate 54 mg tablet 54 mg tablet 108 mg PO DAILY Qty: 180 RF: 3 multivitamin with minerals 1 EACH tablet 1 tab PO DAILY RF: 0 magnesium oxide 400 MG tablet 400 mg PO QHS RF: 0 albuterol sulfate 2.5 MG/3 ML solution for nebulization 2.5 mg Inhalation Q6H PRN PRN (Reason: Sob &/Or Wheezing) Qty: 120 RF: 0 hydrocodone-acetaminophen 7.5-325 mg tablet 1 tab PO Q6H PRN (Reason: pain) 7 Days Qty: 28 RF: 0 budesonide-formoterol [Symbicort] 80-4.5 mcg/actuation HFA aerosol inhaler 2 puff INHALATION BID RF: 0 atenolol 25 mg tablet 25 mg PO 1500 RF: 0 docusate sodium [DOK] 100 mg Capsule 100 mg PO BID PRN PRN (Reason: Constipation) Qty: 0 RF: 0 Hydrocodone-Acetaminophen 1 tab PO Q6H PRN (Reason: Pain (Scale Score 7-10)) Qty: 28 RF: 0 ipratropium-albuterol 0.5 mg-3 mg(2.5 mg base)/3 mL solution for nebulization 3 ml inhalation Q4HWA.RT RF: 0 ergocalciferol (vitamin D2) [Vitamin D2] 1,250 mcg (50,000 unit) capsule 1,250 mcg PO Q7D@1000 RF: 0 sertraline 50 mg tablet 25 mg PO DAILY RF: 0 insulin lispro [Humalog KwikPen Insulin] 100 unit/mL insulin pen See Protocol unit subcut ACHS RF: 0 rosuvastatin 5 mg tablet 5 mg PO DAILY RF: 0 (DME) insulin syringe-needle U-100 [BD Insulin Syringe Ultra-Fine] 0.5 mL 31 gauge x 5/16 syringe See Rx Instructions .ROUTE .MEDSUPPLY Qty: 100 RF: 8 montelukast 10 mg tablet 10 mg PO QHS Qty: 90 RF: 3 amitriptyline 25 mg tablet 25 mg PO QHS Qty: 90 RF: 3 clopidogrel 75 mg tablet 75 mg PO DAILY Qty: 90 RF: 3 (DME) pen needle, diabetic [BD Ultra-Fine July Pen Needle] 32 gauge x 5/32 needle See Rx Instructions .ROUTE .MEDSUPPLY Qty: 300 RF: 3 Primary Care Provider: Lucila Asencio Referrals: Lucila Asencio MD [Primary Care Provider] - Disposition Disposition: Inpatient Rehab Unit/Facility Discharge Location: [facility] Transitional Care Unit
[2021-06-15 00:04] VITALS: PULSE 91; RESP 24
[2021-06-15] MEDS: Albuterol 2.5 MG/3 ML VIAL.NEB. INHALATION (00:04)
== END 2021-06-15 01:13 ==
PROVIDERS: Emergency Provider Emergency Medicine; PCP Internal Medicine
DX: I11.0 Hypertensive heart disease with heart failure (principal); I50.30 Unspecified diastolic (congestive) heart failure; G47.33 Obstructive sleep apnea (adult) (pediatric); E11.36 Type 2 diabetes mellitus with diabetic cataract; E11.40 Type 2 diabetes mellitus with diabetic neuropathy, unspecified; E11.65 Type 2 diabetes mellitus with hyperglycemia; E66.01 Morbid (severe) obesity due to excess calories; E78.00 Pure hypercholesterolemia, unspecified; E78.1 Pure hyperglyceridemia; E78.5 Hyperlipidemia, unspecified; F32.9 Major depressive disorder, single episode, unspecified; F41.9 Anxiety disorder, unspecified; I25.10 Atherosclerotic heart disease of native coronary artery without angina pectoris; I27.21 Secondary pulmonary arterial hypertension; K21.9 Gastro-esophageal reflux disease without esophagitis; K58.9 Irritable bowel syndrome, unspecified; Z68.41 Body mass index [BMI] 40.0-44.9, adult; Z79.4 Long term (current) use of insulin; Z79.51 Long term (current) use of inhaled steroids; Z79.82 Long term (current) use of aspirin; Z87.891 Personal history of nicotine dependence; J44.9 Chronic obstructive pulmonary disease, unspecified
CPT/HCPCS: 94640; 99283; P9612

== ENCOUNTER → 2021-06-21 10:28 | Outpatient (CLI) | payer MEDICARE, OTHER, SELFPAY ==
[2018-11-03 13:03] VITALS: BMI 44.2
--- NOTE | 2021-06-21 10:35 | CT_ITS ---
STUDY: CT CHEST WITH CONTRAST REASON FOR EXAM: Female, 70 years old. SUSPECT RIGHT HILAR MASS RADIATION DOSAGE (If Supplied By Facility): CTDIvol = ( 17.86 ) mGy, DLP = ( 833.31 ) mGycm TECHNIQUE: Transaxial imaging was performed following intravenous administration of IV 100mL Isovue-370. Multiplanar coronal and sagittal images were reformatted. Individualized dose optimization techniques were used for this CT. COMPARISON: Comparison is made with prior CT scan of the thorax dated 06/14/2021. FINDINGS: Stable small bilateral axillary lymph nodes. Stable mild degree of increased markings at the lung bases suggestive of scarring. There is no demonstrated pleural abnormality. There are calcifications of the coronary arteries. Mildly enlarged mediastinal lymph nodes. Normal hilar regions. Normal enhanced pulmonary arteries. There is atherosclerotic calcification of the aortic arch with tortuosity and elongation of the aortic arch and descending thoracic aorta. Normal osseous structures. There is no demonstrated abnormality of the visualized upper abdomen. CT/Chest WITH Contrast IMPRESSION: No hilar mass is seen. There has been no change since prior study. Electronically Signed: Everardo Rivas MD at 11:34 EDT , Service support ,
--- NOTE | 2021-06-21 14:48 | CT_ITS ---
STUDY: CT ABDOMEN WITHOUT CONTRAST REASON FOR EXAM: Female, 70 years old. Abnormal adrenal blood chemistry result. RADIATION DOSAGE (If Supplied By Facility): CTDIvol = ( 44.99 ) mGy, DLP = ( 812.98 ) mGycm TECHNIQUE: Transaxial images were obtained without intravenous contrast, and oral contrast. Sagittal and coronal images were reconstructed. Individualized dose optimization techniques were used for this CT. COMPARISON: None. FINDINGS: The visualized lung bases are unremarkable. The visualized portions of the heart are within normal limits. Normal liver. The patient is status post cholecystectomy. Normal spleen. Normal pancreas. Normal bilateral adrenal glands. Contrast is seen within the renal collecting system due to prior enhanced CT scan. Normal visualized stomach. Normal small intestine. Normal colon. The appendix is visualized and appears normal. There is diffuse atherosclerotic calcification of the abdominal aorta, without a demonstrated aneurysm. Normal inferior vena cava. Normal retroperitoneum. Normal abdominal wall. There are degenerative changes of the visualized lumbar spine. CT/Abdomen without IV Contrast IMPRESSION: The adrenal glands are unremarkable. Electronically Signed: Everardo Rivas MD at 15:19 EDT , Service support ,
== END ==
PROVIDERS: PCP Internal Medicine; Referring Provider Family Medicine Geriatric Medicine; Visit Provider Family Medicine Geriatric Medicine
DX: R79.9 Abnormal finding of blood chemistry, unspecified (principal); D35.00 Benign neoplasm of unspecified adrenal gland
CPT/HCPCS: 71260; 74150; Q9967; A4216

== ENCOUNTER → 2021-07-18 11:46 | Outpatient (CLI) | payer MEDICARE, OTHER, SELFPAY ==
[2018-11-03 13:03] VITALS: BMI 44.2
--- NOTE | 2021-07-18 11:49 | RAD_ITS ---
STUDY: X-RAY - RIGHT ANKLE REASON FOR EXAM: Female, 70 years old. ANKLE PAIN TECHNIQUE: 3 view(s) of the ankle. COMPARISON: 06/17/21. FINDINGS: Surgical fixation at the medial malleolus. Hardware intact/well aligned. Surgical fixation at the distal fibula. Hardware intact/well aligned. Partially visualized first metatarsal surgical fixation. Trimalleolar fracture fragments in near-anatomic alignment. Ankle mortise in near anatomic alignment. Plantar spur. Enthesophyte. Tibiotalar arthrosis. Soft tissue swelling at the ankle. RAD/Ankle min 3 Views IMPRESSION: Trimalleolar fracture with uncomplicated ORIF Fracture fragments in near-anatomic alignment Ankle mortise in near anatomic alignment Soft tissue swelling Electronically Signed: Vega Krishnan DO at 9:35 EDT Tel , Service support ,
== END ==
PROVIDERS: PCP Internal Medicine; Referring Provider Podiatrist; Visit Provider Podiatrist
DX: S82.841D Displaced bimalleolar fracture of right lower leg, subsequent encounter for closed fracture with routine healing (principal); M25.571 Pain in right ankle and joints of right foot
CPT/HCPCS: 73610

== ENCOUNTER 2021-07-25 13:51 | Emergency (ER) | payer MEDICARE, OTHER, SELFPAY ==
[2018-11-03 13:03] VITALS: BMI 44.2
[2021-07-25 13:52] VITALS: BP 165/37; PULSE 66; RESP 18; TEMP 36.6; O2SAT 98; BMI 50.1
--- NOTE | 2021-07-25 14:35 | VDLE_ITS ---
Reason For Study: Swelling RIGHT GSV is normal. CFV is compressible, spontaneous, phasic, competent and demonstrates normal augmentation. FV is compressible, spontaneous, phasic, competent and demonstrates normal augmentation. POP V is compressible, spontaneous, phasic, competent and demonstrates normal augmentation. T/P Trunk is compressible. PTV is compressible. RT PerV is compressible. Procedure This is a venous duplex using B-mode, color flow and spectral Doppler. Exam performed portable in ED. A preliminary report was called and/or faxed to [facility]. VL/Venous Duplex US, Unilateral Interpretation Summary There is no evidence of right lower extremity deep vein thrombosis. Right great saphenous vein appears patent and compressible segmentally. Ordering Physician: Jonathan Ivan Referring Physician: Lucila Asencio Performed By: Maria M Manzano RVT
--- NOTE | 2021-07-25 14:35 | RAD_ITS ---
STUDY: X-RAY - RIGHT ANKLE REASON FOR EXAM: Female, 70 years old. Pain, post-op TECHNIQUE: 3 view(s) of the ankle. COMPARISON: Comparison is made with prior examination of 07/10/2021. FINDINGS: The patient is status post open reduction internal fixation of the distal fibular fracture as well as screw fixation of the medial malleolar fracture. There has been no change. Normal visualized talus and calcaneus. The visualized subtalar, talonavicular, calcaneocuboid and tarsal articulations are normal. Persistent soft tissue swelling. RAD/Ankle min 3 Views IMPRESSION: Stable open reduction internal fixation of the distal fibula and medial malleolus. Persistent soft tissue swelling. Electronically Signed: Everardo Rivas MD at 15:04 EDT , Service support ,
--- NOTE | 2021-07-25 14:36 | ED.VIS.LOWEX ---
HPI History of Present Illness Chief Complaint: Lower Extremity Injury Informant: patient Narrative Narrative: Patient presents with swelling around her right ankle area. This has been going on for about 5 or so days. She has no fevers chills sweats. Despite a history of CHF she has no dyspnea whatsoever. She is on Lasix. Only blood thinners or aspirin and Plavix. She has never had a DVT or PE. She states other than her right ankle she feels perfectly fine. She has not had fevers. Patient had a fracture in mid end of May. On approximately the she had open reduction internal fixation of left fibula. She has had some swelling off and on. It had overall been getting better. She feels like the swelling starting to come back slightly just in that area again now. Pain is also slightly increasing. She denies any injury. She has been taking care of it. She tries to elevate. She doesn't think there is been any major change in her care of the foot and ankle. Patient was frustrated being here. She was under the the thought that she was getting an outpatient ultrasound referred by her physician. She did not know she was supposed to check into the emergency department. She states she feels fine and really just wants an ultrasound. After talking with her I did convince her to get a x-ray also. [facility] Medical History Anxiety Anxiety and depression Arthritis Asthma Atherosclerosis of coronary artery of [place] heart without angina pectoris Atherosclerotic heart disease of [place] coronary artery without angina pectoris Back problem BiPAP (biphasic positive airway pressure) dependence Cancer Cardiac murmur Cardiology follow-up encounter Cataracts, bilateral Chronic headaches COPD (chronic obstructive pulmonary disease) CVA (cerebral vascular accident) Depression Diabetes Diastolic CHF Essential (primary) hypertension Excessive bleeding Exertional shortness of breath Former smoker Gallstones Gastric reflux GI problem High cholesterol High triglycerides History of echocardiogram History of edema History of stress test Hives Hyperlipidemia Hypertension IBS (irritable bowel syndrome) Insulin dependent diabetes mellitus Migraine headache Morbid obesity with BMI of 40.0-44.9, adult Neuropathy Nicotine dependence On home oxygen therapy CIARRA (obstructive sleep apnea) Pancreatitis Pulmonary hypertension Routine health maintenance Secondary pulmonary arterial hypertension Skin tags, multiple acquired Sleep apnea Uncontrolled type 2 diabetes mellitus Uses wheelchair UTI (urinary tract infection) Vision problem Wears dentures Wears glasses Home Medications calcium citrate 200 mg (950 mg) tablet 400 mg PO QHS tab 07/21/18 [History Last Taken 11/02/18 21:00] magnesium oxide 400 mg PO QHS 09/29/18 [History Last Taken 11/02/18 21:00] multivitamin with minerals 1 tab PO DAILY 09/29/18 [History Last Taken 11/02/18 08:00] albuterol sulfate 2.5 mg INHALATION Q6H PRN PRN #120 vial 10/01/18 [Rx Last Taken 09/21/18 08:00] nitroglycerin 0.3 mg sublingual tablet 0.3 mg SUBLINGUAL Q5-15M PRN 10/21/18 [History Last Taken Unknown] aspirin 81 mg tablet,delayed release 81 mg PO DAILY 10/26/18 [History Last Taken 06/11/21] flash glucose scanning reader #1 ea 07/01/19 [Rx Last Taken Unknown] flash glucose sensor #4 ea 07/01/19 [Rx Last Taken Unknown] insulin syringe-needle U-100 0.5 mL 31 gauge x 5/16 #100 ea 09/29/19 [Rx Last Taken Unknown] furosemide 40 mg tablet 40 mg PO DAILY tab 01/21/21 [History Last Taken Unknown] insulin regular hum U-500 conc 55 - 160 unit SUBCUT TID ml 01/21/21 [History Last Taken Unknown] clopidogrel 75 mg tablet 75 mg PO DAILY #90 tab 03/04/21 [Rx Last Taken 06/08/21] pen needle, diabetic 32 gauge x 5/32 #300 each 04/12/21 [Rx Last Taken Unknown] budesonide-formoterol [Symbicort] 2 puff INHALATION BID 06/11/21 [History Last Taken Unknown] atenolol 25 mg PO 1500 06/12/21 [History Last Taken 06/12/21 15:00] insulin lispro [Humalog KwikPen Insulin] See Protocol SUBCUT ACHS 06/14/21 [History Last Taken Unknown] ipratropium-albuterol 3 ml INHALATION Q4HWA.RT 06/14/21 [History Last Taken Unknown] rosuvastatin 5 mg PO DAILY 06/14/21 [History Last Taken Unknown] losartan 50 mg PO 1500 #0 tab 06/26/21 [Rx Last Taken Unknown] cholecalciferol (vitamin D3) 50 mcg (2,000 unit) capsule 50 mcg PO DAILY 07/04/21 [History Last Taken Unknown] ergocalciferol (vitamin D2) 1,250 mcg (50,000 unit) capsule 1,250 mcg PO Q7D@1000 #10 cap 07/04/21 [Rx Last Taken Unknown] fenofibrate 54 mg tablet 54 mg PO DAILY tab 07/04/21 [History Last Taken Unknown] montelukast 10 mg tablet 10 mg PO QHS #60 tab 07/04/21 [Rx Last Taken Unknown] omega-3 fatty acids 500 mg capsule 500 mg PO BID 07/04/21 [History Last Taken Unknown] Allergy/AdvReac Type Severity Reaction Status Date / Time ciprofloxacin Allergy Severe Hives Verified 07/25/21 13:56 clindamycin Allergy Severe Hives Verified 07/25/21 13:56 codeine Allergy Severe Itching Verified 07/25/21 13:56 formoterol [From Dulera] Allergy Severe Unknown Verified 07/25/21 13:56 mometasone furoate Allergy Severe Unknown Verified 07/25/21 13:56 [From Dulera] Penicillins Allergy Severe Hives Verified 07/25/21 13:56 Sulfa (Sulfonamide Allergy Severe Hives Verified 07/25/21 13:56 Antibiotics) fluticasone Allergy Unknown Unknown Verified 07/25/21 13:56 [From Advair Diskus] gemfibrozil [From Lopid] Allergy Unknown Unknown Verified 07/25/21 13:56 metformin Allergy Unknown Upset Verified 07/25/21 13:56 Stomach oxycodone [From Percocet] Allergy Unknown Rash Verified 07/25/21 13:56 salmeterol Allergy Unknown Unknown Verified 07/25/21 13:56 [From Advair Diskus] Family History Mother Asthma Arthritis Hypertension Grandmother Cancer Brother Diabetes Heart disease Hypertension Father Heart disease Hypertension Surgical History H/O: H/O: hysterectomy History of cardiac catheterization History of coronary artery stent placement History of open reduction and internal fixation (ORIF) procedure History of right cataract extraction Hx of cataract surgery Hx of cholecystectomy Stented coronary artery (11/03/18) Social History household members: spouse Smoking Status: Former smoker Tobacco: How many years used: 50 how long ago did patient quit smokin, 1ppd second hand exposure: Yes alcohol intake: never substance use type: does not use ROS ROS ED Constitutional Constitutional ED: Denies chills, fever(s), subjective or sweats ENT ENT ED: Denies rhinorrhea Cardiovascular Cardiovascular: Denies chest pain Respiratory/Chest Respiratory/Chest: Denies cough or dyspnea Gastrointestinal Gastrointestinal: Denies nausea or vomiting Musculoskeletal Musculoskeletal: Reports other Details: See history of present illness Integumentary Reports other Details: No erythema. Wound is healing well. No drainage. No warmth. ; Denies rash Neurologic Neurologic: Denies headache(s) or weakness Endocrine Endocrinology: Denies polyuria Hematologic/Lymphatic Hematologic/Lymphatic: Reports easy bleeding and easy bruising Allergic/Immunologic Allergic/Immunologic ED: Denies urticaria EXAM Physical Exam Const Vital Signs: 07/25/21 13:52 Temperature 98 F Temperature Source Temporal Pulse Rate 66 Respiratory Rate 18 Blood Pressure 165/37 H Blood Pressure Mean 79 Pulse Ox 98 Oxygen Delivery Method Nasal Cannula Oxygen Flow Rate (L/min) 4 Positive well nourished, well developed and obese General Appearance ED: well developed Nutritional Appearance: obese HEENT Reports moist mucous membranes Neck full ROM Resp normal respiratory effort and clear to auscultation bilaterally Cardio regular rate GI non-tender Palpation: soft Back/Spine no CVA tenderness Extremity Extremity Narrative: Wound is actually quite well-healed on right lateral ankle. There is a hint of swelling just around the ankle and distal soto. It is not red. It is not warm. There is no notable pain with passive range of motion. No sign of infection in the foot toes or ankle or leg. There is no swelling up above the ankle in the calf or leg. Normal temperature. Despite her diabetes she actually has good capillary refill. Psych mental status grossly normal Skin Lesions: no lesions Rashes: no rashes MDM MDM MDM Narrative Medical decision making narrative: Patient is ray shows healing and no sign of a fracture components or other acute process. Ultrasound is also negative. I talked with the patient. She is going home and elevating it to see if this will help her. It is possible she has not been doing this is much as she did immediately after surgery. We discussed that if she has worsening pain, swelling, fevers, redness, drainage or other concerns she should return or contact her physician as soon as possible. Radiography Diagnostic Testing: Clinical Impression(s) from Imaging Studies Ankle X-Ray 07/25/21 14:35 IMPRESSION: Stable open reduction internal fixation of the distal fibula and medial malleolus. Persistent soft tissue swelling. Electronically Signed: Everardo Rivas MD at 15:04 EDT , Service support , Discharge Plan Triage Chief Complaint: Lower Extremity Injury ED Provider: Jonathan Ivan Dx/Rx/DC Orders Clinical Impression: Ankle pain, right Instructions: ED RICE Prescriptions: No Action calcium citrate 200 mg (950 mg) tablet 400 mg PO QHS RF: 0 nitroglycerin 0.3 mg tablet, sublingual 0.3 mg SUBLINGUAL Q5-15M PRN (Reason: chest pain) RF: 0 aspirin [Adult Aspirin Regimen] 81 mg tablet,delayed release (DR/EC) 81 mg PO DAILY RF: 0 (DME) FreeStyle Charli 14 Day [place] Misc See Rx Instructions .ROUTE .MEDSUPPLY Qty: 1 RF: 0 (DME) FreeStyle Charli 14 Day Sensor Kit See Rx Instructions .ROUTE .MEDSUPPLY Qty: 4 RF: 7 Humulin R U-500 (Conc) Kwikpen 500 unit/mL (3 mL) insulin pen 55 - 160 unit subcut TID RF: 0 furosemide 40 mg tablet 40 mg PO DAILY RF: 0 fenofibrate 54 mg tablet 54 mg tablet 54 mg PO DAILY RF: 0 cholecalciferol (vitamin D3) 50 mcg (2,000 unit) capsule 50 mcg PO DAILY RF: 0 ergocalciferol (vitamin D2) [Vitamin D2] 1,250 mcg (50,000 unit) capsule 1,250 mcg PO Q7D@1000 Qty: 10 RF: 0 montelukast 10 mg tablet 10 mg PO QHS Qty: 60 RF: 0 omega-3 fatty acids 500 mg capsule 500 mg PO BID RF: 0 multivitamin with minerals 1 EACH tablet 1 tab PO DAILY RF: 0 magnesium oxide 400 MG tablet 400 mg PO QHS RF: 0 albuterol sulfate 2.5 MG/3 ML solution for nebulization 2.5 mg Inhalation Q6H PRN PRN (Reason: Sob &/Or Wheezing) Qty: 120 RF: 0 budesonide-formoterol [Symbicort] 80-4.5 mcg/actuation HFA aerosol inhaler 2 puff INHALATION BID RF: 0 atenolol 25 mg tablet 25 mg PO 1500 RF: 0 ipratropium-albuterol 0.5 mg-3 mg(2.5 mg base)/3 mL solution for nebulization 3 ml inhalation Q4HWA.RT RF: 0 insulin lispro [Humalog KwikPen Insulin] 100 unit/mL insulin pen See Protocol unit subcut ACHS RF: 0 rosuvastatin 5 mg tablet 5 mg PO DAILY RF: 0 losartan 50 mg Tablet 50 mg PO 1500 Qty: 0 RF: 0 (DME) insulin syringe-needle U-100 [BD Insulin Syringe Ultra-Fine] 0.5 mL 31 gauge x 5/16 syringe See Rx Instructions .ROUTE .MEDSUPPLY Qty: 100 RF: 8 clopidogrel 75 mg tablet 75 mg PO DAILY Qty: 90 RF: 3 (DME) pen needle, diabetic [BD Ultra-Fine July Pen Needle] 32 gauge x 5/32 needle See Rx Instructions .ROUTE .MEDSUPPLY Qty: 300 RF: 3 Primary Care Provider: Lucila Asencio Referrals: Lucila Asencio MD [Primary Care Provider] - 3-5 Days if not improving Disposition Disposition: Home, Self Care
== END 2021-07-25 16:10 | disposition home or self-care (01) ==
PROVIDERS: Emergency Provider Emergency Medicine; PCP Internal Medicine
DX: S82.891D Other fracture of right lower leg, subsequent encounter for closed fracture with routine healing (principal); E11.36 Type 2 diabetes mellitus with diabetic cataract; E11.40 Type 2 diabetes mellitus with diabetic neuropathy, unspecified; E11.65 Type 2 diabetes mellitus with hyperglycemia; E66.01 Morbid (severe) obesity due to excess calories; E78.00 Pure hypercholesterolemia, unspecified; E78.1 Pure hyperglyceridemia; M79.89 Other specified soft tissue disorders; E78.5 Hyperlipidemia, unspecified; F32.A Depression, unspecified; F41.9 Anxiety disorder, unspecified; G47.33 Obstructive sleep apnea (adult) (pediatric); I11.0 Hypertensive heart disease with heart failure; I25.10 Atherosclerotic heart disease of native coronary artery without angina pectoris; I50.30 Unspecified diastolic (congestive) heart failure; I27.21 Secondary pulmonary arterial hypertension; J44.9 Chronic obstructive pulmonary disease, unspecified; K21.9 Gastro-esophageal reflux disease without esophagitis; K58.9 Irritable bowel syndrome, unspecified; Z68.41 Body mass index [BMI] 40.0-44.9, adult; Z79.02 Long term (current) use of antithrombotics/antiplatelets; Z79.4 Long term (current) use of insulin; Z79.51 Long term (current) use of inhaled steroids; Z79.82 Long term (current) use of aspirin; Z87.891 Personal history of nicotine dependence
CPT/HCPCS: 73610; 93971; 99282

== ENCOUNTER 2021-09-30 10:51 | Outpatient (CLI) | payer MEDICARE, OTHER, SELFPAY ==
[2018-11-03 13:03] VITALS: BMI 44.2
--- NOTE | 2021-09-30 11:29 | MRI_ITS ---
STUDY: MRI RIGHT ANKLE WITHOUT CONTRAST REASON FOR EXAM: Right ankle pain, right ankle injury from fall 3.5 months ago, unable to bear weight. TECHNIQUE: Standardized fat and water weighted pulse sequences were obtained in all 3 orthogonal planes. COMPARISON: Radiographs 07/25/2021. FINDINGS: There is edema in the subcutis adipose space. Normal visualized posterior tibialis tendon. Normal visualized flexor digitorum longus tendon. Normal visualized flexor hallucis longus tendon. Normal visualized peroneus longus and brevis tendons. Normal tibialis anterior tendon. Normal extensor hallucis longus tendon. Normal extensor digitorum longus tendons. Normal Achilles tendon and teno-osseous insertion. The plantar fascia is not included in [id number]. The distal tibiofibular syndesmotic ligamentous complex and lateral ligamentous complex are obscured by artifact from orthopedic hardware in the distal fibula. Normal subtalar ligaments and sinus tarsi. The deltoid ligamentous complex is obscured by artifact from orthopedic hardware in the medial malleolus. Normal tibiotalar articulation. Normal talar dome. There is a posterior malleolar fracture without demonstrated osseous union (T1 sagittal images 13-17). Normal subtalar articulations. Normal talonavicular articulation. Normal calcaneocuboid articulation. Normal navicular-cuneiform articulations. MRI/Lower Ext Joint Only (Routine) IMPRESSION: Trimalleolar fracture with artifact from orthopedic hardware. Electronically Signed: Moy Sarmiento MD at 14:29 EST Tel , Service support ,
== END 2021-09-30 23:59 | disposition short-term general hospital (02) ==
LOC: MRI 10:55
PROVIDERS: PCP Internal Medicine; Referring Provider Podiatrist; Visit Provider Podiatrist
DX: S82.891G Other fracture of right lower leg, subsequent encounter for closed fracture with delayed healing (principal); X58.XXXD Exposure to other specified factors, subsequent encounter
CPT/HCPCS: 73721

== ENCOUNTER → 2022-02-25 | Outpatient (CLI) | payer MEDICARE, OTHER, SELFPAY ==
[2018-11-03 13:03] VITALS: BMI 44.2
[2022-02-25 11:59] LABS: Absolute Lymphocyte Count 1.53 X10^3/uL (0.83-4.51); Absolute Neutrophil Count 5.8 X10^3/uL (2.0-7.7); Basophil# 0.03 X10^3/uL; Basophil% 0.4 % (0-1); Eosinophil# 0.12 X10^3/uL; Eosinophils% 1.5 % (0-5); Hematocrit 35.3 % (37-47); Hemoglobin 11.4 g/dL (12.0-15.0); Lymphocyte # 1.53 X10^3/ul (0.83-4.51); Lymphocyte % 19.1 % (19-41); Mean Corp Hgb Conc 32.3 g/dL (32-36); Mean Corpuscular Hgb 30.1 pg (27.0-32.0); Mean Corpuscular Volume 93.1 fL (81-99); Mean Platelet Vol. 12.3 fl (6.2-12.0); Monocyte# 0.56 X10^3/uL; NRBC Flagged by Analyzer 0 % (0-5); Neutrophil # 5.75 X10^3/uL (2.7-7.7); Neutrophil % 71.5 % (47-70); Platelet Count 121 K/mm3 (150-450); RBC Distribution Width CV 13.2 % (11.6-14.6); RBC Distribution Width SD 45.2 fl (35.1-43.9); Red Blood Count 3.79 M/mm3 (4.2-5.4)
[2022-02-25 12:36] LABS: ALB/GLOB Ratio 0.8 RATIO (0.9-2.4); AST(SGOT) 39 U/L (15-37); Alanine Aminotransfer ALT/SGPT 34 U/L (13-56); Albumin, Serum 3.2 g/dL (3.2-5.0); Alkaline Phosphatase 121 U/L (45-117); Anion Gap 7 (5-15); BUN 31 mg/dL (7-18); BUN/Creat Ratio 30.4 RATIO (10-20); Chloride 98 mmol/L (98-107); Cholesterol 174 mg/dL (200); Creatinine, Serum 1.02 mg/dL (0.55-1.02); EST Glomerular Filtration Rate 57 mL/min (>60); Est Glom Filt Rate - Afr Amer 69 mL/min (>60); Globulin 3.9 g/dL (2.2-4.2); Glucose 293 mg/dL (74-106); High Density Lipoprotein 39 mg/dL; Potassium 4.1 mmol/L (3.5-5.1); Protein, Total 7.1 g/dL (6.4-8.2); Sodium Level 138 mmol/L (136-145); Triglycerides 178 mg/dL; Very Low Density Lipoprotein 36 mg/dL (5-40)
== END | disposition home or self-care (01) ==
LOC: BIMLAB 11:31
PROVIDERS: PCP Internal Medicine; Referring Provider Internal Medicine; Visit Provider Internal Medicine
DX: I10 Essential (primary) hypertension (principal); E78.2 Mixed hyperlipidemia; F41.9 Anxiety disorder, unspecified; F32.9 Major depressive disorder, single episode, unspecified
CPT/HCPCS: 36415; 80053; 80061; 85025

== ENCOUNTER → 2022-05-07 | Outpatient (CLI) | payer MEDICARE, OTHER, SELFPAY ==
[2018-11-03 13:03] VITALS: BMI 44.2
[2022-05-07 17:25] LABS: Absolute Lymphocyte Count 3.92 X10^3/uL (0.83-4.51); Absolute Neutrophil Count 13.8 X10^3/uL (2.0-7.7); Basophil# 0.08 X10^3/uL; Basophil% 0.4 % (0-1); Eosinophil# 0.25 X10^3/uL; Eosinophils% 1.3 % (0-5); Hematocrit 38.5 % (37-47); Hemoglobin 12.2 g/dL (12.0-15.0); Lymphocyte # 3.92 X10^3/ul (0.83-4.51); Lymphocyte % 19.9 % (19-41); Mean Corp Hgb Conc 31.7 g/dL (32-36); Mean Corpuscular Hgb 29.6 pg (27.0-32.0); Mean Corpuscular Volume 93.4 fL (81-99); Mean Platelet Vol. 11.6 fl (6.2-12.0); Monocyte# 1.46 X10^3/uL; Monocyte% 7.4 % (0-10); NRBC Flagged by Analyzer 0 % (0-5); Neutrophil # 13.82 X10^3/uL (2.7-7.7); Neutrophil % 69.9 % (47-70); Platelet Count 207 K/mm3 (150-450); RBC Distribution Width SD 47.2 fl (35.1-43.9); Red Blood Count 4.12 M/mm3 (4.2-5.4); White Blood Count 19.7 K/mm3 (4.4-11.0)
[2022-05-07 18:00] LABS: ALB/GLOB Ratio 0.9 RATIO (0.9-2.4); AST(SGOT) 47 U/L (15-37); Alanine Aminotransfer ALT/SGPT 42 U/L (13-56); Albumin, Serum 3.4 g/dL (3.2-5.0); Alkaline Phosphatase 108 U/L (45-117); Anion Gap 7 (5-15); BUN 25 mg/dL (7-18); BUN/Creat Ratio 34.8 RATIO (10-20); Calcium,Total 9.7 mg/dL (8.5-10.1); Chloride 102 mmol/L (98-107); Creatinine, Serum 0.72 mg/dL (0.55-1.02); EST Glomerular Filtration Rate 85 mL/min (>60); Est Glom Filt Rate - Afr Amer 102 mL/min (>60); Globulin 3.8 g/dL (2.2-4.2); Glucose 59 mg/dL (74-106); Potassium 3.4 mmol/L (3.5-5.1); Protein, Total 7.2 g/dL (6.4-8.2); Sodium Level 142 mmol/L (136-145)
[2022-05-07 18:52] LABS: BNP,B-Type NATRIURETIC PEPTIDE 135.2 pg/mL (0-100)
== END | disposition home or self-care (01) ==
LOC: BIMLAB 14:46
PROVIDERS: PCP Internal Medicine; Visit Provider Internal Medicine
DX: R06.02 Shortness of breath (principal); I50.30 Unspecified diastolic (congestive) heart failure; I27.21 Secondary pulmonary arterial hypertension; I27.20 Pulmonary hypertension, unspecified; I11.0 Hypertensive heart disease with heart failure
CPT/HCPCS: 36415; 80053; 83880; 85025